=== PATIENT | male | born 1950 | race Caucasian/White ===

== ENCOUNTER 2022-01-15 16:23 | Inpatient (IN) | payer OTHER, BC ==
--- OUTSIDE RECORDS SUMMARY | 2022-01-15 16:29 | XMS REPORT | Continuity of Care Document ---
:1950 Author Organization [facility] t Address [address] [place] [address] Care Team Providers Name Role Phone Warren Luna Primary Care Physician Abelardo PIERSON, Elsa Attending Clinician Unavailable Marino Newman MD Attending Clinician Cristóbal Ochoa MD Attending Clinician CRISTÓBAL OCHOA Attending Clinician Unavailable NABEEL JOHNSON Attending Clinician Unavailable DWAIN VALDEZ Attending Clinician Unavailable TINA RAMIREZ Attending Clinician Unavailable Scar Fox Attending Clinician Sejal PATRICIA-Nabeel Middleton Attending Clinician LEONARDO CARLOS Attending Clinician Unavailable Cristóbal Ochoa MD Admitting Clinician CRISTÓBAL OCHOA Admitting Clinician Unavailable Payers Payer Name Policy Type Policy Number Effective Date Expiration Date S ource MEDICARE-PART B 5 [id number] 2020 00:00:00 BCBS 2 [id number] 2020 00:00:00 Problems Condition Condition Condition Status Onset Resolution Last Treating Co mments Source Name Details Category Date Date Treatment Clinician Date Acute Acute Disease Active 2021-02 Univers cough cough - ity of 00:00: [address] Flu Flu Disease Active 2021-02 Univers - ity of 00:00: [address] Dyslipidem Dyslipidem Disease Active 2021-02 U nivers ia ia 03-03 ity of 00:00: [place] 00 Medical Branch Uncontroll Uncontroll Disease Active 2021-02 U nivers ed ed 03-03 ity of hypertens[place] Type 2 Type 2 Disease Active 2021-02 Univers diabetes diabetes 03-03 ity of mellitus mellitus 00:00: [place] with other with other 00 Me dical specified specified Bran ch complicati complicati on on Elevated Elevated Disease Active 2021-02 Unive rs troponin I troponin I 03-03 it y of level level 00:00: [place] 00 Medical Branch Peripheral Periphera Problem Active 2021-01-05 Memoria nerve l nerve 23:07:23 l disease disease [place] (disorder) (disorder) Active Problem 01/05/2021 [facility] Syncope Syncope Problem Active 2021-01-05 Me moria (disorder) (disorder) 23:07:23 l Active Jacek Problem 01/05/2021 [facility] Hyperlipid Hyperlipi Problem Active 2021-01-05 Memoria emia demia 23:07:23 l (disorder) (disorder) He rmann Active Problem 01/05/2021 [facility] Backache Backache Problem Resolve 2021-01-05 Memoria (finding) (finding) d 23:07:23 l Resolved Jacek Problem 01/05/2021 [facility] Neck pain Neck pain Problem Resolve 2021-01-05 Memoria (finding) (finding) d 23:07:23 l Resolved Jacek Problem 01/05/2021 [facility] Shoulder Shoulder Problem Resolve 2021-01-05 Memoria pain pain d 23:07:23 l (finding) (finding) Herm dianne Resolved Problem 01/05/2021 [facility] Dizziness Dizziness Problem Active 2021-01-05 Memoria (finding) (finding) 23:07:23 l Active [place] Problem 01/05/2021 [facility] Insomnia Insomnia Disease Active Kelse y Seybold GERD GERD Disease Active April (gastroeso (gastroeso Se ybold phageal phageal reflux reflux disease) disease) 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 2 diabetes diabetes mellitus mellitus Allergies, Adverse Reactions, Alerts Allergy Allergy Status Severity Reaction(s) Onset Inactive Treating Comm ents Source Name Type Date Date Clinician Penicill Propensi Active April ins ty to 6-16 Seybold adverse 00:00: reaction 00 s NO KNOWN Drug Active Univers ALLERGIE Class ity of S [facility] penicill penicill Active Deepthi pérez in in heather Read Social History Social Habit Start Date Stop Date Quantity Comments Source History of Passive smoker [place] of tobacco use [facility] Tobacco use and 2022-01-01 2022-01-01 Smokeless tobacco Un iversity of exposure 00:00:00 00:00:00 non-user [facility] Alcohol intake 2022-01-01 2022-01-01 Ex-drinker [facility] 00:00:00 00:00:00 (finding) [facility] Exposure to 2021-12-21 2021-12-31 Not sure [facility] SARS-CoV-2 00:00:00 23:58:00 [facility] (event) [place] Social History 2020-10-13 2020-10-13 [facility] 20:43:37 20:43:37 Sex Ass[birth year] Universit y of 00:00:00 00:00:00 [facility] Smoking Status Start Date Stop Date Source Never smoked tobacco [facility] Medications Ordered Filled Start Stop Current Ordering Indication Dosage Frequency Signature Comments Components Source Medication Medication Date Date Medication? Clinician (SIG) Name Name NIFEdipine 2021-02- Yes [id number] 60mg Take 1 Univers ER 60 mg 1-24 12-25 tablet by ity o f tablet 00:00: 05:59 mouth in [place] 00 :00 the Medical [facility] for 30 days. pantoprazol 2021-02- Yes [id number] 40mg Take 1 Univers e 40 mg EC 1-24 12-25 tablet by ity of tablet 00:00: 05:59 mouth in [place] 00 :00 the [facility] for 30 days. NIFEdipine 2021-02- Yes [id number] 60mg Take 1 Univers ER 60 mg 1-24 12-25 tablet by ity o f tablet 00:00: 05:59 mouth in [place] 00 :00 the [facility] for 30 days. pantoprazol 2021-02- Yes [id number] 40mg Take 1 Univers e 40 mg EC 1-24 12-25 tablet by ity of tablet 00:00: 05:59 mouth in [place] 00 :00 the Medical morning Branch for 30 days. levalbutero 2021-02- No .31mg 0.31 mg, Univers l (XOPENEX) 03-05 Inhalation i ty of nebulizer 18:30: 17:24 , [place]CE, 1 [place] solution [place] :00 dose, On Medical 0.31 mg Sat Branch 01/03/22 at 1230, Routine KCL 2021-02 No 40meq 40 mEq, Univers (KLOR-CON 03-05 Oral, ity of M20) tablet 16:30: 17:49 ONCE, 1 [place] 40 mEq 00 :00 dose, On Medical Sat Branch 01/03/22 at 1030, Routine lisinopriL 2021-02 Yes 20mg Take 20 mg U nivers 20 mg -23 by mouth ity of tablet 13:44: in the [place] [address] morning. Medical Branch carvediloL 2021-02 Yes 25mg Take 25 mg U nivers 25 mg 23 by mouth ity of tablet 13:44: in the [place] [address] morning Medical and 25 mg Branch in the evening. Take with meals. rosuvastati 2021-02 Yes Take by Uni vers n 20 mg 23 mouth. ity of CpSP 13:44: [address] Branch tamsulosin 2021-02 Yes Take by Univ ers 0.4 mg 24 03-05 mouth ity of hr capsule 13:44: daily. [place] [address] Medical Branch insulin 2021-02 Yes 80U inject 80 Unive rs degludec - Units ity of (TRESIBA 13:44: under the [facility] s FLEXTOUCH 42 skin every Medi edwin U-100) 100 morning. Branc h unit/mL (3 mL) InPn pioglitazon 2021-02 Yes 15mg Take 15 mg Univers e (ACTOS) 23 by mouth ity of 15 mg 13:44: in the [facility] [place] [facility] 42 morning. Medical Branch lisinopriL 2021-02 Yes 20mg Take 20 mg U nivers 20 mg -23 by mouth ity of tablet 13:44: in the [place] [address] morning. Medical Branch carvediloL 2021-02 Yes 25mg Take 25 mg U nivers 25 mg -23 by mouth ity of tablet 13:44: in the [place] 42 morning Medical and 25 mg Branch in the evening. Take with meals. rosuvastati 2021-02 Yes Take by Uni vers n 20 mg 23 mouth. ity of CpSP 13:44: [address] Branch tamsulosin 2021-02 Yes Take by Univ ers 0.4 mg 24 -23 mouth ity of hr capsule 13:44: daily. [address] insulin 2021-02 Yes 80U inject 80 Unive rs degludec -23 Units ity of (TRESIBA 13:44: [place] FLEXTOUCH 42 skin every Medi edwin U-100) 100 morning. Branc h unit/mL (3 mL) InPn pioglitazon 2021-02 Yes 15mg Take 15 mg Univers e (ACTOS) 03-05 by mouth ity of 15 mg 13:44: in the [place] tablet 42 morning. Medical Branch benzonatate 2021-02- Yes [id number] 100mg Take 1 Univers 100 mg 03-05 capsule by ity of capsule 00:00: 05:59 mouth [place] 00 :00 every 8 Medical (eight) Branch hours for 7 days. benzonatate 2021-02- Yes [id number] 100mg Take 1 Univers 100 mg 03-05 capsule by ity of capsule 00:00: 05:59 mouth [place] 00 :00 every 8 Medical (eight) Branch hours for 7 days. oseltamivir 2021-02- Yes [id number] 75mg Take 1 Univers 75 mg 03-05 capsule by ity of capsule 00:00: 05:59 mouth in [place] 00 :00 the Medical morning Branch and 1 capsule in the evening. Do all this for 3 days. levalbutero 2021-02- No .31mg 0.31 mg, Univers l (XOPENEX) 03-04 Inhalation i ty of nebulizer 19:30: 20:02 , ONCE, 1 [place] solution 00 :00 dose, On Medical 0.31 mg Tue Branch 01/02/22 at 1330, Routine Sliding 2021-02 Yes Subcutaneo Univ ers Scale -22 us, TID ity of Insulin - 18:00: MEALS+HS, [place] as Lispro 00 First dose Medical (HumaLOG) + (after Branch Fsbg last Testing modificati on) on Sat01/02/22 at 1200, Until Discontinu ed, Routine NIFEdipine 2021-02 Yes 60mg 60 mg, Unive rs ER tablet 03-04 Oral, ity of 60 mg 15:00: DAILY, [place] 00 First dose Medical on Sat [place] 01/02/22 at 0900, Until Discontinu ed, Routine docusate 2021-02 Yes 100mg 100 mg, Unive rs (COLACE) 03-04 Oral, ity of capsule 100 15:00: DAILY, [place] mg 00 First dose Medical on Sat [place] 01/02/22 at 0900, Until Discontinu ed, Routine NaCl 0.9% 2021-02 Yes 1000mL at 150 Univ ers (NS) IV 1-22 mL/hr, IV ity of infusion 14:45: Infusion, [place] 1,000 mL 00 CONTINUOUS Medic al , Starting Branch on Sat01/02/22 at 0845, Until Discontinu ed, Routine melatonin 2021-02 Yes 6mg 6 mg, Univers (MELATIN) 03-04 Oral, ity of tablet 6 mg 05:30: QHSPRN, [place] 34 Starting Medical on Sat [place] 01/01/22 at 2330, Until Discontinu ed, Routine, Insomnia benzonatate 2021-02 Yes 100mg 100 mg, Un susie (TESSALON 03-04 Oral, Q8H, ity of PERLES) 04:00: First dose [place] capsule 100 00 on [facility] Medica l mg 01/01/22 Branch at 2200, Until Discontinu ed, Routine lisinopriL 2021-02 Yes 20mg 20 mg, Unive rs (PRINIVIL,Z 03-04 Oral, BID, it y of ESTRIL) 02:00: First [place] tablet 20 00 (after Medical mg last Branch modificati on) on Sat01/01/22 at 2000, Until Discontinu ed, Routine oseltamivir 2021-02 Yes 75mg 75 mg, Uni vers (TAMIFLU) 03-04 Oral, BID, ity of capsule 75 02:00: 01:59 10 doses, [place] mg 00 :00 First dose Medical (after Branch last reorder) on Sat01/01/22 at 2000, Last dose on Sat01/06/22 at 0800, JERROD enoxaparin 2021-02 Yes 40mg 40 mg, Unive rs (LOVENOX) 03-03 Subcutaneo ity of injection 23:00: [place], [place]ILY, [place] 40 mg 00 First dose Medical on Sat Branch 01/01/22 at 1700, Until Discontinu ed, Routine pantoprazol 2021-02 Yes 40mg 40 mg, Univ ers e 03-03 Oral, ity of (PROTONIX) 18:15: DAILY, [place] EC tablet 00 First dose Medi edwin 40 mg (after Branch last modificati on) on Sat01/01/22 at 1215, Until Discontinu ed, Routine sulfur 2021-02- No [id number] 5mL 5 mL, [facility] ers hexafluorid 03-03 Intravenou i ty of e microsphr 16:15: 16:15 s, ONCE, 1 [place] (LUMASON) 00 :00 dose, On Medica l injection 5 Sat [place] mL 01/01/22 at 1015, Routine
produce production team member approving Restricted medication : RAQUEL WAN tamsulosin 2021-02 Yes .4mg 0.4 mg, Univ ers (FLOMAX) 03-03 Oral, ity of capsule 0.4 15:00: DAILY, [place] mg 00 First dose Medical on Sat Branch 01/01/22 at 0900, Until Discontinu ed, Routine insulin 2021-02 Yes 40U 40 Units, Unive rs glargine 03-03 Subcutaneo ity o f (LANTUS 15:00: us, DAILY, [place] U-100) 00 First dose Medical injection on Sat Branch 40 Units 01/01/22 at 0900, Until Discontinu ed, Routine azithromyci 2021-02- No 500mg 500 mg, U nivers n 03-03 Oral, ity of (ZITHROMAX) 15:00: 14:00 DAILY, 3 [place] tablet 500 00 :00 doses, Medical mg First dose Branch on Sat01/01/22 at 0900, Last dose on Sat01/03/22 at 0900, JERROD
Re ason for Anti-Infec tive: Empiric Therapy for Suspected Infection< br>Empiric Therapy Site: Respirator y
Durat ion of therapy: 72 hours lisinopriL 2021-02 No 20mg 20 mg, Univ ers (PRINIVIL,Z 03-03 Oral, ity of ESTRIL) 15:00: 23:04 DAILY, [place] tablet 20 00 :59 First dose Medi edwin mg on Sat Branch 01/01/22 at 0900, Until Discontinu ed, Routine carvediloL 2021-02 Yes 25mg 25 mg, Unive rs (COREG) 03-03 Oral, BID ity of tablet 25 14:00: MEALS, [place] mg 00 First dose Medical on Sat Branch 01/01/22 at 0800, Until Discontinu ed, Routine Sliding 2021-02 No Subcutaneo Uni vers Scale 03-03 us, Q4H, ity of Insulin - 14:00: 14:37 First dose [place] Lispro 00 :08 (after Medical (HumaLOG) + last Branch Fsbg modificati Testing on) on Sat01/01/22 at 0800, Until Discontinu ed, Routine cloNIDine 2021-02 No .2mg 0.2 mg, [facility] ers (CATAPRES) 03-03 Oral, ity of tablet 0.2 12:30: 11:49 ONCE, 1 [place] mg 00 :00 dose, On Medical [facility] Branch 01/01/22 at 0630, Routine hydralAZINE 2021-02 Yes 10mg 10 mg, [facility] ers (APRESOLINE 03-03 Slow IV ity o f ) injection 11:53: Push, [place] 10 mg 44 Q4HPRN, Medical Starting Branch on Sat01/01/22 at 0553, Until Discontinu ed, STAT, DBP=>100; SBP=>180 NaCl 0.9% 2021-02 No 1000mL at 100 Uni vers (NS) IV 03-03 mL/hr, IV ity of infusion 09:00: 14:38 Infusion, [place] 1,000 mL 00 :18 CONTINUOUS Medic al , Starting Branch on Sat01/01/22 at 0300, Until Sat01/02/22 at 0838, Routine dextrose 2021-02 Yes 250mL 250 mL, IV Un susie 10% (D10W) 03-03 Infusion, ity of bolus 08:51: PRN - SEE [place] infusion 49 INSTRUCTIO Medic al 250 mL NS, Branch Administer over 60 Minutes, Other, If blood glucose is < or = 70 mg/dL and patient is unable to swallow or has mental status changes, Starting on Sat01/01/22 at 0251
If blood glucose is < or = 70 mg/dL and patient is unable to swallow or has mental status changes (Give glucagon order if patient needs fluid restrictio n): IF IV access available: Dextrose 10%. 1. 125 mL (? bag) of D10W IV infusion - equivalent to 12.5 g dextrose 2. Blood glucose - draw blood glucose 15 minutes after D10W Administra tion. 3. If blood glucose is < 80 mg/dL, repeat.
glucagon 2021-02 Yes 1mg 1 mg, Univers (GLUCAGEN 03-03 Intramuscu ity of DIAGNOSTIC 08:51: lar, PRN, [place] KIT) 46 Starting Medical injection 1 on Sat [place] mg 01/01/22 at 0251, Until Discontinu ed, JERROD, Blood Glucose < or = 70 mg/dL and patient is unable to swallow or has mental changes. traMADoL 2021-02- No 50mg 50 mg, Univer s (ULTRAM) 03-03 Oral, ity of tablet 50 08:50: 08:49 Q8HPRN, [place] mg 15 :15 Starting Medical on Sat Branch 01/01/22 at 0250, Until Sat01/03/22 at 0249, Routine, Pain (scale 4-6) acetaminoph 2021-02 Yes 650mg 650 mg, Un susie en 03-03 Oral, ity of (TYLENOL) 08:50: Q6HPRN, [place] tablet 650 14 Starting Medic al mg on Sat Branch 01/01/22 at 0250, Until Discontinu ed, Routine, Pain (scale 1-3) NaCl 0.9% 2021-02- No 1000mL at 999 Uni vers (NS) bolus 03-03 mL/hr, ity of infusion 08:30: 08:00 1,000 mL, [place] 1,000 mL 00 :00 IV Medical Piggyback, Branch ONCE, 1 dose, On Sat01/01/22 at 0230, STAT aspirin 2021-02 No 325mg 325 mg, Unive rs tablet 325 03-03 Oral, ONCE it y of mg 08:30: 07:37 NOW, 1 [place] 00 :00 dose, On [facility] 01/01/22 at 0230, JERROD NaCl 0.9% 2021-02 No 500mL at 999 Univ ers (NS) bolus 03-03 mL/hr, 500 it y of infusion 07:45: 07:43 mL, IV [place] [facility] Branch dose, On [facility] 01/01/22 at 0145, STAT oseltamivir 2021-02 No 75mg 75 mg, Uni vers (TAMIFLU) 03-03 Oral, ONCE ity of capsule 75 07:45: 06:58 NOW, 1 [place] mg 00 :00 dose, On [facility] 01/01/22 at 0145, JERROD ibuprofen 2021-02 No 600mg 600 mg, Uni vers (IBU) 03-03 Oral, ity of tablet 600 06:15: 06:12 ONCE, 1 [place] mg 00 :00 dose, On [facility] 01/01/22 at 0015, JERROD Pyridostigm 2020-02 Yes 60 mg = 1 M emoria ine [place] 0-14 tab, PO, l 60 MG Oral 20:19: BID, # 60 He rmann Tablet 00 tab, 3 [Mestinon] Refill(s), Pharmacy: [facility] [place], 175.26, cm, 11/24/20 15:02:00 CDT, Height, 127.727, kg, 11/24/20 15:02:00 CDT, Weight Pyridostigm 2020-02 Yes 60 mg = 1 M emoria ine [place] 0-14 tab, PO, l 60 MG Oral 20:19: BID, # 60 He rmann Tablet 00 tab, 3 [Mestinon] Refill(s), Pharmacy: [facility] [place], 175.26, cm, 11/24/20 15:02:00 CDT, Height, 127.727, kg, 11/24/20 15:02:00 CDT, Weight Aspirin 81 Yes 81mg Take 81 mg K elsey MG oral 9-20 by mouth Seybold Tablet 13:57: daily Delayed 01 Response Melatonin Yes 2{tbl} Take 2 Mer ey 10 MG oral 9-20 tablets by Sey bold Capsule 13:57: mouth 01 every night at bedtime Baclofen 10 Yes [id number] 10mg Take 1 April MG oral 9-20 tablet (10 Seybol d Tablet 00:00: mg total) 00 by mouth 3 times daily Meloxicam Yes [id number] 15mg Take 1 K elsey 15 MG oral 9-20 tablet (15 Sey bold Tablet 00:00: mg total) 00 by mouth daily Pantoprazol Yes [id number] 40mg Take 1 April e Sodium 40 9-20 tablet (40 Se ybold MG oral 00:00: mg total) Tablet 00 by mouth Delayed daily Response Insulin Pen Yes 1{box} 1 box by April Needle (Pen 08 does not Seyb old [place]) 00:00: apply 32G X 4 MM 00 route does not daily apply Misc Insulin Yes [id number] 48U Inject 48 K elsey Degludec -08 units into Seybo ld (Tresiba 00:00: the skin FlexTouch) 00 daily 100 UNIT/ML subcutaneou s Solution Pen-injecto r Adult Yes 81 mg, Memoria Aspirin 81 9-02 Daily, 0 l mg oral 21:24: Refill(s) Jayshree nn delayed 00 release tablet Adult Yes 81 mg, Memoria Aspirin 81 9-02 Daily, 0 l mg oral 21:24: Refill(s) Jayshree nn delayed 00 release tablet Adult Yes 81 mg, Memoria Aspirin 81 9-02 Daily, 0 l mg oral 21:24: Refill(s) Jayshree nn delayed 00 release tablet Melatonin Yes Bedtime, 0 Me moria 9-02 Refill(s) l 21:03: Jacek 00 Ibuprofen Yes 0 Memoria 9-02 Refill(s) l 21:03: [place] 00 Melatonin Yes Bedtime, 0 Me moria 9-02 Refill(s) l 21:03: [place] 00 Ibuprofen Yes 0 Memoria 9-02 Refill(s) l 21:03: [place] 00 Melatonin Yes Bedtime, 0 Me moria -02 Refill(s) l 21:03: Jacek Ibuprofen Yes 0 Memoria - Refill(s) l 21:03: Jacek 00 3 ML Yes 0 Memoria insulin - Refill(s) l degludec 20:55: Jacek 100 UNT/ML 00 Pen Injector [Tresiba] 3 ML Yes 0 Memoria insulin - Refill(s) l degludec 20:55: Jacek 100 UNT/ML 00 Pen Injector [Tresiba] 3 ML Yes 0 Memoria insulin - Refill(s) l degludec 20:55: [place] 100 UNT/ML 00 Pen Injector [Tresiba] tamsulosin Yes 0.4 mg = 1 M emoria 0.4 mg oral 10-13 cap, PO, l capsule 20:54: Daily, # Endy n 00 30 cap, 0 Refill(s) tamsulosin Yes 0.4 mg = 1 M emoria 0.4 mg oral 10-13 cap, PO, l capsule 20:54: Daily, # Endy n 00 30 cap, 0 Refill(s) gabapentin Yes 200 mg = 2 M emoria 100 MG Oral 10-13 cap, PO, l Capsule 20:54: Bedtime, # Herm dianne 00 240 cap, 0 Refill(s) carvedilol Yes 25 mg = 1 Me moria 25 mg oral 10-13 tab, PO, l tablet 20:54: Q12H, # 60 Jayshree nn 00 tab, 0 Refill(s) pantoprazol Yes 40 mg = 1 M emoria e 40 mg 10-13 tab, PO, l oral 20:54: Daily, # [place] enteric 00 30 tab, 0 coated Refill(s) tablet rosuvastati Yes 40 mg = 1 M emoria n 40 mg 10-13 tab, PO, l oral tablet 20:54: Bedtime, # Jacek 00 90 tab, 3 Refill(s) lisinopril Yes 40 mg = 1 Me moria 40 mg oral 10-13 tab, PO, l tablet 20:54: Daily, # [place] 00 30 tab, 0 Refill(s) venlafaxine Yes 75 mg = 1 M emoria 75 mg oral 10-13 cap, PO, l capsule, 20:54: Daily, # Jayshree nn extended 00 30 cap, 0 release Refill(s) 3 ML Yes 1.2 mg, Memoria liraglutide 10-13 SUB-Q, l 6 MG/ML 20:54: Daily, # 6 Herm dianne Prefilled 00 mL, 3 Syringe Refill(s) [Victoza] gabapentin Yes 200 mg = 2 M emoria 100 MG Oral 10-13 cap, PO, l Capsule 20:54: Bedtime, # Herm dianne 00 240 cap, 0 Refill(s) carvedilol Yes 25 mg = 1 Me moria 25 mg oral 10-13 tab, PO, l tablet 20:54: Q12H, # 60 Jayshree nn 00 tab, 0 Refill(s) pantoprazol Yes 40 mg = 1 M emoria e 40 mg 10-13 tab, PO, l oral 20:54: Daily, # [place] enteric 00 30 tab, 0 coated Refill(s) tablet rosuvastati Yes 40 mg = 1 M emoria n 40 mg 10-13 tab, PO, l oral tablet 20:54: Bedtime, # [place] 00 90 tab, 3 Refill(s) lisinopril Yes 40 mg = 1 Me moria 40 mg oral 10-13 tab, PO, l tablet 20:54: Daily, # [place] 00 30 tab, 0 Refill(s) venlafaxine Yes 75 mg = 1 M emoria 75 mg oral 10-13 cap, PO, l capsule, 20:54: Daily, # Jayshree nn extended 00 30 cap, 0 release Refill(s) 3 ML Yes 1.2 mg, Memoria liraglutide 10-13 SUB-Q, l 6 MG/ML 20:54: Daily, # 6 Herm dianne Prefilled 00 mL, 3 Syringe Refill(s) [Victoza] tamsulosin Yes 0.4 mg = 1 M emoria 0.4 mg oral 10-13 cap, PO, l capsule 20:54: Daily, # End[place] n 00 30 cap, 0 Refill(s) gabapentin Yes 200 mg = 2 M emoria 100 MG Oral 10-13 cap, PO, l Capsule 20:54: Bedtime, # Herm dianne 00 240 cap, 0 Refill(s) carvedilol Yes 25 mg = 1 Me moria 25 mg oral 10-13 tab, PO, l tablet 20:54: Q12H, # 60 Jayshree nn 00 tab, 0 Refill(s) pantoprazol Yes 40 mg = 1 M emoria e 40 mg 10-13 tab, PO, l oral 20:54: Daily, # [place] enteric 00 30 tab, 0 coated Refill(s) tablet rosuvastati Yes 40 mg = 1 M emoria n 40 mg 10-13 tab, PO, l oral tablet 20:54: Bedtime, # [place] 00 90 tab, 3 Refill(s) lisinopril Yes 40 mg = 1 Me moria 40 mg oral 10-13 tab, PO, l tablet 20:54: Daily, # Jacek 00 30 tab, 0 Refill(s) venlafaxine Yes 75 mg = 1 M emoria 75 mg oral 10-13 cap, PO, l capsule, 20:54: Daily, # Jayshree nn extended 00 30 cap, 0 release Refill(s) 3 ML Yes 1.2 mg, Memoria liraglutide 10-13 SUB-Q, l 6 MG/ML 20:54: Daily, # 6 Herm dianne Prefilled 00 mL, 3 Syringe Refill(s) [Victoza] Gabapentin Yes [id number] 100mg Take 1 April 100 MG oral 8-24 capsule Seybo ld Capsule 00:00: (100 mg 00 total) by mouth 2 times daily Tamsulosin Yes TAKE ONE Donny sey HCl 0.4 MG 7-26 (1) Seybold oral 00:00: CAPSULE BY Capsule 00 MOUTH ONCE DAILY. Venlafaxine Yes 75mg Take 1 Mer ey HCl 75 MG 7-19 capsule Seybold oral 00:00: (75 mg Capsule 24 00 total) by Hour mouth Sustained daily Release Liraglutide Yes [id number] 1.8mg Inject 1.8 April (Victoza) 6-17 mg into Seybold 18 MG/3ML 00:00: the skin subcutaneou 00 daily s Solution Pen-injecto r Pantoprazol 202- No 40mg Take 1 Donny sey e Sodium 40 5-28 09-20 tablet (40 S eybold MG oral 00:00: 00:00 mg total) Tablet 00 :00 by mouth Delayed daily Response Carvedilol Yes TAKE ONE Ke lsey 25 MG oral 5-17 (1) Seybold Tablet 00:00: TABLET(S) 00 BY MOUTH TWICE A DAY WITH MEALS. Lisinopril Yes 40mg Take 40 mg K elsey 40 MG oral 5-05 by mouth Seybo ld Tablet 00:00: daily 00 Rosuvastati Yes 10mg Take 1 Mer ey n Calcium 4-05 tablet (10 Seyb old 10 MG oral 00:00: mg total) Tablet 00 by mouth daily Immunizations Ordered Immunization Filled Immunization Date Status Commen ts Source Name Name Covid-19 Vaccine 2020-06-06 Completed April bailey (Moderna), Mrna-lnp, 00:00:00 Xander Protein, Pf, 100 Mcg/0.5ml,IM Covid-19 Vaccine 2020-05-09 Completed April bailey (Moderna), Mrna-lnp, 00:00:00 Xander Protein, Pf, 100 Mcg/0.5ml,IM Tdap- (Boostrix, 2015-12-09 Completed April bailey Adacel) 00:00:00 Vital Signs Vital Name Observation Time Observation Value Comments Source Respiratory rate 2022-01-03 17:25:00 16 /min [facility] Medical [place] Oxygen saturation in 2022-01-03 17:25:00 92 /min [facility] Arterial blood by [facility] Pulse oximetry Branch Systolic blood 2022-01-03 17:17:00 97 mm[Hg] Univer sity of pressure [facility] Diastolic blood 2022-01-03 17:17:00 55 mm[Hg] Unive rsity of pressure [facility] Heart rate 2022-01-03 17:17:00 88 /min [facility] Body temperature 2022-01-03 17:17:00 [facility]83 [facility] weight 2022-01-03 11:27:00 134.99 kg [facility] BMI 2022-01-03 11:27:00 41.51 kg/m2 [facility] Body height 2022-01-01 05:55:00 180.3 cm [facility] Systolic blood 2020-10-31 18:54:00 148 mm[Hg] April Seybold pressure Diastolic blood 2020-10-31 18:54:00 84 mm[Hg] Kelse y Seybold pressure Heart rate 2020-10-31 18:54:00 68 /min April S eybold Body temperature 2020-10-31 18:54:00 35.56 Filomena Mer ey Seybold Respiratory rate 2020-10-31 18:54:00 14 /min Mer ey Seybold Body height 2020-10-31 18:54:00 180.3 cm April S eybold Body weight 2020-10-31 18:54:00 124.739 kg April S eybold BMI 2020-10-31 18:54:00 38.35 kg/m2 April S eybold Systolic (mm Hg) 2020-11-24 20:02:00 Eliezer rial [place] Diastolic (mm Hg) 2020-11-24 20:02:00 Mem orial Jacek Heart Rate 2020-11-24 20:02:00 [facility] [place] Respitory Rate 2020-11-24 20:02:00 Memori al [place] Height 2020-11-24 20:02:00 175.26 cm [facility] Weight 2020-11-24 20:02:00 [facility] BMI Calculated 2020-11-24 20:02:00 Memori al Jacek Systolic (mm Hg) 2020-10-13 20:32:00 [facility] Diastolic (mm Hg) 2020-10-13 20:32:00 William Read Height 2020-10-13 20:32:00 180.34 cm Selena Read Weight 2020-10-13 20:32:00 Selena Read BMI Calculated 2020-10-13 20:32:00 Deepthi Mason Procedures Procedure Date / Time Performing Clinician Source Performed POCT GLUCOSE (AUTOMATED) 2022-01-03 13:18:00 Cristóbal Ochoa [facility] BASIC METABOLIC PANEL 2022-01-03 10:02:00 Cristin Cerda [facility] (NA, K, CL, CO2, GLUCOSE, Medica l Branch BUN, CREATININE, CA) POCT GLUCOSE (AUTOMATED) 2022-01-03 02:47:00 Cristóbal Ochoa [facility] POCT GLUCOSE (AUTOMATED) 2022-01-02 22:54:00 Cristóbal Ochoa [facility] POCT GLUCOSE (AUTOMATED) 2022-01-02 17:53:00 Cristóbal Ochoa [facility] POCT GLUCOSE (AUTOMATED) 2022-01-02 14:06:00 Cristóbal Ochoa [facility] CREATINE KINASE 2022-01-02 09:14:00 Nadine Che [facility] MAGNESIUM 2022-01-02 09:14:00 [facility] BASIC METABOLIC PANEL 2022-01-02 09:14:00 Behzad Seay [facility] (NA, K, CL, CO2, GLUCOSE, Medica l Branch BUN, CREATININE, CA) LIPID PANEL (96798)(TOTAL 2022-01-02 09:14:00 Cristóbal [facility]choa [facility]IG[facility], HDL) N-TERMINAL PRO-BNP 2022-01-02 09:14:00 Cristóbal Ochoa [facility] POCT GLUCOSE (AUTOMATED) 2022-01-02 09:12:00 Cristóbal Ochoa [facility] POCT GLUCOSE (AUTOMATED) 2022-01-02 05:24:00 Cristóbal Ochoa [facility] POCT GLUCOSE (AUTOMATED) 2022-01-02 01:54:00 Cristóbal Ochoa [facility] POCT GLUCOSE (AUTOMATED) 2022-01-01 22:48:00 Cristóbal Ochoa [facility] TROPONIN I 2022-01-01 18:04:00 [facility] 2022-01-01 17:58:00 Marino Newman [facility] TRANSTHORACIC ECHO (TTE) 2022-01-01 15:40:00 Behzad Seay [facility] COMPLETE W/ [facility] PO[facility] GLUCOSE (AUTOMATED) 2022-01-01 13:58:00 Marino Newman [facility] PHOSPHORUS 2022-01-01 09:01:00 Neil [facility] LACTIC ACID WHOLE BLOOD 2022-01-01 09:01:00 [facility] 2022-01-01 06:59:00 Marino Newman [facility] XR CHEST 1 VW 2022-01-01 06:19:00 Marino Newman [facility] LACTIC ACID WHOLE BLOOD 2022-01-01 06:12:00 Marino Newman [facility] BLOOD CULTURE SCREEN 2022-01-01 06:07:00 Marino Newman [facility] CK (CREATINE KINASE) + MB 2022-01-01 06:07:00 Marino Newman [facility] TROPONIN I 2022-01-01 06:07:00 Marino Newman [facility] COMP. METABOLIC PANEL 2022-01-01 06:07:00 Marino Newman [facility] ([id number]) [facility] CBC WITH DIFF 2022-01-01 06:07:00 Marino Newman [facility] GLYCOSYLATED HEMOGLOBIN 2022-01-01 06:07:00 Behzad Seay [facility] (A1C) [facility] RAPID INFLUENZA A/B 2022-01-01 06:07:00 Marino Newman [facility] COVID-19 (ID NOW RAPID 2022-01-01 06:07:[address] [facility] LAB ONLY COVID 2022-01-01 06:07:00 Marino Newman [place] [facility] HB ECG ROUTINE & RHYTHM 2022-01-01 05:56:35 Marino Newman [facility] [place] by [facility] Knee arthroplasty [facility] Jayshree nn Encounters Start End Encounter Admission Attending Care Care Encounter Source Date/Time Date/Time Type Type Clinicians Facility Department ID 2022-01-08 2022-01-08 Transition MIKE Zhou [id number] Univers 00:00:00 00:00:00 of Care Elsa SANCHEZ [id number] it y of [place] [id number] [facility] [id number] [facility] [address] 2021-12-31 2022-01-03 [facility] Marino Newman [facility] [id number] Univers 23:48:00 13:41:00 Encounter Cristóbal Ochoa [id number] ity [facility] [id number] [facility] [id number] [facility] [address] 2021-12-31 2022-01-[address] [facility] [id number] Univers 23:48:00 13:41:00 CRISTÓBAL reyes [facility] 2021-04-27 2021-04-27 Outpatient APRIL JOHNSON [id number] April 00:00:00 00:00:00 NABEEL france 2021-01-09 2021-01-09 Outpatient APRIL VALDEZ [id number] April 00:00:00 00:00:00 DWAIN france 2021-01-04 2021-01-04 Outpatient TINA RAMIREZ [id number] April 00:00:00 00:00:00 Laurenol román 2021-01-03 2021-01-03 Ambulatory nullFlavo MNA [id number] [facility] 20:15:00 20:15:00 Pre-Reg r Neurology 04 l Roger Read 2021-01-03 2021-01-03 Ambulatory nullFlavo MNA [id number] [facility] 20:15:00 20:15:00 Pre-Reg r Neurology 04 l Roger Read 2021-01-03 2021-01-03 Outpatient MHIE IE [id number] [facility] 14:15:00 14:15:00 04 heather Read 2021-01-03 2021-01-03 Outpatient Domin[facility] [id number] 14:15:00 14:15:00 Scar 04 Thomas 2020-11-24 2020-11-25 Outpatient nullFlavo MNA [id number] [facility] 19:00:00 04:59:59 r Neurology 03 l Roger Read 2020-11-24 2020-11-25 Outpatient nullFlavo MNA [id number] [facility] 19:00:00 04:59:59 r Neurology 03 l Roger Read 2020-11-24 2020-11-24 Outpatient Dominique [facility] [id number] 14:00:00 23:59:59 Scar 03 Thomas 2020-11-24 2020-11-24 Outpatient MHIE IE [id number] Memoria 14:00:00 14:00:00 03 heather Read 2020 2020-11-22 Outpatient nullFlavo MNA [id number] Memoria 20:00:00 04:59:59 r Neurology 02 l Roger Read 2020 2020-11-22 Outpatient nullFlavo MNA [id number] Mem[facility] 20:00:00 04:59:59 r Neurology 02 l Roger Read 2020 2020 Outpatient Dominique [facility] [id number] 15:00:00 23:59:59 Scar 02 Thomas 2020 2020 Outpatient MHIE MHIE [id number] Memoria 15:00:00 15:00:00 02 heather Read 2020-11-14 2020-11-14 Outpatient APRIL VALDEZ [id number] April 00:00:00 00:00:00 DWAIN Seybol d 2020-11-02 2020-11-02 Outpatient JOSÉ MIGUEL APRIL ROSADO [id number] April 00:00:00 00:00:00 DWAIN Seybol d 2020-10-31 2020-10-31 Office Feroz Johnson [id number] April 13:47:35 14:17:35 Visit Nabeel Lopez 350.1.13.13 dominique [id number] [id number] 2020-10-13 2020-10-14 Outpatient nullFlavo MNA [id number] Memoria 20:30:00 04:59:59 r Neurology 01 heather Read 2020-10-13 2020-10-14 Outpatient nullFlavo MNA [id number] [facility] 20:30:00 04:59:59 r Neurology 01 heather Read 2020-10-13 2020-10-13 Outpatient FILIBERTO Fox [facility] [id number] 15:30:00 23:59:59 Scar Zacarias Guzman 2020-10-13 2020-10-13 Outpatient HAY GUIDO [id number] [facility] 15:30:00 15:30:00 01 heather Read 2020-09-15 2020-09-15 Outpatient Ju [facility] [id number] Univers 15:40:00 15:40:00 LEONARDO reyes [facility] Results Test Description Test Time Test Comments Results Result Comments Source POCT GLUCOSE (AUTOMATED) 2022-01-03 13:42:56 Test Item Value Reference Range Interpretation Comme nts POCT GLU (test code = 0956877191) 114 mg/dL 70-110 H Lab Interpretation (test code = 43245-2) Abnormal [facility] GLUCOSE (AUTOMATED)2022-01-03 03:19:14 Test Item Value Reference Range Interpretation Comments POCT GLU (test code = 3293467258) 140 mg/dL 70-110 H Lab Interpretation (test code = Abnormal 61932-7) [facility] GLUCOSE (AUTOMATED)2022-01-02 23:59:28 Test Item Value Reference Range Interpretation Comments POCT GLU (test code = 5628927038) 155 mg/dL 70-110 H Lab Interpretation (test code = Abnormal 34781-0) [facility] GLUCOSE (AUTOMATED)2022-01-02 18:07:48 Test Item Value Reference Range Interpretation Comments POCT GLU (test code = 9197403091) 142 mg/dL 70-110 H Lab Interpretation (test code = Abnormal 92110-3) [facility] GLUCOSE (AUTOMATED)2022-01-02 14:18:05 Test Item Value Reference Range Interpretation Comments POCT GLU (test code = 3609294912) 104 mg/dL 70-110 Lab Interpretation (test code = Normal 08987-6) [facility] GLUCOSE (AUTOMATED)2022-01-02 14:00:11 Test Item Value Reference Range Interpretation Comments POCT GLU (test code = 5466112877) 96 mg/dL 70-110 Lab Interpretation (test code = Normal 84542-3) [facility] [id number] 13:50:45 Test Item Value Reference Range Interpretation Comments CK (test code = 9104418593) 7672 U/L 33-194 H Lab Interpretation (test code = Abnormal 79452-5) [facility] [id number] 11:20:18 Test Item Value Reference Range Interpretation Comments NT-proBNP (test code 482 pg/mL See_Comment H [Autom ated = 5051124705) message] The system which generated this result transmitted reference range : <=125. The reference range was not used to interpret this result as normal/abnormal . ALVARO (test code = ALVARO) Biotin has been reported to cause a negative bias, interpret results relative to patient's use of biotin. Lab Interpretation Abnormal (test code = 19969-5) [facility] (77542)(TOTAL CHOLESTEROL, TRIGLYCERIDES, HDL)2022-01-02 11:16:40 Test Item Value Reference Range Interpretation Comments CHOL (test code = 140 mg/dL 120-200 5514479523) HDL (test code = 39 mg/dL See_Comment L [Automated message] 9395655475) The system whic h generated this result transmit barbara reference range : >=40. The refer ence range was not u sed to interpret th is result as normal/abnormal . HDLC RATIO (test code = See_Comment [Au tomated message] 8311040286) The system [employer] generated this result transmit barbara reference range : <=5.0. The refe rence range was not u sed to interpret th is result as normal/abnormal . TRIG (test code = 195 mg/dL 30-170 H 4922022978) LDL CHOL (test code = 62 mg/dL See_Comment [Auto mated message] 91821-9) The system [employer] generated this result transmit barbara reference range : <=160. The refe rence range was not u sed to interpret th is result as normal/abnormal . VLDL (test code = 39 mg/dL 5-60 4092347832) Lab Interpretation (test Abnormal code = 35561-3) [facility] [id number] 11:16:20 Test Item Value Reference Range Interpretation Comments MAGNESIUM (test code = 6355316306) 1.7 mg/dL 1.7-2.4 Lab Interpretation (test code = Normal 82928-0) [facility] Metabolic Panel (NA, K, CL, CO2, GLUCOSE, BUN, CREATININE, CA)2022-01-02 11:16:19 Test Item Value Reference Range Interpretation Comments NA (test code = 137 mmol/L 135-145 4647853398) K (test code = 3.1 mmol/L 3.5-5.0 L 7816647059) CL (test code = 104 mmol/L 98-108 9760805953) CO2 TOTAL (test code = 25 mmol/L 23-31 2351569228) AGAP (test code = 2-16 4803278279) BUN (test code = 16 mg/dL 7-23 2926148176) GLUCOSE (test code = 92 mg/dL 70-110 7966434116) CREATININE (test code = 1.00 mg/dL 0.60-1.25 6533600893) CALCIUM (test code = 8.7 mg/dL 8.6-10.6 2094920724) eGFR (test code = mL/min/1.73m2 5048615869) ALVARO (test code = ALVARO) Association of Glomerular Filtration Rate (GFR) and Staging of Kidney Disease* + --+ --+ ------+| GFR (mL/min/1.73 m2) ?| With Kidney Damage ?| ?Without Kidney Damage+ --------+ --------+ +| ?>90 ?| ?Stage one ?| ? Normal ?+ ---+ ---+ -------+| ?60-89 ?| ?Stage two ?| ? Decreased GFR ? + --+ --+ ------+| ?30-59 ?| ?Stage three ?| ? Stage three ? + --+ --+ ------+| ?15-29 ?| ?Stage four ? | ? Stage four ?+ ---+ ---+ -------+| ?<15 (or dialysis) ? ?| ?Stage five ? | ? Stage five ?+ ---+ ---+ -------+ *Each stage assumes the associated GFR level has been in effect for at least three months. ?Stages 1 to 5, with or without kidney disease, indicate chronic kidney disease. Notes: Determination of stages one and two (with eGFR >59mL/min/1.73 m2) requires estimation of kidney damage for at least three months as defined by structural or functional abnormalities of the kidney, manifested by either:Pathological abnormalities or Markers of kidney damage (including abnormalities in the composition of the blood or urine or abnormalities in imaging tests). Lab Interpretation Abnormal (test code = 32157-5) [facility] GLUCOSE (AUTOMATED)2022-01-02 05:29:09 Test Item Value Reference Range Interpretation Comments POCT GLU (test code = 5864654075) 103 mg/dL 70-110 Lab Interpretation (test code = Normal 28262-2) [facility] GLUCOSE (AUTOMATED)2022-01-02 02:17:17 Test Item Value Reference Range Interpretation Comments POCT GLU (test code = 9586776927) 177 mg/dL 70-110 H Lab Interpretation (test code = Abnormal 22066-3) [facility] GLUCOSE (AUTOMATED)2022-01-01 22:55:39 Test Item Value Reference Range Interpretation Comments POCT GLU (test code = 4110497755) 134 mg/dL 70-110 H Lab Interpretation (test code = Abnormal 79952-0) [facility]2022-01-01 22:52:33 Test Item Value Reference Range Interpretation Comments Height (test code = in 3453416635) Weight (test code = lbs 3825773304) Systolic BP (test code = mmHg 1607747422) Diastolic BP (test code mmHg = 9639737490) Heart Rate (test code = bpm 7017989811) BSA (test code = 2.46 m2 5795559044) Ao root diam (test code 3.50 cm = 5086729722) Aortic root (test code = 3.5 cm 8331729174) Ao root annulus (test 3.5 cm code = 8244506085) LVOT diameter (test code 1.85 cm = 4562843965) LVOT area (test code = 2.70 cm2 6632294405) LAV(MOD-sp4) (test code 49.30 mL = 4624663567) E wave decelartion time 0.25 s (test code = 8963397788) MV Peak E Thanh (test code 71.0 cm/s = 2309821387) MV stenosis pressure 1/2 76.1 ms time (test code = 5585807244) MV Peak A Thanh (test code 74.4 cm/s = 5502591761) E/A ratio (test code = ratio 1600157213) MV Prop V (test code = 54.30 cm/s 3711969237) MV E/e' septal (test 8.7 cm/s code = 4749658900) Tapse (test code = 2.5 cm 4563160830) LVOT stroke volume (test 74.10 cm3 code = 4784759902) LVOT peak thanh (test code 125.7 cm/s = 2069802497) LVOT mn grad (test code mmHg = 6974531532) AV LVOT peak gradient mmHg (test code = 5792698164) LVOT peak VTI (test code 27.4 cm = 3196149624) LV V1 mean (test code = 101.30 cm/s 5859039430) Aortic valve mean 100.3 cm/s velocity (test code = 5855597241) Ao peak thanh (test code = 132.3 cm/s 6443010919) Ao VTI (test code = 24.7 cm 2302434131) AV area by cont VTI 3.0 cm2 (test code = 2133183242) AV area peak thanh (test 2.6 cm2 code = 0295950777) Ao max PG (test code = 7.00 mm[Hg] 7128500394) AV peak gradient (test mmHg code = 3426024253) AV valve area (test code 3.00 cm2 = 1792349067) AV mean gradient (test mmHg code = 4110455306) LVIDD (test code = 3.80 cm 8591094986) Left Ventricular End 63.0 mL Diastolic Volume by Teichholz Method (test code = 1364586) IVS (test code = 1.56 cm 5696191666) Interventricular Septum 1.56 cm Diastolic Thickness by 2D (test code = 9838878) LVPWD (test code = 1.56 cm 7027146782) PW (test code = 1.56 cm 0.6-1.2 2294798225) EF(Teich) (test code = 55.20 % 8910654058) LVIDS (test code = 2.70 cm 6782537058) Left Ventricular End 28.2 mL Systolic Volume by Teichholz Method (test code = 4467946) FS (test code = 28 % 1048783693) EF - 2D (test code = 55.20 % 53545097) Radiology Study observation (narrative) (test code = 00097-0) ALVARO (test code = ALVARO) ?Left?Ventricle: Left ventricle size is normal. Normal wall thickness. Normal wall motion. Normal systolic function with a visually estimated EF of 60 - 65%. There is impaired relaxation. ?Right?Ventricle: Right ventricle size is normal. Normal systolic function. ?Tricuspid?Valve: Insufficient regurgant jet to estimate RVSP. ?IVC/SVC: IVC was not well visualized. Left VentricleLeft ventricle size is normal. Normal wall thickness. Normal wall motion. Normal systolic function with a visually estimated EF of 60 - 65%. There is impaired relaxation.Right VentricleRight ventricle size is normal. Normal systolic function.Left AtriumLeft atrium size is normal.Right AtriumRight atrium size is normal. There is a prominent Eustachian valve.IVC/SVCIVC was not well visualized.Mitral ValveMitral valve structure is normal. Trace transvalvular regurgitation.Tricusp id ValveTricuspid valve structure is normal. Trace transvalvular regurgitation. Insufficient regurgant jet to estimate RVSP.Aortic ValveTricuspid. Mildly thickened cusps. Mildly calcified cusps.Pulmonic ValveNot well visualized.Ascending AortaNormal sized aorta.PericardiumThe pericardium is normal.Study DetailsStudy quality was adequate. A complete echocardiogram was performed using 2D, color flow Doppler and spectral Doppler. 5 mL of Lumason ultrasound enhancing agent used. [facility] GLUCOSE (AUTOMATED)2022-01-01 18:09:07 Test Item Value Reference Range Interpretation Comments POCT GLU (test code = 4418181538) 153 mg/dL 70-110 H Lab Interpretation (test code = Abnormal 51836-7) [facility] GLUCOSE (AUTOMATED)2022-01-01 14:18:07 Test Item Value Reference Range Interpretation Comments POCT GLU (test code = 6071799703) 199 mg/dL 70-110 H Lab Interpretation (test code = Abnormal 07517-7) [facility] [id number] 10:37:16 Test Item Value Reference Range Interpretation Comments PHOSPHORUS (test code = 6507561419) 2.6 mg/dL 2.5-5.0 Lab Interpretation (test code = Normal 69573-3) [facility]"
--- NOTE | 2022-01-15 17:25 | RAD REPORT ---
EXAM DESCRIPTION: Hoang Single View01/15/2022 5:19 pm CLINICAL HISTORY: Hypertension/weakness COMPARISON: 2020 FINDINGS: The lungs appear clear of acute infiltrate. The heart is normal size IMPRESSION: No acute abnormalities displayed
[2022-01-15 17:46] LABS: Absolute Lymphocytes (CBC) 2.8 K/uL (0.7-4.9); Hematocrit 38.5 % (39.6-49.0); Lymphocytes % 28.1 % (15.3-44.8); MCV 89.7 fL (80-100); MPV 7.7 fL (7.6-11.3); Protime INR 1.12
[2022-01-15 17:56] LABS: Albumin 3.6 g/dL (3.4-5.0); Bilirubin Direct 0.2 mg/dL (0-0.2); Bilirubin Total 0.5 mg/dL (0.2-1.0); Magnesium 1.9 mg/dL (1.8-2.4); Potassium 3.7 mmol/L (3.5-5.1); Troponin High Sensitivity 8.1 pg/mL (<58.9)
[2022-01-15] MEDS ORDERED: NA CHLORIDE 0.9% 1,000 ML ONE (18:19)
[2022-01-15 19:49] LABS: Urine Blood Negative (Negative); Urine Glucose Negative (Negative); Urine Protein Negative (Negative); Urine Specific Gravity 1.015 (1.005-1.030); Urine pH 5.5 (5.0-7.0)
[2022-01-15 20:27] LABS: Urine Mucus Slight /HPF (None Seen); Urine RBC <5 /HPF (None Seen); Urine WBC Clump Rare /HPF (None Seen)
--- NOTE | 2022-01-15 20:46 | ER ---
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 Luna called and said to [facility] come to ED for dehydration. Recent admit to [facility] for Flu and dehydration, still feel weak and rundown. Coronavirus screen: Vaccine status: Patient reports receiving the 2nd dose of the covid vaccine. At this time, the client does not indicate any symptoms associated with coronavirus-19. Ebola Screen: No symptoms or risks identified at this time. Initial Sepsis Screen: Does the patient meet any 2 criteria? No. Patient's initial sepsis screen is negative. Does the patient have a suspected source of infection? No. Patient's initial sepsis screen is negative. Risk Assessment: Do you want to hurt yourself or someone else? Patient reports no desire to harm self or others. Onset of symptoms is unknown. 16:50 Method Of Arrival: Wheelchair [facility] 16:50 Acuity: JOSELINE 3 jl7 Triage Assessment: 16:52 General: Appears in no apparent distress. uncomfortable, Behavior is calm, cooperative, jl7 appropriate for age. Pain: Denies pain. Neuro: Level of Consciousness is awake, alert, obeys commands, Oriented to person, place, time, situation. Cardiovascular: Patient's skin is warm and dry. Respiratory: Airway is patent Respiratory effort is even, unlabored, Respiratory pattern is regular, symmetrical. Derm: Skin is pink, warm \T\ dry. Historical: - Allergies: 16:52 No Known Allergies; jl7 - PMHx: 16:52 Diabetes mellitus; Hypertensive disorder; Atrial fibrillation; GERD; jl7 - Immunization history:: Client reports receiving the 2nd dose of the Covid vaccine. - Social history:: Smoking status: Patient denies any tobacco usage or history of. Screenin:00 Abuse screen: Denies threats or abuse. Denies injuries from another. Nutritional bp screening: No deficits noted. Tuberculosis screening: No symptoms or risk factors identified. Fall Risk Fall in past 12 months (25 points). No secondary diagnosis (0 pts). IV access (20 points). Ambulatory Aid- Crutches/Cane/Walker (15 pts). Gait- Normal/Bed Rest/Wheelchair (0 pts) Mental Status- Oriented to own ability (0 pts). Total Kim Fall Scale indicates High Risk Score (45 or more points). Fall prevention measures have been instituted. Side Rails Up X 2 Placed Close to Nursing Station Frequent Obs/Assessments Occuring Family Present and informed to notify staff if the need to leave the bedside As available patient and family educated on Fall Prevention Program and Strategies. Assessment: 17:00 General: SEE TRIAGE NOTE. bp 17:59 Reassessment: No changes from previously documented assessment. Patient and/or family bp updated on plan of care and expected duration. Pain level reassessed. 18:48 Reassessment: PT IN [place] FOR HYPOTENSION. FAILED ORTHOSTATICS. bp 20:14 Reassessment: No changes from previously documented assessment. Patient and/or family as6 updated on plan of care and expected duration. Pain level reassessed. Patient states feeling better. Vital Signs: 16:50 BP 116 / 67; Pulse 74; Resp 17; Temp 97; Pulse Ox 98% ; Weight 126.55 kg; Height 5 ft. jl7 10 in. (177.80 cm); Pain 0/10; 17:59 BP 107 / 48; Pulse 62; Resp 17; Pulse Ox 95% ; bp 18:15 BP 90 / 32; Pulse 64; Resp 18; Pulse Ox 95% ; bp 18:30 BP 92 / 34; Pulse 64; Resp 18; Pulse Ox 98% ; bp 18:45 BP 117 / 60; Pulse 63; Resp 14; Pulse Ox 96% ; bp 20:13 BP 99 / 47; Pulse 68; Resp 17 S; Pulse Ox 95% on R/A; as6 22:12 BP 115 / 63; Pulse 64; Resp 16 S; Pulse Ox 98% on R/A; as6 23:11 BP 134 / 68; Pulse 69; Resp 13 S; Pulse Ox 96% on R/A; as6 16:50 Body Mass Index 40.03 (126.55 kg, 177.80 cm) jl7 ED Course: 16:26 Patient arrived in ED. am2 16:26 Warren Luna MD is Private Physician. am2 16:40 Jamison Osuna PA is PHCP. cp 16:40 Dano Jay MD is Attending Physician. cp 16:52 Triage completed. jl7 16:52 Arm band placed on right wrist. jl7 17:00 Patient has correct armband on for positive identification. Bed in low position. Call bp light in reach. Side rails up X2. Adult w/ patient. 17:05 Gisele Henriquez, RN is Primary Nurse. mb9 17:15 Inserted saline lock: 20 gauge in right forearm, using aseptic technique. Blood bp collected. 17:21 XRAY Chest (1 view) In Process Unspecified. EDMS 17:44 Wilbert Lepe, RN is Primary Nurse. bp 20:45 Warren Luna MD is Hospitalizing Provider. cp 23:13 No provider procedures requiring assistance completed. Patient admitted, IV remains in as6 place. Administered Medications: 18:00 Drug: NS 0.9% 1000 ml Route: IV; Rate: 1 bolus; Site: right forearm; bp 23:14 Follow up: Response: No adverse reaction; IV Status: Completed infusion; IV Intake: as6 1000ml 18:17 Not Given (Physician Discretion): NS 0.9% 500 ml IV at bolus once cp 18:17 Not Given (Physician Discretion): NS 0.9% 500 ml IV at 125 ml/hr continuous cp Medication: 23:13 VIS not applicable for this client. as6 Intake: 23:14 IV: 1000ml; Total: 1000ml. as6 Outcome: 20:46 Decision to Hospitalize by Provider. cp 23:20 Patient left the ED. mw2 Signatures: Dispatcher [employer] EDAZ Jamison Osuna PA PA cp Lora Smalls, RN RN jl7 Chapis Perkins am2 Wilbert Lepe, RN RN bp Jose Espinosa mw2 Bernardo Guaman RN RN as6 Gisele Henriquez, RN RN mb9 Corrections: (The following items were deleted from the chart) 16:53 16:52 Home Meds: None; 7 jl
--- NOTE | 2022-01-15 20:46 | EDPHYS ---
Physician Documentation [facility] Name: César Vargas Age: 71 yrs Sex: Male : 1950 Arrival Date: 01/15/2022 Time: 16:26 Bed 4 Private MD: Warren Luna ED Physician Dano Jay HPI: 01/15 17:00 This 71 yrs old Male presents to ER via Wheelchair with complaints of dehydration, cp General Weakness, Dizziness, Abnormal Lab Results. 17:00 The patient's problem is reported as weakness, that is generalized, dizziness. cp 17:00 Onset: The symptoms/episode began/occurred gradually. Duration: The episode is cp continuous. Associated signs and symptoms: Pertinent positives: lightheadedness, Pertinent negatives: abdominal pain, chest pain, confusion, numbness, palpitations, vomiting. Severity of symptoms: in the emergency department the symptoms are unchanged despite home interventions. Patient's baseline: Neuro: alert and fully oriented, Motor: no deficits, Ambulation: walks without assistance, Speech: normal. 17:00 Patient reports since discharge from [facility] for influenza illness last week, has had cp continued weakness, decreased appetite. Reports new blood pressure medication started while in hospital. Historical: - Allergies: 16:52 No Known Allergies; jl7 - PMHx: 16:52 Diabetes mellitus; Hypertensive disorder; Atrial fibrillation; GERD; jl7 - Immunization history:: Client reports receiving the 2nd dose of the Covid vaccine. - Social history:: Smoking status: Patient denies any tobacco usage or history of. ROS: 17:05 Constitutional: Positive for poor PO intake, Negative for body aches, chills, fever. cp 17:05 Eyes: Negative for injury, pain, redness, and discharge. cp 17:05 ENT: Negative for drainage from ear(s), ear pain, sore throat, difficulty swallowing, difficulty handling secretions. 17:05 Cardiovascular: Negative for chest pain, edema, palpitations. 17:05 Respiratory: Negative for cough, shortness of breath, wheezing. 17:05 Abdomen/GI: Negative for abdominal pain, nausea, vomiting, and diarrhea. 17:05 Neuro: Positive for dizziness, weakness, Negative for altered mental status, syncope. cp 17:05 : Negative for urinary symptoms. cp 17:05 All other systems are negative. Exam: 17:10 CT study not indicated or reported. Reason for not performing CT: no focal deficits cp 17:10 Head/Face: Normocephalic, atraumatic. cp 17:10 Constitutional: The patient appears in no acute distress, alert, awake, non-diaphoretic, non-toxic, well developed, well nourished, obese. 17:10 Eyes: Periorbital structures: appear normal, Pupils: equal, round, and reactive to light and accomodation, Extraocular movements: intact throughout, Conjunctiva: normal, no exudate, no injection, Sclera: no appreciated abnormality, Lids and lashes: appear normal, bilaterally. 17:10 ENT: External ear(s): are unremarkable, Nose: is normal, Mouth: Lips: moist, Oral mucosa: pink and intact, moist, Posterior pharynx: Airway: no evidence of obstruction, patent, erythema, is not appreciated, exudate, is not appreciated. 17:10 Neck: ROM/movement: is normal, is supple, without pain, no range of motions limitations. 17:10 Chest/axilla: Inspection: normal. 17:10 Cardiovascular: Rate: normal, Rhythm: regular, Edema: is not appreciated, JVD: is not appreciated. 17:10 Respiratory: the patient does not display signs of respiratory distress, Respirations: normal, no use of accessory muscles, no retractions, labored breathing, is not present, Breath sounds: are clear throughout, no decreased breath sounds, no stridor, no wheezing. 17:10 Abdomen/GI: Inspection: obese Palpation: abdomen is soft and non-tender, in all quadrants. 17:10 Back: pain, is absent, ROM is normal. 17:10 Neuro: Orientation: to person, place \T\ time. Mentation: is normal, Cerebellar function: is grossly normal, Motor: moves all fours, general weakness with no focal deficits, Sensation: is normal. 17:13 ECG was reviewed by the Attending Physician. cp Vital Signs: 16:50 BP 116 / 67; Pulse 74; Resp 17; Temp 97; Pulse Ox 98% ; Weight 126.55 kg; Height 5 ft. jl7 10 in. (177.80 cm); Pain 0/10; 17:59 BP 107 / 48; Pulse 62; Resp 17; Pulse Ox 95% ; bp 18:15 BP 90 / 32; Pulse 64; Resp 18; Pulse Ox 95% ; bp 18:30 BP 92 / 34; Pulse 64; Resp 18; Pulse Ox 98% ; bp 18:45 BP 117 / 60; Pulse 63; Resp 14; Pulse Ox 96% ; bp 20:13 BP 99 / 47; Pulse 68; Resp 17 S; Pulse Ox 95% on R/A; as6 22:12 BP 115 / 63; Pulse 64; Resp 16 S; Pulse Ox 98% on R/A; as6 23:11 BP 134 / 68; Pulse 69; Resp 13 S; Pulse Ox 96% on R/A; as6 16:50 Body Mass Index 40.03 (126.55 kg, 177.80 cm) jl7 MDM: 17:00 Patient medically screened. cp 17:00 Differential diagnosis: metabolic disorder, dehydration, sepsis, volume depletion. cp 20:45 Data reviewed: vital signs, nurses notes, lab test result(s), EKG, radiologic studies, cp plain films. 20:45 Test interpretation: by ED physician or midlevel provider: ECG, plain radiologic cp studies. Counseling: I had a detailed discussion with the patient and/or guardian regarding: the historical points, exam findings, and any diagnostic results supporting the discharge/admit diagnosis, lab results, radiology results, the need for further work-up and treatment in the hospital. Response to treatment: the patient's symptoms have mildly improved after treatment. Physician consultation: Warren Luna MD was called at 20:40, was contacted at 20:40, regarding admission, to the telemetry unit. patient's condition. 01/15 16:56 Order name: Basic Metabolic Panel; Complete Time: 18:03 cp 01/15 18:03 Interpretation: Normal except: GLUC 158; BUN 30; CRE 1.55; GFR 48. cp 01/15 16:56 Order name: CBC with Diff; Complete Time: 17:52 cp 01/15 17:52 Interpretation: Normal except: RBC 4.30; HGB 12.8; HCT 38.5; PLT 479; BASO% 1.7. cp 01/15 16:56 Order name: LFT's; Complete Time: 18:03 cp 01/15 18:04 Interpretation: Normal except: GLOB 4.4; A/G 0.8. cp 01/15 16:56 Order name: Magnesium; Complete Time: 18:03 cp / 16:56 Order name: NT PRO-BNP; Complete Time: 18:03 cp 01/15 16:56 Order name: PT-INR; Complete Time: 17:52 cp 01/15 16:56 Order name: Troponin HS; Complete Time: 18:03 cp 01/15 18:04 Interpretation: Reviewed. cp / 18:18 Order name: Blood Culture Adult (2) cp 01/15 18:18 Order name: Lactate w/ 2H reflex if indic.; Complete Time: 19:48 cp / 19:48 Interpretation: Reviewed. cp / 18:18 Order name: Procalcitonin; Complete Time: 19:48 cp 01/15 19:48 Interpretation: Reviewed. cp 01/15 18:18 Order name: Urine Microscopic Only; Complete Time: 20:38 cp / 19:49 Order name: Urine Dipstick-Ancillary; Complete Time: 20:38 EDRI 01/15 20:47 Order name: SARS RAPID as6 01/15 20:51 Order name: Flu mw2 01/15 16:55 Order name: Orthostatics; Complete Time: 18:48 cp 01/15 16:56 Order name: XRAY Chest (1 view); Complete Time: 17:52 cp 01/15 16:56 Order name: EKG; Complete Time: 16:57 01/15 16:56 Order name: Cardiac monitoring; Complete Time: 17:44 01/15 16:56 Order name: EKG - Nurse/Tech; Complete Time: 17:44 01/15 16:56 Order name: IV Saline Lock; Complete Time: 17:44 01/15 21:24 Order name: COVID-19/FLU A+B as6 01/15 21:41 Order name: COVID-19/FLU A+B EDMS 01/15 22:04 Order name: Heart Healthy EDMS 01/15 22:04 Order name: Basic Metabolic Panel EDMS 01/15 22:04 Order name: Basic Metabolic Panel EDMS 01/15 22:04 Order name: CBC with Automated Diff EDMS 01/15 22:04 Order name: CBC with Automated Diff EDMS 01/15 16:56 Order name: Labs collected and sent; Complete Time: 17:44 01/15 16:56 Order name: O2 Per Protocol; Complete Time: 17:44 cp 12 16:56 Order name: O2 Sat Monitoring; Complete Time: 17:44 cp 01/15 18:18 Order name: Urine Dipstick-Ancillary (obtain specimen); Complete Time: 20:13 cp EC:13 Rate is 66 beats/min. Rhythm is regular. WV interval is normal. QRS interval is normal. cp QT interval is normal. Interpreted by me. Reviewed by me. Administered Medications: 18:00 Drug: NS 0.9% 1000 ml Route: IV; Rate: 1 bolus; Site: right forearm; bp 23:14 Follow up: Response: No adverse reaction; IV Status: Completed infusion; IV Intake: as6 1000ml 18:17 Not Given (Physician Discretion): NS 0.9% 500 ml IV at bolus once cp 18:17 Not Given (Physician Discretion): NS 0.9% 500 ml IV at 125 ml/hr continuous cp Disposition: 01/16 10:54 Co-signature as Attending Physician, Dano Jay MD I agree with the assessment and kdr plan of care. Disposition Summary: 01/15/22 20:46 Hospitalization Ordered Hospitalization Status: Observation cp Provider: Warren Luna cp Location: Telemetry/MedSurg (observation) cp Condition: Stable cp Problem: new cp Symptoms: are unchanged cp Bed/Room Type: Standard cp Room Assignment: 403(01/15/22 22:44) Diagnosis - Weakness cp - Hypotension, unspecified cp Forms: - Medication Reconciliation Form cp - SBAR form cp Signatures: Dispatcher [employer] Raven Ha RN RN mw Rittger, Kevin, MD MD kdr Page, Corey, PA PA cp Lora Smalls RN RN [email or web address] Wilbert Lepe RN RN Bernardo Livingston RN as6 Corrections: (The following items were deleted from the chart) 01/15 16:53 16:52 Home Meds: None; sophie jlKandice 22:44 20:46 cp mw
[2022-01-15] MEDS ORDERED: ONDANSETRON 4 MG/2 ML VIAL IV PRN (22:01)
[2022-01-15 22:37] LABS: SARS-COV-2 RT PCR NEGATIVE (NEGATIVE)
[2022-01-15] MEDS: NA CHLORIDE 0.9% 1,000 ML IV SCH (23:00)
[2022-01-16 00:01] VITALS: BMI 39.5
[2022-01-16] MEDS: MELATONIN 5 MG TABLET PO PRN ×2 (00:59→21:02)
[2022-01-16 04:32] LABS: Absolute Lymphocytes (CBC) 3.2 K/uL (0.7-4.9); Hematocrit 33.3 % (39.6-49.0); Lymphocytes % 34.6 % (15.3-44.8); MCV 89.2 fL (80-100); MPV 7.8 fL (7.6-11.3); RBC Red Blood Cell Count 3.74 M/uL (4.33-5.43)
[2022-01-16 04:53] LABS: Potassium 3.5 mmol/L (3.5-5.1)
[2022-01-16] MEDS ORDERED: GLUCAGON 1 MG/VIAL IM PRN (07:55)
[2022-01-16] MEDS ORDERED: D50W 25 GM/50 ML SYRINGE IV PRN (07:55)
[2022-01-16] MEDS ORDERED: PNEUMOCOCCAL VACCINE 0.5 ML IMVAC ONE (08:00)
[2022-01-16] MEDS ORDERED: INFLUENZA VACCINE (for 6+ mo) 0.5 ML DOSE IMVAC ONE (08:00)
[2022-01-16] MEDS ORDERED: D10W 125 ML IV PRN (08:02)
--- NOTE | 2022-01-16 08:37 | EKG ---
Test Date: 2022-01-15 Test Time: 17:06:35 Code Machine Operator: BP MEASUREMENT RESULTS: Intervals: Rate: 66 KS: 174 QRSD: 92 QT: 396 QTc: 415 [place]: P: 32 KS: 174 QRS: -19 T: 75 INTERPRETIVE STATEMENTS: Normal sinus rhythm Moderate voltage criteria for LVH, may be normal variant Cannot rule out Septal infarct, age undetermined Abnormal ECG Compared to ECG 09/23/2017 10:22:12 Left ventricular hypertrophy now present Myocardial infarct finding still present Electronically Signed On 01-16-22 08:34:41 [employer]PERVISOR [employer] by Gibran Reed
[2022-01-16] MEDS: INSULIN -REGULAR HUMAN 50 UNIT/0.5 ML ML SQ SCH ×3 (12:14→21:02)
[2022-01-16] MEDS: NA CHLORIDE 0.9% 1,000 ML IV SCH ×2 (12:15→22:47)
--- NOTE | 2022-01-16 19:04 | PN ---
Date of Progress Note: 01/16/2022 The patient states he feels much better today. He has been walking and no significant drops in blood pressure. However, his EKG does show subsequent changes from the one that was done in the office and he is scheduled to see Cardiology on Saturday. We will consult him now. His blood sugars were elevated, but not significantly. At present, he is eating and he is much more oriented and aler t. He has dehydration problem, which caused his admission in [place] last week and has now improved considerably. We will continue with IV fluids. Repeat blood work in the morning. Try to get an ec ho and then make a disposition. HR/MODL Voice ID: [id number] Report ID: [id number]
[2022-01-17] MEDS: NA CHLORIDE 0.9% 1,000 ML IV SCH ×3 (05:00→20:00)
[2022-01-17 06:14] LABS: Absolute Lymphocytes (CBC) 2.3 K/uL (0.7-4.9); Lymphocytes % 35.1 % (15.3-44.8); MPV 7.5 fL (7.6-11.3); RBC Red Blood Cell Count 3.67 M/uL (4.33-5.43)
[2022-01-17 06:32] LABS: Potassium 3.8 mmol/L (3.5-5.1)
[2022-01-17] MEDS ORDERED: POTASSIUM CL SA 10 MEQ TAB PO ONE (07:00)
[2022-01-17] MEDS: INSULIN -REGULAR HUMAN 50 UNIT/0.5 ML ML SQ SCH ×4 (07:30→20:30)
--- NOTE | 2022-01-17 19:07 | PN ---
Date of Progress Note: 01/17/2022 The patient continues to improve both clinically and symptomatically. His intake has improved. His dehydration is almost back to baseline. His creatinine has also improved. Awaiting results of the arpita martins, seen by Cardiology and has scheduled a stress test for Saturday as an outpatient. The patient's i nsulin requirements have dramatically changed since he has been admitted. We will instruct him on a sliding scale moderate in preparation for going home in the a.m. He has had not had any GI symptoms; however, the Protonix has been held as well and he should be ready to be discharged in the a.m. with changes in his above-outlined medication. We will add lisinopril if his blood pressure warrants it followed by the Coreg and holding nifedipine at the present as the third dose. HR/MODL Voice ID: [id number] Report ID: [id number]
[2022-01-17] MEDS: MELATONIN 5 MG TABLET PO PRN (20:28)
[2022-01-18] MEDS: NA CHLORIDE 0.9% 1,000 ML IV SCH (05:36)
[2022-01-18 06:28] LABS: Potassium 4.1 mmol/L (3.5-5.1)
--- NOTE | 2022-01-18 07:08 | ECHO ---
HEIGHT: 5 ft 10 in WEIGHT: 275 lb 9.6 oz DATE OF STUDY: 01/17/[address]: Warren Luna MD 2-DIMENSIONAL: YES M.MODE: YES DOPPLER: YES COLOR FLOW: YES TDS: PORTABLE: YES DEFINITY: BUBBLE STUDY: DIAGNOSIS: ABNORMAL ELECTROCARDIOGRAM CARDIAC HISTORY: CATHERIZATION: NO SURGERY: NO PROSTHETIC VALVE: NO PACEMAKER: NO MEASUREMENTS (cm) DIASTOLIC (NORMALS) SYSTOLIC (NORMALS) IVSd 1.1 (0.6-1.2) LA Diam 3.0 (1.9-4.0) LVEF 51% LVIDd 4.3 (3.5-5.7) LVIDs 3.2 (2.0-3.5) %FS 26% LVPWd 1.2 (0.6-1.2) Ao Diam 3.1 (2.0-3.7) 2 DIMENSIONAL ASSESSMENT: RIGHT ATRIUM: NORMAL LEFT ATRIUM: NORMAL RIGHT VENTRICLE: NORMAL LEFT VENTRICLE: NORMAL TRICUSPID VALVE: NORMAL MITRAL VALVE: NORMAL PULMONIC VALVE: NORMAL AORTIC VALVE: NORMAL PERICARDIAL EFFUSION: NONE AORTIC ROOT: NORMAL LEFT VENTRICULAR WALL MOTION: NORMAL DOPPLER/COLOR FLOW: NORMAL COMMENTS: 1. NORMAL 2-DIMENSIONAL ECHOCARDIOGRAM WITH DOPPLER. 2. NORMAL WALL MOTION 3. NO EFFUSION TECHNOLOGIST: YAZ SCHMIDT
[2022-01-18] MEDS: INSULIN -REGULAR HUMAN 50 UNIT/0.5 ML ML SQ SCH ×2 (07:30→12:18)
[2022-01-18 10:26] VITALS: O2SAT 95
[2022-01-18] MEDS ORDERED: cloNIDine HCL 0.1 MG TAB PO ONE (12:00)
[2022-01-18 12:07] VITALS: TEMP 97.2
[2022-01-18 13:53] VITALS: BP 166/82
--- NOTE | 2022-01-20 23:35 | CON ---
Date of Consultation: 01/17/2022 Reason For Consultation: Hypotension. History Of Present Illness: Mr. Vargas is 71. He has a history of diabetes, hypertension, atrial fib rillation, and gastroesophageal reflux disease. His atrial fibrillation is stable and he is in gibran l rhythm now. He takes Coreg, nifedipine, hydrochlorothiazide, Flomax, lisinopril, and Crestor. He came in with orthostatic hypotension. He is being hydrated and is feeling better. He denied chest p ain, nausea, vomiting, diaphoresis, PND, orthopnea, pedal edema, or palpitations. He complained of p resyncope. WV has been ruled out. Echocardiogram is normal. Past Medical History: As stated above. Allergies: NONE. Review of Systems: Negative. Social History: Negative. Family History: Negative. Medications: Listed earlier. Physical Examination: Vital Signs: Stable, afebrile. HEENT: Negative. Neck: Supple without any bruit, lymphadenopathy, JVD, or thyromegaly. Chest: Clear to auscultation and percussion. Cardiac: Regular rhythm and rate. No murmurs, gallops, or rubs. Abdomen: Benign. Extremities: No clubbing, cyanosis, or edema. Diagnostic Data: All within normal limits. Echocardiogram is normal. Impression And Plan: Hypotension secondary to orthostatic hypotension, polypharmacy, diabetes, atria l fibrillation, and gastroesophageal reflux disease; all those problems are stable. His echo was nor mal. His troponin is negative. BNP is negative. I think he should go home on Coreg, Crestor, and n ifedipine and I think he should hold his hydrochlorothiazide and Flomax. Continue lisinopril. I ruma l see him in the office in the next 2 weeks. MERLENE/KYAW Voice ID: [id number] Report ID: [id number]
== END 2022-01-18 14:52 | disposition home or self-care (01) | DRG 312 ==
LOC: ER 16:23 → ERHOLD 22:00 → 4TH 23:07 → OBSVTOIN 01-16 21:46
PROVIDERS: ADMIT Family Medicine; ATTEND Family Medicine
PROC: 5A09457 Assistance with Respiratory Ventilation, 24-96 Consecutive Hours, Continuous Positive Airway Pressure (ICD-10-PCS; principal; 2022-01-15)
DX: I95.1 Orthostatic hypotension (principal); E86.0 Dehydration; E11.9 Type 2 diabetes mellitus without complications; K21.9 Gastro-esophageal reflux disease without esophagitis; I10 Essential (primary) hypertension; I48.91 Unspecified atrial fibrillation; Z20.822 Contact with and (suspected) exposure to COVID-19
CPT/HCPCS: 0240U; 36415; 71045; 80048; 80076; 81003; 81015; 82947; 83605; 83735; 83880; 84145; 84484; 85025; 85610; 87040; 90732; 93005; 93306; 94660; 94760; 96360; 96361; 97116; 97161; 97530; 99284; G0378; J1815; J7030; Q2035

== ENCOUNTER 2022-02-21 09:48 | Inpatient (IN) | payer OTHER, BC ==
--- OUTSIDE RECORDS SUMMARY | 2022-02-21 09:52 | XMS REPORT | Continuity of Care Document ---
:1950 Author Organization [facility] t Address [address] [place] [address] Care Team Providers Name Role Phone Warren Luna Primary Care Physician JESSICA WILSON Attending Clinician Unavailable Elsa Zhou RN Attending Clinician Unavailable Marino Newman MD Attending Clinician Cristóbal Ochoa MD Attending Clinician CRISTÓBAL OCHOA Attending Clinician Unavailable NABEEL JOHNSON Attending Clinician Unavailable DWAIN VALDEZ Attending Clinician Unavailable TINA RAMIREZ Attending Clinician Unavailable Scar Fox Attending Clinician Sejal REFRIGERATING MACHINE OPERATOR-CNabeel Attending Clinician LEONARDO CARLOS Attending Clinician Unavailable Cristóbal Ochoa MD Admitting Clinician CRISTÓBAL OCHOA Admitting Clinician Unavailable Payers Payer Name Policy Type Policy Number Effective Date Expiration Date S ource MEDICARE-PART B 5 [id number] 2020 00:00:00 BCBS 2 [id number] 2020 00:00:00 Problems Condition Condition Condition Status Onset Resolution Last Treating Co mments Source Name Details Category Date Date Treatment Clinician Date Acute Acute Disease Active 2021-02 Univers cough cough - ity of 00:00: [address] Flu Flu Disease Active 2021-02 Univers 03-03 ity of 00:00: [address] Dyslipidem Dyslipidem Disease Active 2021-02 U preet ia ia 03-03 ity of 00:00: [place] 00 Medical Branch Uncontroll Uncontroll Disease Active 2021-02 U preet ed ed 03-03 ity of hypertensi hypertensi [...] level level 00:00: [place] 00 Medical Branch GERD GERD Disease Active April (gastroeso (gastroeso Se ybold phageal phageal reflux reflux disease) disease) Backache Backache Problem Resolve 2021-01-05 Memoria (finding) [...] 2021-01-05 Memoria (finding) (finding) 23:07:23 l Active [place] Problem 01/05/2021 [facility] 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 2 diabetes diabetes mellitus mellitus Hyperlipid Problem Active 2021-01-05 M emoria emia Hyperlipid 23:07:23 l (disorder) emia Endy n (disorder) Active Problem 01/05/2021 [facility] Peripheral Periphera Problem Active 2021-01-05 Memoria nerve l nerve 23:07:23 l disease disease Jacek (disorder) (disorder) Active Problem 01/05/2021 [facility] Syncope Syncope Problem Active 2021-01-05 Me moria (disorder) (disorder) 23:07:23 l Active Jacek Problem 01/05/2021 [facility] Insomnia Insomnia Disease Active Kelse y [place]bold Allergies, Adverse Reactions, Alerts Allergy Allergy Status Severity Reaction(s) Onset Inactive Treating Comm ents Source Name Type Date Date Clinician Penicill Propensi Active April ins ty to 6-16 Seybold adverse 00:00: reaction 00 s penicill penicill Active Memori a in in l [place] NO KNOWN Drug Active Univers ALLERGIE Class ity of S [facility] Social History Social Habit Start Date Stop Date Quantity Comments Source History of Passive smoker University of tobacco use [facility] Tobacco use and 2022-01-01 2022-01-01 Smokeless tobacco Un iversity of exposure 00:00:00 00:00:00 non-user [facility] Alcohol intake 2022-01-01 2022-01-01 Ex-drinker [facility] 00:00:00 00:00:00 (finding) [facility] Exposure to 2021-12-21 2021-12-31 Not sure [facility] SARS-CoV-2 00:00:00 23:58:00 [facility] (event) [place] Social History 2020-10-13 2020-10-13 [facility] 20:43:37 20:43:37 Sex Ass[birth year] At [birth year] Universit y of 00:00:00 00:00:00 [facility] Smoking Status Start Date Stop Date Source Never smoked tobacco [facility] Medications Ordered Filled Start Stop Current Ordering Indication Dosage Frequency Signature Comments Components Source Medication Medication Date Date Medication? Clinician (SIG) Name Name NIFEdipine 2021-02- Yes [id number] 60mg Take 1 Univers ER 60 mg 1-24 12-25 tablet by ity o f tablet 00:00: 05:59 mouth in [place] 00 :00 [facility] for 30 days. pantoprazol 2021-02- Yes [id number] 40mg Take 1 Univers e 40 mg EC 1-24 12-25 tablet by ity of tablet 00:00: 05:59 mouth in [place] 00 :00 the [facility] for 30 days. NIFEdipine 2021-02- Yes [id number] 60mg Take 1 Univers ER 60 mg 1-24 12-25 tablet by ity o f tablet 00:00: 05:59 mouth in [place] 00 :00 the [facility] for 30 days. pantoprazol 2021-02- Yes [id number] 40mg Take 1 Univers e 40 mg EC 1-24 12-25 tablet by ity of tablet 00:00: 05:59 mouth in [place] 00 :00 the Medical morning Branch for 30 days. levalbutero 2021-02- No .31mg 0.31 mg, Univers l (XOPENEX) 03-05 Inhalation i ty of nebulizer 18:30: 17:24 , [place]CE, 1 [place] solution [place] :00 dose, On Medical 0.31 mg Wed Branch 01/03/22 at 1230, Routine KCL 2021-02- No 40meq 40 mEq, Univers (KLOR-CON 03-05 Oral, ity of M20) tablet 16:30: 17:49 [place]CE, 1 [place] 40 mEq 00 :00 dose, On Medical Sat Branch 01/03/22 at 1030, Routine lisinopriL 2021-02 Yes 20mg Take 20 mg U nivers 20 mg 23 by mouth ity of tablet 13:44: in the [place] [address] morning. Medical Branch carvediloL 2021-02 Yes 25mg Take 25 mg U nivers 25 mg 23 by mouth ity of tablet 13:44: in the [place] [address] morning Medical and 25 mg Branch in the evening. Take with meals. rosuvastati 2021-02 Yes Take by Uni vers n 20 mg 23 mouth. ity of CpSP 13:44: [address] tamsulosin 2021-02 Yes Take by Univ ers 0.4 mg 24 23 mouth ity of hr capsule 13:44: daily. [place] [address] Medical F[place] insulin 2021-02 Yes 80U inject 80 Unive rs degludec - Units ity of (TRESIBA 13:44: [place] the [place] FLEXTOUCH 42 skin every Medi edwin U-100) 100 morning. Branc h unit/mL (3 mL) InPn pioglitazon 2021-02 Yes 15mg Take 15 mg Univers e (ACTOS) 23 by mouth ity of 15 mg 13:44: in the [facility] 42 morning. Medical Branch lisinopriL 2021-02 Yes 20mg Take 20 mg U nivers 20 mg -23 by mouth ity of tablet 13:44: in the [place] [address] morning. Medical Branch carvediloL 2021-02 Yes 25mg Take 25 mg U nivers 25 mg 1-23 by mouth ity of tablet 13:44: in the [place] 42 morning Medical and 25 mg Branch in the evening. Take with meals. rosuvastati 2021-02 Yes Take by Un susie n 20 mg 1-23 mouth. ity of CpSP 13:44: [address] Branch tamsulosin 2021-02 Yes Take by Univ ers 0.4 mg 24 1-23 mouth ity of hr capsule 13:44: daily. [address] Branch insulin 2021-02 Yes 80U inject 80 Unive rs degludec 1-23 Units ity of (TRESIBA 13:44: [place] FLEXTOUCH 42 skin every Medi edwin U-100) 100 morning. Branc h unit/mL (3 mL) InPn pioglitazon 2021-02 Yes 15mg Take 15 mg Univers e (ACTOS) 03-05 by mouth ity of 15 mg 13:44: in the [facility] 42 morning. Medical Branch benzonatate 2021-02- Yes [id number] 100mg Take 1 Univers 100 mg 03-05 capsule by ity of capsule 00:00: 05:59 mouth [place] 00 :00 every 8 Medical (eight) Branch hours for 7 days. benzonatate 2021-02- Yes [id number] 100mg Take 1 Univers 100 mg 03-05 capsule by ity of capsule 00:00: 05:59 mouth [place] 00 :00 every 8 Medical (eight) Branch hours for 7 days. oseltamivir 2021-02- Yes [id number] 75mg Take 1 Univers 75 mg 03-05 capsule by ity of capsule 00:00: 05:59 mouth in [place] 00 :00 the Medical morning Branch and 1 capsule in the evening. Do all this for 3 days. levalbutero 2021-02- No .31mg 0.31 mg, Univers l (XOPENEX) 03-04 Inhalation i ty of nebulizer 19:30: 20:02 , [place]CE, 1 [place] solution [place] :[place] dose, On Medical 0.31 mg Tue Branch 01/02/22 at 1330, Routine Sliding 2021-02 Yes Subcutaneo Univ ers Scale 1-22 us, TID ity of Insulin - 18:00: MEALS+HS, [place] Lispro 00 First dose Medical (HumaLOG) + (after Branch Fsbg last Testing modificati on) on Sat01/02/22 at 1200, Until Discontinu ed, Routine NIFEdipine 2021-02 Yes 60mg 60 mg, Unive rs ER tablet 03-04 Oral, ity of 60 mg 15:00: DAILY, [place] 00 First dose Medical on Sat01/02/22 at 0900, Until Discontinu ed, Routine docusate 2021-02 Yes 100mg 100 mg, Unive rs (COLACE) 03-04 Oral, ity of capsule 100 15:00: DAILY, [place] mg 00 First dose Medical on Sat01/02/22 at 0900, Until Discontinu ed, Routine NaCl [...] QHSPRN, [place] 34 Starting Medical on Sat01/01/22 at 2330, Until Discontinu ed, Routine, Insomnia benzonatate 2021-02 Yes 100mg 100 mg, Un susie (TESSALON 03-04 Oral, Q8H, ity of PERLES) 04:00: [place] capsule 100 00 on Sat Medica l mg 01/01/22 Branch at 2200, Until Discontinu ed, Routine lisinopriL 2021-02 Yes 20mg 20 mg, Unive rs (PRINIVIL,Z 03-04 Oral, BID, it y of ESTRIL) 02:00: First [place] tablet 20 00 (after Medical mg last Branch modificati on) on Sat01/01/22 at 2000, Until Discontinu ed, Routine oseltamivir 2021-02- Yes 75mg 75 mg, Uni vers (TAMIFLU) [...] 40 mg 00 First dose Medical on Mon Branch 01/01/22 at 1700, Until Discontinu ed, Routine pantoprazol 2021-02 Yes 40mg 40 mg, Univ ers e 03-03 Oral, ity of (PROTONIX) 18:15: DAILY, [place] EC tablet 00 First dose Medi edwin 40 mg (after Branch last modificati on) on Sat01/01/22 at 1215, Until Discontinu ed, Routine sulfur 2021-02 No [id number] 5mL 5 mL, [facility] ers hexafluorid 03-03 Intravenou i ty of e microsphr 16:15: 16:15 s, ONCE, 1 [place] (LUMASON) 00 :00 dose, On Medica l injection 5 Sat Branch mL 01/01/22 at 1015, Routine
swat team member approving Restricted medication : RAQUEL WAN tamsulosin 2021-02 Yes .4mg 0.4 mg, Univ ers (FLOMAX) 03-03 Oral, ity of capsule 0.4 15:00: DAILY, [place] mg 00 First dose Medical on Mon Branch 01/01/22 at 0900, Until Discontinu ed, Routine insulin 2021-02 Yes 40U 40 Units, Unive rs glargine 03-03 Subcutaneo ity o f (LANTUS 15:00: us, DAILY, [place] U-100) 00 First dose Medical injection on [facility] Branch 40 Units 01/01/22 at 0900, Until Discontinu ed, Routine azithromyci 2021-02 No 500mg 500 mg, U nivers n [...] hours lisinopriL 2021-02 No 20mg 20 mg, [facility] ers (PRINIVIL,Z 03-03 Oral, ity of ESTRIL) [...] at 0800, Until Discontinu ed, Routine cloNIDine 2021-02- No .2mg 0.2 mg, [facility] ers (CATAPRES) 03-03 Oral, ity of tablet 0.2 12:30: 11:49 ONCE, 1 [place] mg 00 :00 dose, On Medical Mon Branch 01/01/22 at 0630, Routine hydralAZINE 2021-02 Yes 10mg 10 mg, [facility] ers (APRESOLINE 03-03 Slow IV ity o [...] 250 mL, IV Un susie 10% (D10W) 1-21 Infusion, ity of bolus 08:51: PRN - [...] 46 Starting Medical injection 1 on Sat Branch mg 01/01/22 at 0251, Until Discontinu ed, [...] 03-03 Oral, ity of (TYLENOL) 08:50: Q6HPRN, [place] tablet 650 14 Starting Medic al mg [...] NOW, 1 [place] 00 :00 dose, On [facility] 01/01/22 at 0230, JERROD NaCl 0.9% 2021-02 No 500mL at 999 Univ ers (NS) bolus 03-03 mL/hr, 500 it y of infusion 07:45: 07:43 mL, IV [place] [facility] Branch dose, On Sat01/01/22 at 0145, STAT oseltamivir 2021-02 No 75mg 75 mg, Uni vers (TAMIFLU) 03-03 Oral, ONCE ity of capsule 75 07:45: 06:58 NOW, 1 [place] mg 00 :00 dose, On [facility] 01/01/22 at 0145, JERROD ibuprofen 2021-02 No 600mg 600 mg, Uni vers (IBU) 03-03 Oral, ity of tablet 600 06:15: 06:12 ONCE, 1 [place] mg 00 :00 dose, On [facility] 01/01/22 at 0015, JERROD Pyridostigm 2020-02 Yes 60 mg = 1 M emoria ine Johnson 0-14 tab, PO, l 60 MG Oral 20:19: BID, # 60 [place] Tablet 00 tab, 3 [Mestinon] Refill(s), Pharmacy: [facility] [place], 175.26, cm, 11/24/20 15:02:00 CDT, Height, 127.727, kg, 11/24/20 15:02:00 CDT, Weight Pyridostigm 2020-02 Yes 60 mg = 1 M emoria ine Johnson 0-14 tab, PO, l 60 MG Oral 20:19: BID, # 60 He r[place] Tablet 00 tab, 3 [Mestinon] Refill(s), Pharmacy: [facility] [place], 175.26, cm, 11/24/20 15:02:00 CDT, Height, 127.727, kg, 11/24/20 15:02:00 CDT, Weight Pyridostigm 2020-02 Yes 60 mg = 1 M emoria ine Johnson 0-14 tab, PO, l 60 MG Oral 20:19: BID, # 60 He rmann Tablet 00 tab, 3 [Mestinon] Refill(s), Pharmacy: [facility] [place], 175.26, cm, 11/24/20 15:02:00 CDT, Height, 127.727, kg, 11/24/20 15:02:00 CDT, Weight Aspirin 81 Yes 81mg Take 81 mg K elsey MG oral 9-20 by mouth Seybold Tablet 13:57: daily Delayed 01 Response Melatonin Yes 2{tbl} Take 2 Mer ey 10 MG oral 9-20 tablets by Sey bold Capsule 13:57: mouth 01 every night at bedtime Baclofen 10 Yes [id number] 10mg Take 1 April MG oral 9-20 tablet (10 Seybol d Tablet 00:00: mg total) 00 by mouth 3 times daily Meloxicam Yes [id number] 15mg Take 1 K elsey 15 MG oral 9-20 tablet (15 Sey bold Tablet 00:00: mg total) 00 by mouth daily Pantoprazol Yes [id number] 40mg Take 1 April e Sodium 40 9-20 tablet (40 Se ybold MG oral 00:00: mg total) Tablet 00 by mouth Delayed daily Response Insulin Pen Yes 1{box} 1 box by April Needle (Pen 10-19 does not Seyb old [place]) 00:00: apply 32G X 4 MM 00 route does not daily apply Misc Insulin Yes [id number] 48U Inject 48 K elsey Degludec 08 units into Seybo ld (Tresiba 00:00: the skin FlexTouch) 00 daily 100 UNIT/ML subcutaneou s Solution Pen-injecto r Adult Yes 81 mg, Memoria Aspirin 81 9-02 Daily, 0 l mg oral 21:24: Refill(s) Jayshree nn delayed 00 release tablet Adult Yes 81 mg, Memoria Aspirin 81 9-02 Daily, 0 l mg oral 21:24: Refill(s) Jayshree nn delayed 00 release tablet Adult 0 Yes 81 mg, Memoria Aspirin 81 9-02 Daily, 0 l mg oral 21:24: Refill(s) Jayshree nn delayed 00 release tablet Adult 0 Yes 81 mg, Memoria Aspirin 81 9-02 Daily, 0 l mg oral 21:24: Refill(s) Jayshree nn delayed 00 release tablet Melatonin 0 Yes Bedtime, 0 Me moria 9-02 Refill(s) l 21:03: Jacek Ibuprofen 0 Yes 0 Memoria 9-02 Refill(s) l 21:03: [place] Melatonin 0 Yes Bedtime, 0 Me moria 9-02 Refill(s) l 21:03: Jacek Ibuprofen 0 Yes 0 Memoria 9-02 Refill(s) l 21:03: Jacek 00 Melatonin 0 Yes Bedtime, 0 Me moria 9-02 Refill(s) l 21:03: [place] 00 Ibuprofen 0 Yes 0 Memoria 9-02 Refill(s) l 21:03: [place] 00 Melatonin 0 Yes Bedtime, 0 Me moria 9-02 Refill(s) l 21:03: Jacek Ibuprofen 0 Yes 0 Memoria 9-02 Refill(s) l 21:03: Jacek 00 3 ML Yes 0 Memoria insulin 9-02 Refill(s) l degludec 20:55: Jacek 100 UNT/ML 00 Pen Injector [Tresiba] 3 ML Yes 0 Memoria insulin 9-02 Refill(s) l degludec 20:55: Jacek 100 UNT/ML 00 Pen Injector [Tresiba] 3 ML Yes 0 Memoria insulin 9-02 Refill(s) l degludec 20:55: [place] 100 UNT/ML 00 Pen Injector [Tresiba] 3 ML Yes 0 Memoria insulin 9-02 Refill(s) l degludec 20:55: [place] 100 UNT/ML 00 Pen Injector [Tresiba] tamsulosin Yes 0.4 mg = 1 M emoria 0.4 mg oral 9-02 cap, PO, l capsule 20:54: Daily, # [...] tab, PO, l oral 20:54: Daily, # Jacek enteric 00 30 tab, 0 coated Refill(s) tablet rosuvastati Yes 40 mg = 1 M emoria n 40 mg 10-13 tab, PO, l oral tablet 20:54: Bedtime, # [place] 00 90 tab, 3 Refill(s) lisinopril Yes 40 mg = 1 Me moria 40 mg oral 10-13 tab, PO, l tablet 20:54: Daily, # [place] 00 30 tab, 0 Refill(s) venlafaxine Yes [...] tab, PO, l oral 20:54: Daily, # [place] enteric 00 30 tab, 0 coated Refill(s) [...] tab, PO, l oral 20:54: Daily, # Jacek enteric 00 30 tab, 0 coated Refill(s) tablet rosuvastati Yes 40 mg = 1 M emoria n 40 mg 10-13 tab, PO, l oral tablet 20:54: Bedtime, # [place] 00 90 tab, 3 Refill(s) lisinopril Yes [...] tab, PO, l oral 20:54: Daily, # [place] enteric 00 30 tab, 0 coated Refill(s) tablet rosuvastati Yes 40 mg = 1 M emoria n 40 mg 10-13 tab, PO, l oral tablet 20:54: Bedtime, # [place] 00 90 tab, 3 Refill(s) lisinopril Yes [...] mL, 3 Syringe Refill(s) [Victoza] Gabapentin Yes [id number] 100mg Take 1 April 100 MG oral [...] Hour mouth Sustained daily Release Liraglutide Yes [id number] 1.8mg Inject 1.8 April (Victoza) 6-17 mg into Seybold 18 MG/3ML 00:00: the skin subcutaneou 00 daily s Solution Pen-injecto r Pantoprazol 2020- No 40mg Take 1 Donny sey e Sodium 40 5-28 09-20 tablet (40 S eybold MG oral 00:00: 00:00 mg total) Tablet 00 :00 by mouth Delayed daily Response Carvedilol Yes TAKE ONE Cory lsey 25 MG oral 5-17 (1) Seybold [...] Name Name Covid-19 Vaccine 2020-06-06 Completed April zamorabomaciel (Moderna), Mrna-lnp, 00:00:00 Xander Protein, Pf, 100 Mcg/0.5ml,IM Covid-19 Vaccine 2020-05-09 Completed April bailey (Moderna), Mrna-lnp, 00:00:00 Xander Protein, Pf, 100 Mcg/0.5ml,IM Tdap- (Boostrix, 2015-12-09 Completed April bailey Adacel) 00:00:00 Vital Signs Vital Name Observation Time Observation Value Comments Source Respiratory rate 2022-01-03 17:25:00 16 /min [facility] saturation in 2022-01-03 17:25:00 92 /min [facility] Arterial blood by [facility] Pulse oximetry Branch Systolic blood 2022-01-03 17:17:00 97 mm[Hg] [facility] Diastolic blood 2022-01-03 17:17:00 55 mm[Hg] [facility] 2022-01-03 17:17:00 88 /min [facility] Body temperature 2022-01-03 17:17:00 36.83 Filomena [facility] Body weight 2022-01-03 11:27:00 134.99 kg [facility] BMI 2022-01-03 11:27:00 41.51 kg/m2 [facility] Body height 2022-01-01 05:55:00 180.3 cm [facility] Systolic blood 2020-10-31 18:54:00 148 mm[Hg] April Carpenter pressure Diastolic blood 2020-10-31 18:54:00 84 mm[Hg] Nathanael byrd [place]bold pressure Heart rate 2020-10-31 18:54:00 68 /min April Nicole noahbomaciel Body temperature 2020-10-31 18:54:00 35.56 Filomena Mer zamora ybold Respiratory rate 2020-10-31 18:54:00 14 /min Mer ey ybold Body height 2020-10-31 18:54:00 180.3 cm April Nicole lynn Body weight 2020-10-31 18:54:00 124.739 kg April Nicole noahbomaciel BMI 2020-10-31 18:54:00 38.35 kg/m2 April bailey Weight 2020-11-24 20:02:00 [facility] [place] BMI Calculated 2020-11-24 20:02:00 Deepthi han Jacek Systolic (mm Hg) 2020-11-24 20:02:00 Eliezer napoles Jacek Diastolic (mm Hg) 2020-11-24 20:02:00 Mem orial [place] Heart Rate 2020-11-24 20:02:00 Memorial Jacek Respitory Rate 2020-11-24 20:02:00 Deepthi han Jacek Height 2020-11-24 20:02:00 175.26 cm [facility] [place] Systolic (mm Hg) 2020-10-13 20:32:00 Eliezer patricial [place] Diastolic (mm Hg) 2020-10-13 20:32:00 William orial Jacek Height 2020-10-13 20:32:00 180.34 cm [facility] Jacek Weight 2020-10-13 20:32:00 [facility] Jacek BMI Calculated 2020-10-13 20:32:00 Deepthi Singletonann Procedures Procedure Date / Time Performing Clinician Source Performed POCT GLUCOSE (AUTOMATED) 2022-01-03 13:18:00 Cristóbal Ochoa [facility] BASIC METABOLIC PANEL 2022-01-03 10:02:00 Cristin Cerda [facility] (NA, K, CL, CO2, GLUCOSE, Medica l Branch BUN, CREATININE, CA) POCT GLUCOSE (AUTOMATED) 2022-01-03 02:47:00 Cristóbal Ochoa [facility] [place] [facility] POCT GLUCOSE (AUTOMATED) 2022-01-02 22:54:00 Cristóbal Ochoa [facility] [place] [facility] POCT GLUCOSE (AUTOMATED) 2022-01-02 17:53:00 Cristóbal Ochoa Uni [facility] [place] [facility] POCT GLUCOSE (AUTOMATED) 2022-01-02 14:06:00 Cristóbal Ochoa [facility] [place] [facility] CREATINE KINASE 2022-01-02 09:14:00 Nadine Che [facility] MAGNESIUM 2022-01-02 09:14:00 Behzad Seay [facility] BASIC METABOLIC PANEL 2022-01-02 09:14:00 Behzad Seay [facility] (NA, K, CL, CO2, GLUCOSE, Medica l Branch BUN, CREATININE, CA) LIPID PANEL ([id number])(TOTAL 2022-01-02 09:14:00 Cristóbal Ochoa [facility], HDL) N-TERMINAL PRO-BNP 2022-01-02 09:14[facility] ([facility]ATED) 2022-01-02 09:12:00 Cristóbal Ochoa [facility] POCT GLUCOSE (AUTOMATED) 2022-01-02 05:24:00 Don [facility] POCT GLUCOSE (AUTOMATED) 2022-01-02 01:54:00 [facility] 2022-01-01 22:48:00 Cristóbal Ochoa [facility] TROPONIN I 2022-01-01 18:04:00 [facility] ([facility]OMATED) 2022-01-01 17:58:00 Marino Newman [facility] TRANSTHORACIC ECHO (TTE) 2022-01-01 15:40:00 Behzad Seay [facility] COMPLETE W/ CONTRAST Medical [facility] POCT GLUCOSE (AUTOMATED) 2022-01-01 13:58:00 Marino Newman [facility] PHOSPHORUS 2022-01-01 09:01:00 Behzad Seay [facility] LACTIC ACID WHOLE BLOOD 2022-01-01 09:01:00 Behzad Seay [facility] URINALYSIS 2022-01-01 06:59:00 Marino Newman [facility] XR CHEST 1 VW 2022-01-01 06:19:00 Marino Newman [facility] LACTIC ACID WHOLE BLOOD 2022-01-01 06:12:00 Marino Newman [facility] BLOOD CULTURE SCREEN 2022-01-01 06:07:00 Marino Newman [facility] CK (CREATINE KINASE) + MB 2022-01-01 06:07:00 Marino Newman [facility] TROPONIN I 2022-01-01 06:07:00 Marino Newman [facility] COMP. METABOLIC PANEL 2022-01-01 06:07:00 Marino Newman [facility] ([id number]) [facility] CBC WITH DIFF 2022-01-01 06:07:00 Marino Newman [facility] GLYCOSYLATED HEMOGLOBIN 2022-01-01 06:07:00 Behzad Seay [facility] (A1C) [facility] RAPID INFLUENZA A/B 2022-01-01 06:07:00 Marino Newman [facility] COVID-19 (ID NOW RAPID 2022-01-01 06:07:00 Marino Newman [facility] TESTING) [facility] LAB ONLY COVID 2022-01-01 06:07:00 Marino Newman [facility] INTERPRETATION [facility] HB ECG ROUTINE & RHYTHM 2022-01-01 05:56:35 Marino Newman [facility] Knee arthroplasty [facility] Encounters Start End Encounter Admission Attending Care Care Encounter Source Date/Time Date/Time Type Type Clinicians Facility Department ID 2022-01-25 2022-01-[address] [facility] [id number] [place] 09:15:00 09:15:00 [id number] [facility] 2022-01-08 2022-01-08 Transition MIKE Zhou [id number] Univers 00:00:00 00:00:00 of Care Elsa SANCHEZ [id number] it y of KALEN [id number] Lizette leung [id number] [place] [address] Branch 2021-12-31 2022-01-03 Hospital Marino Newman [facility] [id number] [facility] 23:48:00 13:41:00 Encounter Cristóbal Ochoa [id number] [facility] [id number] [facility] [id number] [address] 2021-12-31 2022-01-03 Inpatient Ginette OCHOA [facility] JUAN ANTONIO [id number] Univers 23:48:00 13:41:00 CRISTÓBAL reyes [facility] 2021-04-27 2021-04-27 Outpatient APRIL JOHSNON [id number] April 00:00:00 00:00:00 NABEEL Seybol d 2021-01-09 2021-01-09 Outpatient APRIL VALDEZ [id number] April 00:00:00 00:00:00 DWAIN Seybol d 2021-01-04 2021-01-04 Outpatient TINA RAMIREZ [id number] April 00:00:00 00:00:00 Seybol d 2021-01-03 2021-01-03 Ambulatory nullFlavo MNA [id number] Memoria 20:15:00 20:15:00 Pre-Reg r Neurology 04 l Reeves Jacek 2021-01-03 2021-01-03 Ambulatory nullFlavo MNA [id number] Memoria 20:15:00 20:15:00 Pre-Reg r Neurology 04 l Roger Read 2021-01-03 2021-01-03 Outpatient MHIE MHIE [id number] Memoria 14:15:00 14:15:00 04 heather Read 2021-01-03 2021-01-03 Outpatient FILIBERTO Fox MHMISCHER [id number] 14:15:00 14:15:00 Scar 04 Thomas 2020-11-24 2020-11-25 Outpatient nullFlavo MNA [id number] Memoria 19:00:00 04:59:59 r Neurology 03 l Roger Read 2020-11-24 2020-11-25 Outpatient nullFlavo MNA [id number] Memoria 19:00:00 04:59:59 r Neurology 03 l Reeves Jacek 2020-11-24 2020-11-24 Outpatient UMA FoxSCHCHAPO MHMISCHER [id number] 14:00:00 23:59:59 Scar Renae Guzman 2020-11-24 2020-11-24 Outpatient MHIE MHIE [id number] Memoria 14:00:00 14:00:00 03 l Jacek 2020 2020-11-22 Outpatient nullFlavo MNA [id number] Memoria 20:00:00 04:59:59 r Neurology 02 l Roegr Diezann 2020 2020-11-22 Outpatient nullFlavo MNA [id number] Memoria 20:00:00 04:59:59 r Neurology 02 l Roger Diezann [address] [facility] [id number] 15:00:00 23:59:59 Scar Vale Guzman 2020 2020 Outpatient IE IE [id number] Memoria 15:00:00 15:00:00 02 l Jacek 2020-11-14 2020-11-14 Outpatient APRIL VALDEZ [id number] April 00:00:00 00:00:00 DWAIN france 2020-11-02 2020-11-02 Outpatient APRIL VALDEZ [id number] April 00:00:00 00:00:00 DWAIN france 2020-10-31 2020-10-31 Office Feroz Johnson [id number] April 13:47:35 14:17:35 Visit Nabeel Lopez [id number] [facility] [id number] 2020-10-13 2020-10-14 Outpatient nullFlavo MNA [id number] Memoria 20:30:00 04:59:59 r Neurology 01 l Reevesnany Diezann 2020-10-13 2020-10-14 Outpatient nullFlavo MNA [id number] Memoria 20:30:00 04:59:59 r Neurology 01 l Reevesnany Diezann 2020-10-13 2020-10-13 [facility] [id number] 15:30:00 23:59:59 Scar Zacarias Thomas 2020-10-13 2020-10-13 Outpatient IE IE [id number] Memoria 15:30:00 15:30:00 01 heather Read 2020-09-15 2020-09-15 Outpatient R TERRANCE, [facility] [id number] Univers 15:40:00 15:40:00 LEONARDO reyes [facility] Results Test Description Test Time Test Comments Results Result Comments Source POCT GLUCOSE (AUTOMATED) 2022-01-03 13:42:56 Test Item Value Reference Range Interpretation Comme nts POCT GLU (test code = 8394629335) 114 mg/dL 70-110 H Lab Interpretation (test code = 51889-6) [facility] 03:19:14 Test Item Value Reference Range Interpretation Comments POCT GLU (test code = 8737521151) 140 mg/dL 70-110 H Lab Interpretation (test code = Abnormal 84663-3) [facility]2022-01-02 23:59:28 Test Item Value Reference Range Interpretation Comments POCT GLU (test code = 5821177419) 155 mg/dL 70-110 H Lab Interpretation (test code = Abnormal 97306-1) [facility]2022-01-02 18:07:48 Test Item Value Reference Range Interpretation Comments POCT GLU (test code = 3461608870) 142 mg/dL 70-110 H Lab Interpretation (test code = Abnormal 47483-0) [facility]2022-01-02 14:18:05 Test Item Value Reference Range Interpretation Comments POCT GLU (test code = 4623567927) 104 mg/dL 70-110 Lab Interpretation (test code = Normal 39232-5) [facility] 14:00:11 Test Item Value Reference Range Interpretation Comments POCT GLU (test code = 0098988317) 96 mg/dL 70-110 Lab Interpretation (test code = Normal 62281-2) [facility]CREAT[facility] [id number] 13:50:45 Test Item Value Reference Range Interpretation Comments CK (test code = 8392467277) 7672 U/L 33-194 H Lab Interpretation (test code = Abnormal 19558-6) [facility]AL [id number] 11:20:18 Test Item Value Reference Range Interpretation Comments NT-proBNP (test code 482 pg/mL See_Comment H [Autom ated = 7935240796) message] The system which generated this result transmitted reference range : <=125. The reference range was not used to interpret this result as normal/abnormal . ALVARO (test code = ALVARO) Biotin has been reported to cause a negative bias, interpret results relative to patient's use of biotin. Lab Interpretation Abnormal (test code = 47233-7) [facility] HospitalLIP[facility] PANEL (52950)(TOTAL CHOLESTEROL, TRIGLYCERIDES, HDL)2022-01-02 11:16:40 Test Item Value Reference Range Interpretation Comments CHOL (test code = 140 mg/dL 120-200 7489382687) HDL (test code = 39 mg/dL See_Comment L [Automated message] 3498535207) The system [employer] generated this result transmit barbara reference range : >=40. The refer ence range was not u sed to interpret th is result as normal/abnormal . HDLC RATIO (test code = See_Comment [Au tomated message] 2022941063) The system [employer] generated this result transmit barbara reference range : <=5.0. The refe rence range was not u sed to interpret th is result as normal/abnormal . TRIG (test code = 195 mg/dL 30-170 H 0304425483) LDL CHOL (test code = 62 mg/dL See_Comment [Auto mated message] 87113-5) The system [employer] generated this result transmit barbara reference range : <=160. The refe rence range was not u sed to interpret th is result as normal/abnormal . VLDL (test code = 39 mg/dL 5-60 3965637438) Lab Interpretation (test Abnormal code = 79028-1) [facility] HospitalMagnesium [id number] 11:16:20 Test Item Value Reference Range Interpretation Comments MAGNESIUM (test code = 9933065971) 1.7 mg/dL 1.7-2.4 Lab Interpretation (test code = Normal 39283-7) [facility] Metabolic Panel (NA, K, CL, CO2, GLUCOSE, BUN, CREATININE, CA)2022-01-02 11:16:19 Test Item Value Reference Range Interpretation Comments NA (test code = 137 mmol/L 135-145 7525176471) K (test code = 3.1 mmol/L 3.5-5.0 L 7396711397) CL (test code = 104 mmol/L 98-108 3517867793) CO2 TOTAL (test code = 25 mmol/L 23-31 3095512319) AGAP (test code = 2-16 0625652178) BUN (test code = 16 mg/dL 7-23 4050005789) GLUCOSE (test code = 92 mg/dL 70-110 9247507606) CREATININE (test code = 1.00 mg/dL 0.60-1.25 8487356565) CALCIUM (test code = 8.7 mg/dL 8.6-10.6 4072500058) eGFR (test code = mL/min/1.73m2 1313692621) ALVARO (test code = ALVARO) Association of [...] tests). Lab Interpretation Abnormal (test code = 61583-2) [facility] GLUCOSE (AUTOMATED)2022-01-02 05:29:09 Test Item Value Reference Range Interpretation Comments POCT GLU (test code = 2756133853) 103 mg/dL 70-110 Lab Interpretation (test code = Normal 18956-6) [facility] GLUCOSE (AUTOMATED)2022-01-02 02:17:17 Test Item Value Reference Range Interpretation Comments POCT GLU (test code = 7825919372) 177 mg/dL 70-110 H Lab Interpretation (test code = Abnormal 81052-4) [facility] GLUCOSE (AUTOMATED)2022-01-01 22:55:39 Test Item Value Reference Range Interpretation Comments POCT GLU (test code = 7625506036) 134 mg/dL 70-110 H Lab Interpretation (test code = Abnormal 42077-8) [facility] (TTE)2022-01-01 22:52:33 Test Item Value Reference Range Interpretation Comments Height (test code = in 7434280975) Weight (test code = lbs 0219949362) Systolic BP (test code = mmHg 9314200468) Diastolic BP (test code mmHg = 7265100808) Heart Rate (test code = bpm 0424996073) BSA (test code = 2.46 m2 2567559343) Ao root diam (test code 3.50 cm = 7696715926) Aortic root (test code = 3.5 cm 4518301715) Ao root annulus (test 3.5 cm code = 9011106155) LVOT diameter (test code 1.85 cm = 1393543062) LVOT area (test code = 2.70 cm2 4612501840) LAV(MOD-sp4) (test code 49.30 mL = 9720234900) E wave decelartion time 0.25 s (test code = 3034518154) MV Peak E Thanh (test code 71.0 cm/s = 2764263877) MV stenosis pressure 1/2 76.1 ms time (test code = 0652987628) MV Peak A Thanh (test code 74.4 cm/s = 7031819934) E/A ratio (test code = ratio 8733886640) MV Prop V (test code = 54.30 cm/s 7417981931) MV E/e' septal (test 8.7 cm/s code = 0849124229) Tapse (test code = 2.5 cm 1085239624) LVOT stroke volume (test 74.10 cm3 code = 5497034353) LVOT peak thanh (test code 125.7 cm/s = 3681031211) LVOT mn grad (test code mmHg = 5965646104) AV LVOT peak gradient mmHg (test code = 0452135457) LVOT peak VTI (test code 27.4 cm = 9450858370) LV V1 mean (test code = 101.30 cm/s 7527248736) Aortic valve mean 100.3 cm/s velocity (test code = 7505868327) Ao peak thanh (test code = 132.3 cm/s 7614972599) Ao VTI (test code = 24.7 cm 5346810497) AV area by cont VTI 3.0 cm2 (test code = 4223614403) AV area peak thanh (test 2.6 cm2 code = 2152652435) Ao max PG (test code = 7.00 mm[Hg] 8153496808) AV peak gradient (test mmHg code = 6254836454) AV valve area (test code 3.00 cm2 = 1467269118) AV mean gradient (test mmHg code = 3649623169) LVIDD (test code = 3.80 cm 1669408517) Left Ventricular End 63.0 mL Diastolic Volume by Teichholz Method (test code = 0903795) IVS (test code = 1.56 cm 7328477057) Interventricular Septum 1.56 cm Diastolic Thickness by 2D (test code = 1687351) LVPWD (test code = 1.56 cm 2066699820) PW (test code = 1.56 cm 0.6-1.7 1206491817) EF(Teich) (test code = 55.20 % 1584690227) LVIDS (test code = 2.70 cm 2143656858) Left Ventricular End 28.2 mL Systolic Volume by Teichholz Method (test code = 4308510) FS (test code = 28 % 0073135381) EF - 2D (test code = 55.20 % 81019879) Radiology Study observation (narrative) (test code = 92364-0) ALVARO (test code = ALVARO) ?Left?Ventricle: Left [...] mL of Lumason ultrasound enhancing agent used. [facility] GLUCOSE (AUTOMATED)2022-01-01 18:09:07 Test Item Value Reference Range Interpretation Comments POCT GLU (test code = 0910551500) 153 mg/dL 70-110 H Lab Interpretation (test code = Abnormal 88350-0) [facility] GLUCOSE (AUTOMATED)2022-01-01 14:18:07 Test Item Value Reference Range Interpretation Comments POCT GLU (test code = 2960469109) 199 mg/dL 70-110 H Lab Interpretation (test code = Abnormal 15844-7) [facility] Hospital[facility]osph[facility] [id number] 10:37:16 Test Item Value Reference Range Interpretation Comments PHOSPHORUS (test code = 6064373916) 2.6 mg/dL 2.5-5.0 Lab Interpretation (test code = Normal 50018-0) [facility]"
[2022-02-21 10:42] LABS: Absolute Lymphocytes (CBC) 1.8 K/uL (0.7-4.9); Hematocrit 38.6 % (39.6-49.0); Lymphocytes % 30.7 % (15.3-44.8); MCV 89.2 fL (80-100); MPV 7.6 fL (7.6-11.3); RBC Red Blood Cell Count 4.32 M/uL (4.33-5.43)
[2022-02-21] MEDS ORDERED: NA CHLORIDE 0.9% 1,000 ML ONE ×2 (10:47→14:25)
[2022-02-21 10:50] LABS: Urine Blood Negative (Negative); Urine Glucose Negative (Negative); Urine Protein Trace (Negative); Urine Specific Gravity 1.025 (1.005-1.030); Urine pH 5.5 (5.0-7.0)
[2022-02-21 10:59] LABS: Urine Bacteria None Seen /HPF (<20); Urine RBC <5 /HPF (None Seen)
[2022-02-21 11:00] LABS: Albumin 3.7 g/dL (3.4-5.0); Bilirubin Total 0.3 mg/dL (0.2-1.0); Potassium 4.1 mmol/L (3.5-5.1); Protein, Total 7.7 g/dL (6.4-8.2)
--- NOTE | 2022-02-21 11:32 | ER ---
Nurse's Notes [facility] Name: César Vargas Age: 71 yrs Sex: Male : 1950 Arrival Date: 02/21/2022 Time: 09:58 Bed 27 Private MD: Warren Luna Diagnosis: Acute kidney failure, unspecified Presentation: 02/21 10:00 Chief complaint: Patient states: "I saw Dr. Luna yesterday and today I got a call aa5 saying that I needed to come to the ER because my kidney function is not normal". Pt reports was recently admitted for dehydration. 10:00 Coronavirus screen: At this time, the client does not indicate any symptoms associated aa5 with coronavirus-19. Ebola Screen: Patient denies travel to an Ebola-affected area in the 21 days before illness onset. Initial Sepsis Screen: Does the patient meet any 2 criteria? HR > 90 bpm. Does the patient have a suspected source of infection? No. Patient's initial sepsis screen is negative. Risk Assessment: Do you want to hurt yourself or someone else? Patient reports no desire to harm self or others. Onset of symptoms was February 2022. 10:00 Acuity: JOSELINE 3 aa5 10:00 Method Of Arrival: Ambulatory aa5 Historical: - Allergies: 10:05 escitalopram; aa5 10:05 PENICILLINS; aa5 - PMHx: 10:05 Atrial fibrillation; diabetes mellitus; GERD; Hypertensive disorder; Sleep apnea; aa5 - PSHx: 10:05 None; aa5 - Immunization history:: Adult Immunizations unknown. - Social history:: Smoking status: Patient denies any tobacco usage or history of. Screenin:29 [facility] ED Fall Risk Assessment (Adult) History of falling in the last 3 months, ph including since admission Yes- single mechanical fall (1 pt) Confusion or Disorientation No (0 pts) Intoxicated or Sedated No (0 pts) Impaired Gait Yes (1 pt) Mobility Assist Device Used Yes (1 pt) Altered Elimination No (0 pt) Score/Fall Risk Level 3 or more points = High Risk Oriented to surroundings, Maintained a safe environment, Hourly rounding (assess needs \\T\\ fall precautionary measures) done, Used ambulatory aids as needed (educated on \\T\\ assisted with), Remained w/in arm's length of patient and in sight while toileting, Remained with patient while ambulating. Abuse screen: Denies threats or abuse. Denies injuries from another. Nutritional screening: No deficits noted. Tuberculosis screening: No symptoms or risk factors identified. Assessment: 15:30 General: Appears in no apparent distress. comfortable, Behavior is calm, cooperative, ph appropriate for age, Denies fever, feeling ill. Pain: Complains of pain in anterior aspect of left shoulder. Neuro: Level of Consciousness is awake, alert, obeys commands, Oriented to person, place, time, situation. Cardiovascular: Capillary refill < 3 seconds in bilateral fingers Patient's skin is warm and dry. Rhythm is sinus rhythm. Respiratory: Airway is patent Respiratory effort is even, unlabored. : Reports burning with urination. Derm: Skin is healthy with good turgor, Skin is. Musculoskeletal: Circulation, motion, and sensation intact. Range of motion: intact in all extremities. 19:35 Reassessment: Patient is alert, oriented x 3, equal unlabored respirations, skin jj7 warm/dry/pink. ASSUMED CARE OF PT. PT SITTING IN BED. NO DISTRESS. AT BEDSIDE. NO NEEDS AT THIS TIME. CALL BALLESTEROS IN REACH. 21:06 Reassessment: report called to Nava PIERSON for room 205. bb 21:19 Reassessment: PT LEAVING ER. jj7 Vital Signs: 10:00 BP 147 / 83; Pulse 104; Resp 20 S; Temp 98.4(O); Pulse Ox 97% on R/A; Weight 121.56 kg aa5 (R); Height 5 ft. 10 in. (177.80 cm) (R); 16:30 BP 152 / 87; Pulse 98; Resp 18; Pulse Ox 98% on R/A; ph 17:30 BP 139 / 79; Pulse 102; Resp 20; Pulse Ox 97% on R/A; ph 18:30 BP 147 / 89; Pulse 91; Resp 18; Pulse Ox 98% on R/A; ph 19:30 BP 141 / 75; Pulse 88; Resp 17; Pulse Ox 97% ; jj7 20:30 BP 158 / 98; Pulse 82; Resp 20; Pulse Ox 99% ; jj7 10:00 Body Mass Index 38.45 (121.56 kg, 177.80 cm) aa5 ED Course: 09:58 Patient arrived in ED. am2 09:59 Warren Luna MD is Private Physician. am2 10:03 Arm band placed on. aa5 10:05 Triage completed. aa5 10:09 Zoey Lopez F[facility]-C [facility]. kb 10:09 Cydney Castle MD is Attending Physician. kb 10:38 CBC with Diff Sent. bc6 10:39 CMP Sent. bc6 10:39 Lipase Sent. bc6 10:39 Initial lab(s) drawn, by me, sent to lab. Inserted saline lock: 20 gauge in left bc6 antecubital area, using aseptic technique. 11:31 Gab Ureña is Hospitalizing Provider. kb 11:42 Troponin High Sensitivity Sent. jh5 11:44 EKG done, by ED staff, reviewed by Zoey WINTERS. em1 11:56 CT Head Brain wo Cont In Process Unspecified. EDMS 12:25 Chest Single View XRAY In Process Unspecified. EDMS 14:50 Jyothi Desouza RN is Primary Nurse. ph 19:30 Patient has correct armband on for positive identification. Placed in gown. Bed in low ph position. Call light in reach. Side rails up X2. Client placed on continuous cardiac and pulse oximetry monitoring. NIBP monitoring applied. 19:33 No provider procedures requiring assistance completed. Patient admitted, IV remains in ph place. 19:46 Primary Nurse role handed off by Jyothi Desouza RN Administered Medications: 10:51 Drug: NS 0.9% 1000 ml Route: IV; Rate: 1 bolus; Site: left antecubital; [facility] Medication: 19:30 VIS not applicable for this client. ph Outcome: 11:31 Decision to Hospitalize by Provider. kb 19:33 Admitted to ER Hold. [facility]. ph 19:33 Condition: stable 19:33 Instructed on the need for admit. 21:24 Patient left the ED. jj7 Signatures: Dispatcher [employer] EDMS Zoey Lopez FNP-C FNP-Ckb Ballard, Brenda RN Cal Hart em1 Ramila Velasquez RN DANGELO 5 Jyothi Desouza RN RN ph Moreno, Amanda am2 Suma Nguyen Jessica, RN RN 5 Alan Mason RN RN jj7 Paige Guthrie 6 Corrections: (The following items were deleted from the chart) 10:06 10:05 Allergies: No Known Allergies; aa5 aa5
--- NOTE | 2022-02-21 11:32 | EDPHYS ---
Physician Documentation [facility] Name: César Vargas Age: 71 yrs Sex: Male : 1950 Arrival Date: 02/21/2022 Time: 09:58 Bed 27 Private MD: Warren Luna ED Physician Cydney Castle HPI: 02/21 11:50 This 71 yrs old Male presents to ER via Ambulatory with complaints of Abnormal Lab kb Results, Urinary Problem. 11:50 The patient presents with dizziness, feeling off balance. Onset: The symptoms/episode kb began/occurred 3 month(s) ago. Context: occurred at home. Modifying factors: The symptoms are alleviated by nothing, the symptoms are aggravated by nothing. Associated signs and symptoms: The patient has no apparent associated signs or symptoms. Severity of symptoms: At their worst the symptoms were moderate in the emergency department the symptoms have resolved. The patient has not experienced similar symptoms in the past. The patient has been recently seen by a physician: the patient's primary care provider, yesterday. Patient reports intermittent dizziness since just before . Fell when dizziness started and hit head, was unable to get off the floor and called EMS. EMS took him to [facility] at that time, patient was admitted for dehydration. Had another episode in January, EMS brought him to this facility and he was admitted for another 5 days for dehydration. States he has been going to Dr. Luna trying to figure out what is causing the dizziness, had labs done yesterday and Dr. Luna called him this morning told him to come to the ER for elevated creatinine.. Historical: - Allergies: 10:05 escitalopram; aa5 10:05 PENICILLINS; aa5 - PMHx: 10:05 Atrial fibrillation; diabetes mellitus; GERD; Hypertensive disorder; Sleep apnea; aa5 - PSHx: 10:05 None; aa5 - Immunization history:: Adult Immunizations unknown. - Social history:: Smoking status: Patient denies any tobacco usage or history of. ROS: 11:50 Constitutional: Negative for fever, chills, and weight loss. kb 11:50 Neuro: Positive for dizziness. 11:50 All other systems are negative. Exam: 11:50 Constitutional: This is a well developed, well nourished patient who is awake, alert, kb and in no acute distress. Head/Face: Normocephalic, atraumatic. Eyes: Pupils equal round and reactive to light, extra-ocular motions intact. Lids and lashes normal. Conjunctiva and sclera are non-icteric and not injected. Cornea within normal limits. Periorbital areas with no swelling, redness, or edema. ENT: Moist Mucous membranes Cardiovascular: Regular rate and rhythm with a normal S1 and S2. No gallops, murmurs, or rubs. No pulse deficits. Respiratory: Respirations even and unlabored. No increased work of breathing. Talking in full sentences Abdomen/GI: Soft, non-tender. No distention Skin: Warm, dry with normal turgor. Normal color. MS/ Extremity: Pulses equal, no cyanosis. Neurovascular intact. Full, normal range of motion. Neuro: Awake and alert, GCS 15, oriented to person, place, time, and situation. Moves all extremities. Normal gait. 13:56 ECG was reviewed by the Attending Physician. Vital Signs: 10:00 BP 147 / 83; Pulse 104; Resp 20 S; Temp 98.4(O); Pulse Ox 97% on R/A; Weight 121.56 kg aa5 (R); Height 5 ft. 10 in. (177.80 cm) (R); 16:30 BP 152 / 87; Pulse 98; Resp 18; Pulse Ox 98% on R/A; ph 17:30 BP 139 / 79; Pulse 102; Resp 20; Pulse Ox 97% on R/A; ph 18:30 BP 147 / 89; Pulse 91; Resp 18; Pulse Ox 98% on R/A; ph 19:30 BP 141 / 75; Pulse 88; Resp 17; Pulse Ox 97% ; jj7 20:30 BP 158 / 98; Pulse 82; Resp 20; Pulse Ox 99% ; jj7 10:00 Body Mass Index 38.45 (121.56 kg, 177.80 cm) aa5 MDM: 10:33 Patient medically screened. kb 11:47 Data reviewed: vital signs, nurses notes. kb 11:47 Differential diagnosis: cardiac arrhythmia, generalized weakness, hypovolemia, kb idiopathic dizziness, near-syncope, vertigo. Consideration of Admission/Observation Patient was admitted/placed on observation. Management of patient was discussed with the following: Hospitalist: Diaz accepts admission under Dr Ureña. Primary Care Provider: Discussed case with Dr Luna who wants pt admitted under hospitalist. Historians other than the Patient: Spouse/Significant Other: . External Records Reviewed: Inpatient record: Previous labs reviewed. Outpatient labs: outpatient creatinine yesterday 2.14. Counseling: I had a detailed discussion with the patient and/or guardian regarding: the historical points, exam findings, and any diagnostic results supporting the discharge/admit diagnosis, lab results, the need for further work-up and treatment in the hospital. 11:49 ED course: Pt now reports slight pain under left breast. EKG, chest x-ray ordered. kb 11:49 ED course: Pt has not had CT head since fall and dizziness began in December. . kb 02/21 10:14 Order name: CBC with Diff; Complete Time: 10:44 kb 02/21 10:14 Order name: CMP; Complete Time: 11:01 kb 02/21 10:14 Order name: Lipase; Complete Time: 11:01 kb 02/21 10:14 Order name: Urine Microscopic Only; Complete Time: 11:00 kb 02/21 10:51 Order name: Urine Dipstick-Ancillary; Complete Time: 10:52 EDMS 02/21 11:12 Order name: SARS RAPID; Complete Time: 11:43 kb 02/21 11:30 Order name: CT Head Brain wo Cont; Complete Time: 12:03 kb 02/21 11:30 Order name: Chest Single View XRAY; Complete Time: 12:36 kb 02/21 11:30 Order name: Troponin High Sensitivity; Complete Time: 12:15 kb 02/21 12:32 Order name: Carotid Artery Bilateral; Complete Time: 13:50 EDMS 02/21 13:56 Order name: Glucose, Ancillary Testing; Complete Time: 13:57 EDMS 02/21 15:23 Order name: NT PRO-BNP; Complete Time: 15:30 EDMS 02/21 16:14 Order name: Glucose, Ancillary Testing; Complete Time: 16:15 EDMS 02/21 17:42 Order name: US; Complete Time: 17:49 EDMS 02/21 10:14 Order name: IV Saline Lock; Complete Time: 10:38 kb 02/21 10:14 Order name: Labs collected and sent; Complete Time: 10:38 kb 02/21 10:14 Order name: Urine Dipstick-Ancillary (obtain specimen); Complete Time: 10:51 kb 02/21 10:44 Order name: Bladder Scanner: PVR; Complete Time: 11:23 kb 02/21 11:30 Order name: EKG; Complete Time: 11:31 kb 02/21 11:30 Order name: EKG - Nurse/Tech; Complete Time: 11:42 kb 02/21 13:23 Order name: EKG; Complete Time: 13:24 kb 02/21 13:23 Order name: EKG - Nurse/Tech; Complete Time: 14:03 kb 02/21 17:44 Order name: US; Complete Time: 17:49 EDMS EC:56 Rate is 84 beats/min. Rhythm is regular. QRS Crowder is Normal. MA interval is normal at kb 180 msec. QRS interval is normal at 96 msec. QT interval is normal at 449 msec. Administered Medications: 10:51 Drug: NS 0.9% 1000 ml Route: IV; Rate: 1 bolus; Site: left antecubital; 5 Disposition Summary: 02/21/22 11:31 Hospitalization Ordered Hospitalization Status: Inpatient Admission kb Provider: Gab Ureña Condition: Stable kb Problem: new kb Symptoms: are unchanged kb Bed/Room Type: Standard kb Location: Telemetry/MedSurg (Inpatient)(02/21/22 20:05) Room Assignment: [facility](02/21/22 20:05) Diagnosis - Acute kidney failure, unspecified kb Forms: - Medication Reconciliation Form kb - SBAR form kb Signatures: Dispatcher [employer] EDNH Zoey Lopez FNP-C FNP-Ckb Calderon, Audri RN RN aa5 Martha Rabago RN RN ss Garcia, Cindy, RN RN Jen Greer RN RN 5 Corrections: (The following items were deleted from the chart) 10:06 10:05 Allergies: No Known Allergies; aa5 aa5 18:42 11:31 Telemetry/MedSurg (Inpatient) kb ss 18:42 11:31 kb ss 20:05 18:42 [facility] ER HOLD ss cg 20:05 18:42 ERHOLD- ss cg
[2022-02-21 11:40] LABS: SARS-CoV-2 Antigen Rapid Res Negative (Negative)
--- NOTE | 2022-02-21 12:02 | RAD REPORT ---
EXAM DESCRIPTION: CT - Head Brain Wo Cont - 02/21/2022 11:54 am CLINICAL HISTORY: dizziness Headache, drowsiness COMPARISON: No comparisons TECHNIQUE: All CT scans are performed using dose optimization technique as appropriate and may inclu de automated exposure control or mA/KV adjustment according to patient size. FINDINGS: No intracranial hemorrhage, hydrocephalus or extra-axial fluid collection.Mild generalized brain atrophy.No areas of brain edema or evidence of midline shift. The paranasal sinuses and mastoids are clear. The calvarium is intact. IMPRESSION: No acute intracranial abnormality.
[2022-02-21] MEDS ORDERED: ACETAMINOPHEN 325 MG TABLET PO PRN (12:20)
[2022-02-21] MEDS ORDERED: LORAZEPAM 1 MG TABLET PO PRN (12:20)
[2022-02-21] MEDS ORDERED: HYDROCODONE/APAP 5/325 MG TAB PO PRN (12:20)
--- NOTE | 2022-02-21 12:32 | RAD REPORT ---
EXAM DESCRIPTION: RAD - Chest Single View - 02/21/2022 12:23 pm CLINICAL HISTORY: PAIN Chest pain. COMPARISON: Chest Single View dated 01/15/2022; Chest Pa And Lat (2 Views) dated 11/01/2020; CHEST PA AND LAT 2 VIEW dated 12/20/2011; CHEST PA AND LAT 2 VIEW dated 10/20/2007 FINDINGS: Portable technique limits examination quality. The lungs are grossly clear. The heart is upper limit of normal in size. No displaced fractures. IMPRESSION: No acute intrathoracic process suspected.
[2022-02-21] MEDS ORDERED: ONDANSETRON 4 MG/2 ML VIAL IV PRN (12:36)
[2022-02-21] MEDS ORDERED: LABETALOL 20 MG/4ML SYRINGE IV PRN (12:53)
[2022-02-21] MEDS ORDERED: TAMSULOSIN 0.4 MG SR CAP PO SCH (13:00)
--- NOTE | 2022-02-21 13:42 | RAD REPORT ---
EXAM DESCRIPTION: - CP - 02/21/2022 1:17 pm CLINICAL HISTORY: Afib, syncope COMPARISON: No comparisons TECHNIQUE: Real-time sonographic evaluation of both carotid systems was performed. Doppler interroga tion was performed with waveform tracing bilaterally. FINDINGS: Normal high resistance waveforms are noted in both external carotid arteries. The common c arotid arteries and internal carotid arteries show normal low resistance waveforms. Hard plaque is present at both carotid bulbs. Peak systolic and end diastolic velocity values and the ICA/CCA ratios are in the non-hemodynamically significant range. Antegrade flow seen in both vertebral arteries. IMPRESSION: Mild hard plaque at the bilateral carotid bulbs. No evidence of a hemodynamically significant stenosis.
[2022-02-21] MEDS: BENZONATATE 100 MG CAP PO SCH ×2 (14:00→21:00)
[2022-02-21] MEDS ORDERED: LABETALOL 20 MG/4ML SYRINGE IV ONE (14:11)
[2022-02-21] MEDS ORDERED: KETOROLAC 30 MG/ML INJ ONE (14:25)
[2022-02-21] MEDS ORDERED: MORPHINE 4 MG/ML SYR ONE (14:25)
--- NOTE | 2022-02-21 14:46 | P.HP ---
Certification for Inpatient Patient admitted to: Inpatient With expected LOS: >2 Midnights Patient will require the following post-hospital care: None Practitioner: I am a practitioner with admitting privileges, knowledge of patient current condition, hospital course, and medical plan of care. Services: Services provided to patient in accordance with Admission requirements found in Title 42 Section 412.3 of the Code of Federal Regulations Patient History Date of Service: 02/21/22 Reason for admission: Abnormal labs. History of Present Illness: Patient is a 71-year-old male with a past medical history significant for A. fib, DM 2, GERD, hyperlipidemia, sleep apnea who presents with complaint of abnormal labs and dizziness. Patient reported that he has been suffering episodes of dizziness for the past couple of months and around , Patient experienced a syncopal episode. Patient reported persistent episode of dizziness whenever he changes position. Patient reported that he followed up with his PCP and had lab work done yesterday. Patient was called by his PCP for abnormal labs--poor kidney functions. Patient reported associated signs and symptoms of shortness of breath with exertion, diaphoresis and nausea. Patient reported that he has also had episodes of hypotension and difficulty urinating. Patient denies any other signs or symptoms. Symptoms are aggravated or relieved by nothing. Patient decided to present to the hospital as directed by his PCP. Allergies Penicillins Allergy (Verified 06/30/14 11:26) Rash Home Medications: Benzonatate [Tessalon Perle] 100 mg PO TID 01/16/22 Carvedilol [Coreg] 25 mg PO DAILY 01/16/22 LORazepam [Lorazepam] 1 mg PO Q6H PRN 01/16/22 Nifedipine [Nifedipine ER] 60 mg PO DAILY 01/16/22 Pantoprazole [Protonix Tab*] 40 mg PO DAILY 01/16/22 Pioglitazone HCl 45 mg PO DAILY 01/16/22 Rosuvastatin Calcium 40 mg PO DAILY 01/16/22 Tamsulosin HCl [Flomax] 0.4 mg PO Q48H 01/16/22 Venlafaxine HCl [Venlafaxine HCl ER] 75 mg PO DAILY 01/16/22 hydroCHLOROthiazide [Hydrochlorothiazide] 25 mg PO DAILY 01/16/22 lisinopriL [Lisinopril] 40 mg PO DAILY 01/16/22 - Past Medical/Surgical History Diabetic: Yes -: DM -: HTN -: atrial fibrilation -: GERD -: enlarged prostate -: wisdom teeth removal -: colonoscopy/endoscopy - Family History Mother -: Heart disease Notes: pt states mother had heart failure Father -: Lung disease, Cancer Notes: pt states father had lung cancer - Social History Smoking Status: Never smoker Alcohol use: No CD- Drugs: No Caffeine use: No Place of Residence: Home Review of Systems General: Sweats Eyes: Unremarkable ENT: Unremarkable Respiratory: SOB with Excertion Cardiovascular: Unremarkable Gastrointestinal: Nausea Genitourinary: Unremarkable Musculoskeletal: Unremarkable Integumentary: Unremarkable Neurological: Other (Dizziness) Lymphatics: Unremarkable Physical Examination - Vital Signs Blood Pressure: 154/96 Pulse: 89 - Physical Exam General: Alert, Oriented x3, Cooperative HEENT: Atraumatic, PERRLA, Mucous membr. moist/pink, EOMI, Sclerae nonicteric Neck: Supple, 2+ carotid pulse no bruit, No LAD, Without JVD or thyroid abnormality Respiratory: Clear to auscultation bilaterally, Normal air movement Cardiovascular: No edema, No murmurs Capillary refill: <2 Seconds Gastrointestinal: Normal bowel sounds, Soft and benign, No tenderness Musculoskeletal: No clubbing, No swelling, No contractures, No tenderness Integumentary: No rashes Neurological: Normal speech, Normal strength at 5/5 x4 extr, Normal tone, Normal affect Lymphatics: No axilla or inguinal lymphadenopathy - Studies Laboratory Data (last 24 hrs) 02/21/22 10:30: Sodium 138, Potassium 4.1, BUN 33 H, Creatinine 2.46 H, Glucose 277 H, Total Bilirubin 0.3, AST 16, ALT 27, Alkaline Phosphatase 67, Lipase 202 02/21/22 10:30: WBC 6.00, Hgb 13.0 L, Hct 38.6 L, Plt Count 295 Assessment and Plan - Plan --KURT. Nephrology consulted. Continue IV hydration. We will hold off on DMITRI inhibitors. Avoid NSAIDs and nephrotoxins. Further management per hydraulics teacher. --DM2. BS monitoring with sliding scale insulin. --Dizziness. Patient reports episodes of syncope in the last couple of weeks. Carotid Doppler pending to rule out any carotid artery stenosis. We will get some orthostatic vital signs. Echocardiogram done last month indicates normal findings. Patient follows up with outpatient color maker dyer. Fall precautions. --Paroxysmal atrial fibrillation. Patient not on anticoagulant. Continue beta- kings. Telemetry to monitor for any malignant arrhythmia. Continue supportive care. --HLD. Continue statin. --GERD. Continue Protonix. --Hypertension. Poorly controlled. Continue home medications and labetalol as needed. --Anxiety disorder. Continue home medications. --Sleep apnea. Continue supportive care. --Class II obesity. Likely secondary to excess calories intake. Patient counseled on weight reduction, diet and exercise therapy. -- DVT prophylaxis with heparin subQ. Discharge Plan: Home Plan to discharge in: Greater than 2 days - Advance Directives Does patient have a Living Will: No Does patient have a Durable POA for Healthcare: No - Code Status/Comfort Care Code Status Assessed: Yes Physician Review: Patient Assessed, Agree with Above Assessment and Plan Critical Care: No
--- NOTE | 2022-02-21 14:50 | EKG ---
Test Date: 2022-02-21 Test Time: 11:41:11 Retail Cashier: YAEL MEASUREMENT RESULTS: Intervals: Rate: 84 VT: 180 QRSD: 96 QT: 380 QTc: 449 Kelford: P: 52 VT: 180 QRS: -18 T: 59 INTERPRETIVE STATEMENTS: Normal sinus rhythm Moderate voltage criteria for LVH, may be normal variant Borderline ECG Compared to ECG 01/15/2022 17:06:35 Myocardial infarct finding no longer present Electronically Signed On 02-21-22 14:50:15 ORTHOPAEDIC NURSE by Addy Walls
[2022-02-21] MEDS ORDERED: NA CHLORIDE 0.9% 1,000 ML IV SCH (15:00)
[2022-02-21] MEDS: NA CHLORIDE 0.9% 1,000 ML IV SCH ×2 (15:00→22:14)
[2022-02-21] MEDS: INSULIN -REGULAR HUMAN 50 UNIT/0.5 ML ML SQ SCH ×2 (16:30→22:15)
--- NOTE | 2022-02-21 16:38 | P.PN ---
Brief Renal note (chart review only, full consult to follow by [facility] team) -Stage II KURT with Cr level higher than recent or baseline levels reviewed in the EMR, pt has otherwise had some mild fluctuation in levels over the past year. Presumed functional KURT in the setting of combined ACEi and thiazide diuretic use. UA on admission not too impressive other than elevated urine SG. Will obtain renal u/s to rule out any obstructive uropathy as he is on alpha kings for presumed BPH. Pt with complaints of dizziness and related and is on a number of BP lowering agents including Coreg, Nifedipine, HCTZ, Lisinopril and Tamsulosin. While recorded BP in ER are not low, would check orthostatic vitals. Will hydrate with isotonic NS IVF. Thank you for this referral, Bert Perez MD, RENE
[2022-02-21] MEDS ORDERED: INSULIN -REGULAR HUMAN 50 UNIT/0.5 ML ML ONE (16:46)
--- NOTE | 2022-02-21 17:41 | RAD REPORT ---
EXAM DESCRIPTION: US - Renal Ultrasound-Complete - 02/21/2022 5:18 pm CLINICAL HISTORY: KURT, eval renal parenchyma, eval PVR COMPARISON: Abdomen Pelvis W Contrast dated 01/17/2021; Abdomen Pelvis W Contrast dated 9; Abdomen Pelvis W Contrast dated 06/09/2018; Abdomen Pelvis W Contrast dated 11/25/2016Small [place] el Series dated 03/16/2016 FINDINGS: Both kidneys are normal in size, shape and echotexture. The right kidney measures 11.2 cm. No hydronephrosis, focal mass or perinephric fluid. The left kidney measures 10.3 cm. No hydronephrosis, focal mass or perinephric fluid. IMPRESSION: Unremarkable renal sonogram. No evidence of hydronephrosis
--- NOTE | 2022-02-21 17:43 | RAD REPORT ---
EXAM DESCRIPTION: US - Urinary Bladder - 02/21/2022 5:18 pm CLINICAL HISTORY: PVR COMPARISON: URINARY BLADDER dated 05/31/2014 FINDINGS: No gross abnormalities of the bladder identified. Pre-void bladder volume: 162 mL Post-void resdiual volume: 68 mL IMPRESSION: Postvoid residual of 68 mL. This is borderline elevated.
[2022-02-21 19:43] VITALS: BMI 38.4
[2022-02-21] MEDS ORDERED: DIPHENHYDRAMINE 25 MG TAB/CAP PO PRN (22:03)
[2022-02-21] MEDS: HEPARIN 5000 UNIT/ML 1 ML VIAL SQ SCH (22:14)
[2022-02-21 23:41] VITALS: O2SAT 96
[2022-02-22] MEDS: NA CHLORIDE 0.9% 1,000 ML IV SCH ×2 (01:00→11:00)
[2022-02-22 05:55] LABS: Hematocrit 33.3 % (39.6-49.0); Lymphocytes % 46.6 % (15.3-44.8); MCV 87.9 fL (80-100); RBC Red Blood Cell Count 3.79 M/uL (4.33-5.43)
[2022-02-22 05:56] LABS: Absolute Lymphocytes (CBC) 2.9 K/uL (0.7-4.9)
[2022-02-22 06:10] LABS: Potassium 3.5 mmol/L (3.5-5.1)
[2022-02-22 08:02] LABS: Blood Morphology Comment NOT SEEN (NOT SEEN); Platelet Estimate ADEQ; White Blood Cell Scan OK (OK)
[2022-02-22] MEDS ORDERED: ASPIRIN 81 MG CHEWABLE TABLET PO SCH (09:00)
[2022-02-22] MEDS ORDERED: VENLAFAXINE HCL XR 75 MG CAP PO SCH (09:00)
[2022-02-22] MEDS ORDERED: carvediloL 25 MG TAB PO SCH (09:00)
[2022-02-22] MEDS ORDERED: PANTOPRAZOLE 40MG TABLET PO SCH (09:00)
[2022-02-22] MEDS ORDERED: ROSUVASTATIN 10 MG TAB PO SCH (09:00)
[2022-02-22] MEDS ORDERED: NIFEDIPINE XL 60 MG TABLET PO SCH (09:00)
[2022-02-22] MEDS ORDERED: POTASSIUM CL SA 10 MEQ TAB PO SCH (09:00)
[2022-02-22] MEDS: BENZONATATE 100 MG CAP PO SCH (09:00)
[2022-02-22] MEDS ORDERED: HOME MED 1 EA UNK (Nifedipine [Nifedipine Er] 60 MG Tablet.Er) PO SCH (09:00)
--- NOTE | 2022-02-22 09:10 | P.CNS ---
Date of Consult: 02/22/22 Reason for Consult: KURT, orthostatic hypotension Requesting Physician: cathie zuniga Chief Complaint: Abnormal labs. History of Present Illness: Patient is a 71-year-old male with a past medical history significant for unspecified A. 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 He was found to be orthostatic in the ER, he was initiated on IVF for KURT. He has been on several anti hypertensives added over the years. He does hydrate well. He has reportedly had a prior pre-syncopal or syncopal episodes. Allergies escitalopram Allergy (Verified 02/21/22 21:34) Itching/Hives/Rash Penicillins Allergy (Verified 02/21/22 21:34) Rash Home Medications: LORazepam [Lorazepam] 1 mg PO Q6H PRN 01/16/22 Nifedipine [Nifedipine ER] 60 mg PO DAILY 01/16/22 Pantoprazole [Protonix Tab*] 40 mg PO DAILY 01/16/22 Venlafaxine HCl [Venlafaxine HCl ER] 75 mg PO DAILY 01/16/22 Aspirin [Adult Aspirin Regimen] 81 mg PO DAILY 02/21/22 carvediloL [Coreg*] 25 mg PO DAILY #30 tab 02/22/22 - Past Medical/Surgical History Diabetic: Yes -: DM -: HTN -: atrial fibrilation -: GERD -: enlarged prostate -: wisdom teeth removal -: colonoscopy/endoscopy - Family History Mother Medical History: Heart disease Notes: pt states mother had heart failure Father Medical History: Lung disease, Cancer Notes: pt states father had lung cancer - Social History Alcohol use: No CD- Drugs: No Caffeine use: No Place of Residence: Home Review of Systems General: Unremarkable Eyes: Unremarkable ENT: Unremarkable Respiratory: Unremarkable Cardiovascular: Light Headedness, As per HPI Gastrointestinal: Unremarkable Genitourinary: Unremarkable Musculoskeletal: Unremarkable Integumentary: Unremarkable Neurological: Other (Tremors) Lymphatics: Unremarkable Physical Examination Temp Pulse Resp BP Pulse Ox 97.6 F 86 18 114/46 L 97 02/22/22 08:00 02/22/22 08:00 02/22/22 08:00 02/22/22 08:00 02/22/22 08:00 General: Alert, In no apparent distress, Oriented x3 HEENT: Atraumatic, Normocephalic, PERRLA Neck: Supple Respiratory: Clear to auscultation bilaterally, Normal air movement Cardiovascular: No edema, Normal S1 S2 Gastrointestinal: Soft and benign, Non-distended, No tenderness Musculoskeletal: No clubbing, No swelling, No contractures Integumentary: No rashes, No breakdown Neurological: Normal speech, Normal tone, Normal affect Laboratory Data (last 24 hrs) 02/21/22 10:30: Sodium 138, Potassium 4.1, BUN 33 H, Creatinine 2.46 H, Glucose 277 H, Total Bilirubin 0.3, AST 16, ALT 27, Alkaline Phosphatase 67, Lipase 202 02/21/22 10:30: WBC 6.00, Hgb 13.0 L, Hct 38.6 L, Plt Count 295 Conclusions/Impression: A/P) -Stage II KURT with Cr level higher than recent or baseline levels reviewed in the EMR, pt has otherwise had some mild fluctuation in levels over the past year. Functional KURT in the setting of intra vascular volume depletion, combined ACEi and thiazide diuretic use. UA on admission not too impressive other than elevated urine SG. Cr level lower post hydration. -Unremarkable renal u/s -Dizziness due to orthostatic hypotension and effects of medications including non selective beta kings, alpha ikngs, CCB and other. -Discussed meds with Dr. Zuniga will hold ACEi and thiazide diuretic currently, will adjust Coreg to 12.5 mg BID, will lower CCB to Nifedipine 30 mg qHS with holding parameter. -Pt to maintain BP log and will f/u with me in clinic Bert Perez MD, RENE
--- NOTE | 2022-02-22 09:16 | P.DS ---
Admission Date: 02/21/22 Discharge Date: 02/22/22 Disposition: ROUTINE DISCHARGE Discharge Condition: FAIR Reason for Admission: Abnormal labs. - Problems (1) Acute renal failure Status: Acute (2) Orthostatic hypotension Status: Acute (3) BPH (benign prostatic hyperplasia) Status: Acute (4) Essential hypertension Status: Acute (5) Diabetes mellitus type 2 in obese Status: Acute (6) Obstructive sleep apnea Status: Acute Brief History of Present Illness: Patient is a 71-year-old male with a past medical history significant for A. fib, DM 2, GERD, hyperlipidemia, sleep apnea who presented with complaint of abnormal labs and dizziness. Patient reported that he has been suffering episodes of dizziness for the past couple of months and around , Patient experienced a syncopal episode. Patient reported persistent episode of dizziness whenever he changes position. Patient reported that he followed up with his PCP and had lab work done which showed abnormal kidney function. He was referred to the emergency department by his PCP. Blood work in the ED showed KURT with serum creatinine up to 2.46. Patient reported associated signs and symptoms of shortness of breath with exertion. Patient reported that he has also had episodes of hypotension and difficulty urinating. Patient denies any other signs or symptoms. He was hospitalized for further management. Hospital Course: Patient admitted to the medical floor and aggressively hydrated with IV fluid. Patient's renal function made a rapid recovery more than expected. He was orthostatic. Patient's chronic dizziness is secondary to orthostatic hypotension. He was seen in consultation by nephrology who recommended to discontinue patient on lisinopril and hydrochlorothiazide and reduce his blood pressure medications. Nifedipine dose was halved from 60 mg daily to 30 mg daily, Coreg 25 mg was splitting to 12.5 mg twice daily for A. fib rate control. Patient seem to relates his symptoms to tamsulosin and he takes a dose every other day. Patient advised to wear compression stockings and orthostatic precautions advised. He is informed to sit down for 2 to 4 minutes before getting up to walk. He will follow with urology Dr. Haley regarding his BPH. Patient deemed stable for discharge Vital Signs/Physical Exam: Temp Pulse Resp BP Pulse Ox 97.6 F 86 18 114/46 L 97 02/22/22 08:00 02/22/22 08:00 02/22/22 08:00 02/22/22 08:00 02/22/22 08:00 General: Alert, In no apparent distress, Oriented x3 HEENT: Mucous membr. moist/pink Neck: Supple, JVD not distended Respiratory: Clear to auscultation bilaterally, Normal air movement Cardiovascular: No edema, Normal S1 S2, Irregular heart rate/rhythm Gastrointestinal: Normal bowel sounds, Soft and benign, Non-distended, No tenderness Musculoskeletal: No swelling Integumentary: No rashes Neurological: Normal strength at 5/5 x4 extr Laboratory Data at Discharge: WBC 6.30 K/uL (4.3-10.9) 02/22/22 05:02 Hgb 11.5 g/dL (13.6-17.9) L D 02/22/22 05:02 Hct 33.3 % (39.6-49.0) L 02/22/22 05:02 Plt Count 264 K/uL (152-406) 02/22/22 05:02 Sodium 138 mmol/L (136-145) 02/22/22 05:02 Potassium 3.5 mmol/L (3.5-5.1) D 02/22/22 05:02 BUN 28 mg/dL (7-18) H 02/22/22 05:02 Creatinine 1.58 mg/dL (0.70-1.30) H 02/22/22 05:02 Glucose 149 mg/dL (74-106) H 02/22/22 05:02 Total Bilirubin 0.3 mg/dL (0.2-1.0) 02/21/22 10:30 AST 16 U/L (15-37) 02/21/22 10:30 ALT 27 U/L (16-61) 02/21/22 10:30 Alkaline Phosphatase 67 U/L (45-117) 02/21/22 10:30 Lipase 202 U/L (73-393) 02/21/22 10:30 Home Medications: LORazepam [Lorazepam] 1 mg PO Q6H PRN 01/16/22 Pantoprazole [Protonix Tab*] 40 mg PO DAILY 01/16/22 Venlafaxine HCl [Venlafaxine HCl ER] 75 mg PO DAILY 01/16/22 Aspirin [Adult Aspirin Regimen] 81 mg PO DAILY 02/21/22 Nifedipine Xl [Procardia Xl*] 30 mg PO DAILY #30 tab 02/22/22 Tamsulosin HCl 0.4 mg PO EVERY 3RD DAY #30 tab 02/22/22 carvediloL [Coreg] 12.5 mg PO BID #60 tab 02/22/22 New Medications: carvediloL [Coreg] 12.5 mg PO BID #60 tab Nifedipine Xl [Procardia Xl*] 30 mg PO DAILY #30 tab Tamsulosin HCl 0.4 mg PO EVERY 3RD DAY #30 tab Physician Discharge Instructions: PROBLEM:Acute Kidney Injury GOAL: Clear understanding of disease process INSTRUCTIONS: Diet: AHA Activity: Fall precautions Orthostatic precautions [employer] Services Needed: [place] [employer]: Date or Referral: IMMUNIZATION Influenza Vaccine Indicated: No Influenza Vaccine Given: Date Given: Pneumonia Vaccine Indicated: No Pneumonia Vaccine Given: Date Given: Diet: AHA Activity: Fall precautions Followup: Aly Oscar DO [ACTIVE - CAN ADMIT] - 1 Week Warren Luna MD [Primary Care Provider] - 1-2 Weeks Alessio Haley [ACTIVE - CAN ADMIT] - (Please call for appointment) Time spent managing pt's care (in minutes): 33
[2022-02-22] MEDS: INSULIN -REGULAR HUMAN 50 UNIT/0.5 ML ML SQ SCH ×2 (10:05→12:08)
[2022-02-22] MEDS: HEPARIN 5000 UNIT/ML 1 ML VIAL SQ SCH (10:07)
[2022-02-22 12:12] VITALS: BP 168/82; TEMP 96.9
== END 2022-02-22 13:01 | disposition home or self-care (01) | DRG 684 ==
LOC: ER 09:48 → ERHOLD 12:17 → 2ND 21:13
PROVIDERS: ADMIT Internal Medicine; ATTEND Internal Medicine
DX: N17.9 Acute kidney failure, unspecified (principal); K21.9 Gastro-esophageal reflux disease without esophagitis; E78.5 Hyperlipidemia, unspecified; I95.1 Orthostatic hypotension; N40.0 Benign prostatic hyperplasia without lower urinary tract symptoms; I48.0 Paroxysmal atrial fibrillation; E11.40 Type 2 diabetes mellitus with diabetic neuropathy, unspecified; F41.9 Anxiety disorder, unspecified; E66.09 Other obesity due to excess calories; G47.33 Obstructive sleep apnea (adult) (pediatric); Z88.8 Allergy status to other drugs, medicaments and biological substances; Z88.0 Allergy status to penicillin; Z68.38 Body mass index [BMI] 38.0-38.9, adult; Z79.82 Long term (current) use of aspirin; Z79.899 Other long term (current) drug therapy; Z20.822 Contact with and (suspected) exposure to COVID-19
CPT/HCPCS: 36415; 70450; 71045; 76770; 76857; 80048; 80053; 81003; 81015; 82947; 83036; 83690; 83880; 84484; 85025; 87811; 93005; 93880; 99285; J1644; J1815; J7030

== ENCOUNTER 2022-09-19 14:21 | Inpatient (IN) | payer OTHER, BC ==
--- OUTSIDE RECORDS SUMMARY | 2022-09-19 14:27 | XMS REPORT | Continuity of Care Document ---
:1950 Author Organization [facility] t Address [address] [place] [address] [address] [place] [address] Care Team Providers Name Role Phone Cheryl Warren Primary Care Physician Levar Arora Attending Clinician DWAIN VALDEZ Attending Clinician Unavailable LEVAR ARORA Attending Clinician Unavailable JESSICA WILSON Attending Clinician Unavailable Elsa Zhou RN Attending Clinician Unavailable Marino Newman MD Attending Clinician Cristóbal Ochoa MD Attending Clinician CRISTÓBAL OCHOA Attending Clinician Unavailable NABEEL JOHNSON Attending Clinician Unavailable TINA RAMIREZ Attending Clinician Unavailable Nabeel Zhao Attending Clinician LEONARDO CARLOS Attending Clinician Unavailable Cristóbal Ochoa MD Admitting Clinician CRISTÓBAL OCHOA Admitting Clinician Unavailable Payers Payer Name Policy Type Policy Number Effective Date Expiration Date S andriy [place] PAR - [id number] 2018 INDEMNITY 00:00:00 MEDICARE-PART B 5 [id number] 2020 00:00:00 BCBS 2 [id number] 2020 00:00:00 Problems Condition Condition Condition Status Onset Resolution Last Treating Co mments Source Name Details Category Date Date Treatment Clinician Date TREMOR, TREMOR, Diagnosis Active 2022-03-29 Memoria UNSPECIFIE UNSPECIFIE 03-20 10:10:00 l D D Active 00:00: Jacek [address] Acute Acute Disease Active 2021-02 Univers cough cough 03-03 ity of 00:00: [place] [id number] Medical Branch Flu Flu Disease Active 2021-02 Univers 03-03 ity of 00:00: [place] [address] Medical Branch Dyslipidem Dyslipidem Disease Active 2021-02 U nivers ia ia 03-03 ity of 00:00: [address] Elevated Elevated Disease Active 2021-02 Unive rs troponin I troponin I 03-03 it y of level level 00:00: [address] Hypertensi Hypertens Problem Active 2022-06-08 Memoria ve sai 01:43:01 l disorder, disorder, Herm dianne systemic systemic arterial arterial (disorder) (disorder) Active Problem 06/08/2022 [facility] Peripheral Periphera Problem Active 2022-06-08 Memoria nerve l nerve 01:43:01 l disease disease Jacek (disorder) (disorder) Active Problem 06/08/2022 [facility] Syncope Syncope Problem Active 2022-06-08 Me moria (disorder) (disorder) 01:43:01 l Active Jacek Problem 06/08/2022 [facility] Diabetes Diabetes Problem Active 2022-06-08 Memoria mellitus mellitus 01:43:01 l type 2 type 2 [place] (disorder) (disorder) Active Problem 06/08/2022 [facility] Hyperlipid Hyperlipi Problem Active 2022-06-08 Memoria emia demia 01:43:01 l (disorder) (disorder) He rmann Active Problem 06/08/2022 [facility] Backache Backache Problem Resolve 2021-01-05 Memoria (finding) (finding) d 23:07:23 l Resolved [place] Problem 01/05/2021 [facility] Neck pain Neck Problem Resolve 2021-01-05 M emoria (finding) pain d 23:07:23 l (finding) [place] Resolved Problem 01/05/2021 [facility] Shoulder Shoulder Problem Resolve 2021-01-05 Memoria pain pain d 23:07:23 l (finding) (finding) Herm dianne Resolved Problem 01/05/2021 [facility] Parkinson' Parkinson Problem Active 2022-06-08 Memoria s disease 's disease 01:43:01 l (disorder) (disorder) He rmann Active Problem 06/08/2022 [facility] Yell Tremor Tremor Problem Active 2022-06-08 Eliezer patricia (finding) (finding) 01:43:01 l Active [place] Problem 06/08/2022 [facility] [place] Dizziness Dizziness Problem Active 2022-06-08 Memoria (finding) (finding) 01:43:01 l Active Jacek Problem 06/08/2022 [facility] Insomnia Insomnia Disease Active Kelse y Seybold [...] Active Univers ALLERGIE Class ity of S [facility] penicill penicill Active Memori a in in l Jacek escitalo escitalo Active Memori a rodney Read Social History Social Habit Start Date Stop Date Quantity Comments Source History of Passive smoker University of tobacco use [facility] Tobacco use and 2022-01-01 2022-01-01 Smokeless tobacco Un iversity of exposure 00:00:00 00:00:00 non-user [facility] Alcohol intake 2022-01-01 2022-01-01 Ex-drinker [facility] 00:00:00 00:00:00 (finding) [facility] Exposure to 2021-12-21 2021-12-31 Not sure [facility] SARS-CoV-2 00:00:00 23:58:00 [facility] (event) Branch Sex Ass[birth year] At [birth year] Universit y of 00:00:00 00:00:00 [facility] Smoking Status Start Date Stop Date Source Tobacco smoking status [facility] Medications Ordered Filled Start Stop Current Ordering Indication Dosage Frequency Signature Comments Components Source Medication Medication Date Date Medication? 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 NovoLOG Yes INJECT Memor ia FlexPen 100 1-25 DIRECTED l units/mL 22:02: PER Jacek injectable 00 MODERATE solution SLIDING SCALE MAX OF 3 TIMES DAILY WITH MAXIMUM OF 33 UNITS PER DAY. NIFEdipine Yes TAKE ONE Mem oria (Eqv-Procar 1-25 (1) l amari XL) 30 22:02: TABLET(S) He rmann mg oral 00 BY MOUTH tablet, ONCE A extended DAY. release labetalol Yes TAKE ONE Eliezer patricia 100 mg oral 1-25 (1) l tablet 22:02: TABLET(S) Endy n 00 BY MOUTH TWICE A DAY. LORazepam 1 Yes TAKE ONE Me moria mg oral 1-25 TABLET BY l tablet 22:02: MOUTH [place] 00 EVERY SIX HOURS NEEDED. Benadryl Yes 0 Memoria 1-25 Refill(s) l 22:02: [place] 00 cephalexin Yes TAKE ONE Mem oria 500 mg oral 1-25 (1) l capsule 22:02: CAPSULE(S) Herm dianne 00 BY MOUTH FOUR TIMES A DAY. NovoLOG Yes INJECT Memor ia FlexPen 100 1-25 DIRECTED l units/mL 22:02: PER Jacek injectable 00 MODERATE solution SLIDING SCALE MAX OF 3 TIMES DAILY WITH MAXIMUM OF 33 UNITS PER DAY. NIFEdipine Yes TAKE ONE Mem oria (Eqv-Procar 1-25 (1) l amari XL) 30 22:02: TABLET(S) He rmann mg oral 00 BY MOUTH tablet, ONCE A extended DAY. release labetalol Yes TAKE ONE Eliezer patricia 100 mg oral 1-25 (1) l tablet 22:02: TABLET(S) Endy n 00 BY MOUTH TWICE A DAY. LORazepam 1 Yes TAKE ONE Me moria mg oral 1-25 TABLET BY l tablet 22:02: MOUTH Jacek 00 EVERY SIX HOURS NEEDED. Benadryl Yes 0 Memoria 1-25 Refill(s) l 22:02: [place] 00 Edarbyclor Yes 1 tab, PO, M emoria 40 mg-12.5 1-25 Daily, # l mg oral 22:01: 30 tab, 3 Jayshree nn tablet 00 Refill(s) pantoprazol Yes 40 mg = 1 M emoria e 40 mg 1-25 tab, PO, l oral 22:01: Daily, # [place] enteric 00 30 tab, 1 coated Refill(s) tablet Edarbyclor Yes 1 tab, PO, M emoria 40 mg-12.5 1-25 Daily, # l mg oral 22:01: 30 tab, 3 Jayshree nn tablet 00 Refill(s) pantoprazol Yes 40 mg = 1 M emoria e 40 mg 1-25 tab, PO, l oral 22:01: Daily, # [place] enteric 00 30 tab, 1 coated Refill(s) tablet NIFEdipine 2021-02- No [id number] 60mg Take 1 Univers ER 60 mg 1-24 12-25 tablet by ity o f tablet 00:00: 05:59 mouth in [place] 00 :00 the [facility] for 30 days. pantoprazol 2021-02- No [id number] 40mg Take 1 Univers e 40 mg EC 1-24 12-25 tablet by ity of tablet 00:00: 05:59 mouth in [place] 00 :00 the Medical [facility] Branch for 30 days. NIFEdipine 2021-02- No [id number] 60mg Take 1 Univers ER 60 mg 03-0625 tablet by ity o f tablet 00:00: 05:59 mouth in [place] 00 :00 the [facility] Branch for 30 days. pantoprazol 2021-02- No [id number] 40mg Take 1 Univers e 40 mg EC 03-0625 tablet by ity of tablet 00:00: 05:59 mouth in [place] 00 :00 the [facility] Branch for 30 days. levalbutero 2021-02- No .31mg 0.31 mg, Univers l (XOPENEX) 03-05 Inhalation i ty of nebulizer 18:30: 17:24 , [place]CE, 1 [place] solution 00 :00 dose, On Medical 0.31 mg [facility] Branch 01/03/22 at 1230, Routine KCL 2021-02- No 40meq 40 mEq, Univers (KLOR-CON 03-05 Oral, ity of M20) tablet 16:30: 17:49 ONCE, 1 [place] 40 mEq 00 :00 dose, On Medical [facility] Branch 01/03/22 at 1030, Routine lisinopriL 2021-02 Yes 20mg Take 20 mg U nivers 20 mg 03-05 by mouth ity of tablet 13:44: in the [place] [address] morning. Medical Branch carvediloL 2021-02 Yes 25mg Take 25 mg U nivers 25 mg 03-05 by mouth ity of tablet 13:44: in the [place] [address] morning Medical and 25 mg Branch in the evening. Take with meals. rosuvastati 2021-02 Yes Take by Uni vers n 20 mg 03-05 mouth. ity of CpSP 13:44: [address] tamsulosin 2021-02 Yes Take by Univ ers 0.4 mg 24 03-05 mouth ity of hr capsule 13:44: daily. [address] insulin 2021-02 Yes 80U inject 80 Unive rs degludec -23 Units ity of (TRESIBA 13:44: [place] FLEXTOUCH 42 skin every Medi edwin U-100) 100 morning. Branc h unit/mL (3 mL) InPn pioglitazon 2021-02 Yes 15mg Take 15 mg Univers e (ACTOS) 1-23 by mouth ity of 15 mg 13:44: in the [place] tablet 42 morning. Medical Branch lisinopriL 2021-02 Yes 20mg Take 20 mg U nivers 20 mg 1-23 by mouth ity of tablet 13:44: in the [place] 42 morning. Medical Branch carvediloL 2021-02 Yes 25mg Take 25 mg U nivers 25 mg 1-23 by mouth ity of tablet 13:44: in the [place] 42 morning Medical and 25 mg Branch in the evening. Take with meals. rosuvastati 2021-02 Yes Take by Uni vers n 20 mg 1-23 mouth. ity of CpSP 13:44: [address] Branch tamsulosin 2021-02 Yes Take by Univ ers 0.4 mg 24 1-23 mouth ity of hr capsule 13:44: daily. [address] Branch insulin 2021-02 Yes 80U inject 80 Unive rs degludec 1-23 Units ity of (TRESIBA 13:44: [place] FLEXTOUCH 42 skin every Medi edwin U-100) 100 morning. Branc h unit/mL (3 mL) In pioglitazon 2021-02 Yes 15mg Take 15 mg Univers e (ACTOS) 1-23 by mouth ity of 15 mg 13:44: in the [place] tablet 42 morning. Medical Branch benzonatate 2021-02- No [id number] 100mg Take 1 Univers 100 mg - 12- capsule by ity of capsule 00:00: 05:59 mouth [place] 00 :00 every 8 Medical (eight) Branch hours for 7 days. benzonatate 2021-02- No [id number] 100mg Take 1 Univers 100 mg -23 12- capsule by ity of capsule 00:00: 05:59 mouth [place] 00 :00 every 8 Medical (eight) Branch hours for 7 days. oseltamivir 2021-02- No [id number] 75mg Take 1 Univers 75 mg - 11-27 capsule by ity of capsule 00:00: 05:59 mouth in [place] 00 :00 the Medical morning Branch and 1 capsule in the evening. Do all this for 3 days. levalbutero 2021-02- No .31mg 0.31 mg, Univers l (XOPENEX) 03-04 Inhalation i ty of nebulizer 19:30: 20:02 , ONCE, 1 [place] solution 00 :00 dose, On Medical 0.31 mg Sat [place] 01/02/22 at 1330, Routine Sliding 2021-02 Yes Subcutaneo Univ ers Scale - us, TID ity of Insulin - 18:00: MEALS+HS, [place] Lispro 00 First dose Medical (HumaLOG) + (after Branch Fsbg last Testing modificati on) on Sat01/02/22 at 1200, Until Discontinu ed, Routine NIFEdipine 2021-02 Yes 60mg 60 mg, Unive rs ER tablet 03-04 Oral, ity of 60 mg 15:00: DAILY, [place] 00 First dose Medical on [facility] 01/02/22 at 0900, Until Discontinu ed, Routine docusate 2021-02 Yes 100mg 100 mg, Unive rs (COLACE) 03-04 Oral, ity of capsule 100 15:00: DAILY, [place] mg 00 First dose Medical on [facility]3] 01/02/22 at 0900, Until Discontinu ed, Routine [...] QHSPRN, [place] 34 Starting Medical on [facility] 01/01/22 at 2330, Until Discontinu ed, Routine, Insomnia benzonatate 2021-02 Yes 100mg 100 mg, Un susie (TESSALON 03-04 Oral, Q8H, ity of PERLES) 04:00: [place] capsule 100 00 on [facility] Medica l mg 01/01/22 Branch at 2200, Until Discontinu ed, Routine lisinopriL 2021-02 Yes 20mg 20 mg, Unive rs (PRINIVIL,Z 03-04 Oral, BID, it y of ESTRIL) 02:00: [place] tablet 20 00 (after Medical mg last Branch modificati on) on Sat01/01/22 at 2000, Until Discontinu ed, Routine oseltamivir 2021-02 No 75mg 75 mg, Uni vers (TAMIFLU) 03-04 Oral, BID, ity of capsule 75 02:00: 01:59 10 doses, [place] mg 00 :00 First dose Medical (after Branch last reorder) on Sat01/01/22 at 2000, Last dose on [facility] 01/06/22 at 0800, JERROD enoxaparin 2021-02 Yes 40mg 40 mg, Unive rs (LOVENOX) 03-03 Subcutaneo ity of injection 23:00: [place], DAILY, [place] 40 mg 00 First dose Medical on [facility] 01/01/22 at 1700, Until Discontinu ed, Routine pantoprazol 2021-02 Yes 40mg 40 mg, Univ ers e 03-03 Oral, ity of (PROTONIX) 18:15: DAILY, [place] EC tablet 00 First dose Medi edwin 40 mg (after Branch last modificati on) on Sat01/01/22 at 1215, Until Discontinu ed, Routine sulfur 2021-02 No [id number] 5mL 5 mL, Univ ers hexafluorid 03-03 Intravenou i ty of e microsphr 16:15: 16:15 s, ONCE, 1 [place] (LUMASON) 00 :00 dose, On Medica l injection 5 Sat [place] mL 01/01/22 at 1015, Routine
meat service team member approving Restricted medication : RAQUEL [...] U-100) 00 First dose Medical injection on [facility] Branch 40 Units 01/01/22 at 0900, Until [...] Routine cloNIDine 2021-02- No .2mg 0.2 mg, Univ ers (CATAPRES) 03-03 Oral, ity of tablet 0.2 12:30: 11:49 ONCE, 1 [place] mg 00 :00 dose, On Medical Mon Branch 01/01/22 at 0630, Routine hydralAZINE 2021-02 Yes 10mg 10 mg, Univ ers (APRESOLINE 03-03 Slow IV ity o f ) injection 11:53: Push, [place] 10 mg 44 Q4HPRN, Medical Starting Branch on Sat01/01/22 at 0553, Until Discontinu ed, STAT, DBP=>100; SBP=>180 NaCl 0.9% 2021-02- No 1000mL at 100 Uni vers (NS) IV 03-03 1122 mL/hr, IV ity of infusion 09:00: 14:38 Infusion, [place] 1,000 mL 00 :18 CONTINUOUS Medic al , Starting Branch on Sat01/01/22 at 0300, Until Tu01/02/22 at 0838, Routine dextrose 2021-02 Yes 250mL [...] at 0249, Routine, Pain (scale 4-6) acetaminoph 2022-1 Yes 650mg 650 mg, Un susie en 03-03 Oral, ity of (TYLENOL) 08:50: Q6HPRN, [place] tablet 650 14 Starting Medic al mg on [facility] 01/01/22 at 0250, Until Discontinu ed, Routine, Pain (scale 1-3) NaCl 0.9% 2021-02 No 1000mL at 999 Uni vers (NS) bolus 03-03 mL/hr, ity of infusion 08:30: 08:00 1,000 mL, [place] 1,000 mL 00 :00 IV Medical [facility], Branch ONCE, 1 dose, On [facility] 01/01/22 at 0230, STAT aspirin 2021-02 No 325mg 325 mg, Unive rs tablet 325 03-03 Oral, ONCE it y of mg 08:30: 07:37 NOW, 1 [place] 00 :00 dose, On [facility] 01/01/22 at 0230, JERROD NaCl 0.9% 2021-02 No 500mL at 999 Univ ers (NS) bolus 03-03 mL/hr, 500 it y of infusion 07:45: 07:43 mL, IV [place] 500 mL 00 :[address] [facility] ONCE, 1 Branch dose, On [facility] 01/01/22 at 0145, STAT oseltamivir 2021-02 No 75mg 75 mg, Uni vers (TAMIFLU) 03-03 Oral, ONCE ity of capsule 75 07:45: 06:58 NOW, 1 [place] mg 00 :00 dose, On [facility] 01/01/22 at 0145, JERROD ibuprofen 2021-02- No 600mg 600 mg, Uni vers (IBU) 03-03 Oral, ity of tablet 600 06:15: 06:12 ONCE, 1 [place] mg 00 :00 dose, On [facility] 01/01/22 at 0015, JERROD Pyridostigm 2020-02 Yes 60 mg = 1 M emoria ine [place] 0-14 tab, PO, l 60 MG Oral 20:19: BID, # 60 He rmann Tablet 00 tab, 3 [Mestinon] Refill(s), Pharmacy: [facility] [place], 175.26, cm, 11/24/20 15:02:00 CDT, Height, 127.727, kg, 11/24/20 15:02:00 CDT, Weight Pyridostigm 2020-02 Yes 60 mg = 1 M emoria ine [place] 0-14 tab, PO, l 60 MG Oral 20:19: BID, # 60 He rmann Tablet 00 tab, 3 [Mestinon] Refill(s), Pharmacy: [facility], 175.26, cm, 11/24/20 15:02:00 CDT, Height, 127.727, kg, 11/24/20 15:02:00 CDT, Weight Pyridostigm 2020-02 Yes 60 mg = 1 M emoria ine [place] 0-14 tab, PO, l 60 MG Oral 20:19: BID, # 60 He rmann Tablet 00 tab, 3 [Mestinon] Refill(s), Pharmacy: [facility], 175.26, cm, 11/24/20 15:02:00 CDT, Height, 127.727, kg, 11/24/20 15:02:00 CDT, Weight Pyridostigm 2020-02 Yes 60 mg = 1 M emoria ine [place] 0-14 tab, PO, l 60 MG Oral 20:19: BID, # 60 He rmann Tablet 00 tab, 3 [Mestinon] Refill(s), Pharmacy: [facility], 175.26, cm, 11/24/20 15:02:00 CDT, Height, 127.727, kg, 11/24/20 15:02:00 CDT, Weight Pyridostigm 2020-02 Yes 60 mg = 1 M emoria ine [place] 0-14 tab, PO, l 60 MG Oral 20:19: BID, # 60 He rmann Tablet 00 tab, 3 [Mestinon] Refill(s), Pharmacy: [facility], 175.26, cm, 11/24/20 15:02:00 CDT, Height, 127.727, kg, 11/24/20 15:02:00 CDT, Weight Aspirin 81 0 Yes 81mg Take 81 mg K elsey MG oral 9-20 by mouth Seybold Tablet 13:57: daily Delayed 01 Response Melatonin Yes 2{tbl} Take 2 Mer ey 10 MG oral 9-20 tablets by Sey bold Capsule 13:57: mouth 01 every night at bedtime Baclofen 10 Yes [id number] 10mg Take 1 April MG oral 9-20 tablet (10 Seybol d Tablet 00:00: mg total) 00 by mouth 3 times daily Meloxicam Yes [id number] 15mg Take 1 K elsey 15 MG oral 9-20 tablet (15 Sey bold Tablet 00:00: mg total) 00 by mouth daily Pantoprazol Yes [id number] 40mg Take 1 April e Sodium 40 9-20 tablet (40 Se ybold MG oral 00:00: mg total) Tablet 00 by mouth Delayed daily Response Insulin Pen Yes 1{box} 1 box by April Needle (Pen 10-19 does not Seyb old [place]) 00:00: apply 32G X 4 MM 00 route does not daily apply Misc Insulin Yes [id number] 48U Inject 48 K elsey Degludec 10-19 units into Seybo ld (Tresiba 00:00: the [...] 0 Me moria 9-02 Refill(s) l 21:03: [place] 00 Ibuprofen 2020-0 Yes 0 Memoria 9-02 Refill(s) l 21:03: [place] 00 melatonin 2020-0 Yes Bedtime, 0 Me moria 9-02 Refill(s) l 21:03: Melatonin 2020-0 Yes Bedtime, 0 Me moria 9-02 Refill(s) l 21:03: [place] 00 Ibuprofen 2020-0 Yes 0 Memoria 9-02 Refill(s) l 21:03: Jacek 00 Melatonin 0 Yes Bedtime, 0 Me moria 9-02 Refill(s) l 21:03: Jacek 00 Ibuprofen 2020-0 Yes 0 Memoria 9-02 Refill(s) l 21:03: Melatonin 2020-0 Yes Bedtime, 0 Me moria 9-02 Refill(s) l 21:03: Ibuprofen 2020-0 Yes 0 Memoria 9-02 Refill(s) l 21:03: Melatonin 2020-0 Yes Bedtime, 0 Me moria 9-02 Refill(s) l 21:03: Ibuprofen 2020-0 Yes 0 Memoria 9-02 Refill(s) l 21:03: Melatonin 2020-0 Yes Bedtime, 0 Me moria 9-02 Refill(s) l 21:03: Ibuprofen 2020-0 Yes 0 Memoria 9-02 Refill(s) l 21:03: melatonin 2020-0 Yes Bedtime, 0 Me moria 9-02 Refill(s) l 21:03: Jacek 00 3 ML 2020-0 Yes 0 Memoria insulin 9-02 Refill(s) l degludec 20:55: [place] 100 UNT/ML 00 Pen Injector [Tresiba] 3 ML 0 Yes 0 Memoria insulin 9-02 Refill(s) l degludec 20:55: Jacek 100 UNT/ML 00 Pen Injector [Tresiba] 3 ML 2020-0 Yes 0 Memoria insulin 9-02 Refill(s) l degludec 20:55: Jacek 100 UNT/ML 00 Pen Injector [Tresiba] 3 ML Yes 0 Memoria insulin 10-13 Refill(s) l degludec 20:55: [place] 100 UNT/ML 00 Pen Injector [Tresiba] 3 ML Yes 0 Memoria insulin 10-13 Refill(s) l degludec 20:55: Jacek 100 UNT/ML 00 Pen Injector [Tresiba] 3 ML Yes 0 Memoria insulin 10-13 Refill(s) l degludec 20:55: Jacek 100 UNT/ML 00 Pen Injector [Tresiba] gabapentin Yes 200 mg = 2 M [...] tab, PO, l oral 20:54: Daily, # [place] enteric 00 30 tab, 0 coated Refill(s) tablet rosuvastati Yes 40 mg = 1 M emoria n 40 mg 10-13 tab, PO, l oral tablet 20:54: Bedtime, # [place] 00 90 tab, 3 Refill(s) lisinopril Yes 40 mg = 1 Me moria 40 mg oral 10-13 tab, PO, l tablet 20:54: Daily, # [place] 00 30 tab, 0 Refill(s) 3 ML Yes 1.2 mg, Memoria liraglutide 10-13 SUB-Q, l 6 MG/ML 20:54: Daily, # 6 Herm dianne Prefilled 00 mL, 3 Syringe Refill(s) [Victoza] tamsulosin Yes 0.4 mg = 1 M emoria 0.4 mg oral 10-13 cap, PO, l capsule 20:54: Daily, # Endy n 00 30 cap, 0 Refill(s) venlafaxine Yes 75 mg = 1 M emoria 75 mg oral 10-13 cap, PO, l capsule, 20:54: Daily, # Jayshree nn extended 00 30 cap, 0 release Refill(s) tamsulosin Yes 0.4 mg = 1 [...] PO, l oral tablet 20:54: Bedtime, # [place] 00 90 tab, 3 Refill(s) lisinopril Yes [...] PO, l oral tablet 20:54: Bedtime, # [place] 00 90 tab, 3 Refill(s) lisinopril Yes 40 mg = 1 Me moria 40 mg oral 10-13 tab, PO, l tablet 20:54: Daily, # [place] 00 30 tab, 0 Refill(s) venlafaxine Yes [...] tab, PO, l oral 20:54: Daily, # [place] enteric 00 30 tab, 0 coated Refill(s) tablet rosuvastati Yes 40 mg = 1 M emoria n 40 mg 10-13 tab, PO, l oral tablet 20:54: Bedtime, # [place] 00 90 tab, 3 Refill(s) lisinopril Yes 40 mg = 1 Me moria 40 mg oral 10-13 tab, PO, l tablet 20:54: Daily, # [place] 00 30 tab, 0 Refill(s) venlafaxine Yes [...] tab, PO, l oral 20:54: Daily, # [place] enteric 00 30 tab, 0 coated Refill(s) tablet rosuvastati Yes 40 mg = 1 M emoria n 40 mg 10-13 tab, PO, l oral tablet 20:54: Bedtime, # Jacek 00 90 tab, 3 Refill(s) lisinopril Yes 40 mg = 1 Me moria 40 mg oral 10-13 tab, PO, l tablet 20:54: Daily, # [place] 00 30 tab, 0 Refill(s) venlafaxine Yes [...] tab, PO, l oral 20:54: Daily, # [place] enteric 00 30 tab, 0 coated Refill(s) tablet rosuvastati Yes 40 mg = 1 M emoria n 40 mg 10-13 tab, PO, l oral tablet 20:54: Bedtime, # [place] 00 90 tab, 3 Refill(s) lisinopril Yes 40 mg = 1 Me moria 40 mg oral 10-13 tab, PO, l tablet 20:54: Daily, # Jacek 00 30 tab, 0 Refill(s) 3 ML Yes 1.2 mg, Memoria liraglutide 10-13 SUB-Q, l 6 MG/ML 20:54: Daily, # 6 Herm dianne Prefilled 00 mL, 3 Syringe Refill(s) [Victoza] tamsulosin Yes 0.4 mg = 1 M emoria 0.4 mg oral 10-13 cap, PO, l capsule 20:54: Daily, # Endy n 00 30 cap, 0 Refill(s) venlafaxine Yes 75 mg = 1 M emoria 75 mg oral 9-02 cap, PO, l capsule, 20:54: Daily, # Jayshree nn extended 00 30 cap, 0 release Refill(s) Gabapentin Yes [id number] 100mg Take 1 April 100 MG oral [...] Hour mouth Sustained daily Release Liraglutide Yes [id number] 1.8mg Inject 1.8 April (Victoza) 6-17 mg [...] 100 Mcg/0.5ml,IM Tdap- (Boostrix, 2015-12-09 Completed April baiely Adacel) 00:00:00 Vital Signs Vital Name Observation Time Observation Value Comments Source Respiratory rate 2022-01-03 17:25:00 16 /min [facility] Oxygen saturation in 2022-01-03 17:25:00 92 /min [facility] blood by [facility] Pulse oximetry Branch Systolic blood 2022-01-03 17:17:00 97 mm[Hg] Univer sity of [facility] Diastolic blood 2022-01-03 17:17:00 55 mm[Hg] [facility] Heart rate 2022-01-03 17:17:00 88 /min [facility] Body temperature 2022-01-03 17:17:[address] [facility] Body weight 2022-01-03 11:27:00 134.99 kg [facility] BMI 2022-01-03 11:27:00 41.51 kg/m2 [facility] Body height 2022-01-01 05:55:00 180.3 cm [facility] Systolic blood 2020-10-31 18:54:00 148 mm[Hg] April ybold pressure Diastolic blood 2020-10-31 18:54:00 84 mm[Hg] Kelse y Seybold pressure Heart rate 2020-10-31 18:54:00 68 /min April zamorabold Body temperature 2020-10-31 18:54:00 35.56 Filomena Mer ey Seybold Respiratory rate 2020-10-31 18:54:00 14 /min Mer ey Seybold Body height 2020-10-31 18:54:00 180.3 cm April S eybold Body weight 2020-10-31 18:54:00 124.739 kg April S eybold BMI 2020-10-31 18:54:00 38.35 kg/m2 April S eybold Systolic (mm Hg) 2022-04-04 19:56:00 Eliezer yesika Read Diastolic (mm Hg) 2022-04-04 19:56:00 Mem orial Jacek Heart Rate 2022-04-04 19:56:00 [facility] [place] Height 2022-04-04 19:56:00 5 [ft_i] [facility] [place] Weight 2022-04-04 19:56:00 [facility] [place] BMI Calculated 2022-04-04 19:56:00 Memori al Jacek Systolic (mm Hg) 2022-03-07 20:54:00 Eliezer rial Jacek Diastolic (mm Hg) 2022-03-07 20:54:00 [facility] Heart Rate 2022-03-07 20:54:00 [facility] Height 2022-03-07 20:54:00 5 [ft_i] [facility] Weight 2022-03-07 20:54:00 [facility] BMI Calculated 2022-03-07 20:54:00 [facility] Systolic (mm Hg) 2020-11-24 20:02:00 [facility] Diastolic (mm Hg) 2020-11-24 20:02:00 [facility] Heart Rate 2020-11-24 20:02:00 [facility] Respitory Rate 2020-11-24 20:02:00 [facility] Height 2020-11-24 20:02:00 175.26 cm [facility] Weight 2020-11-24 20:02:00 [facility] BMI Calculated 2020-11-24 20:02:00 [facility] Systolic (mm Hg) 2020-10-13 20:32:00 Eliezer rial [facility]ace[facility] Diastolic (mm Hg) 2020-10-13 20:32:00 [facility] Height 2020-10-13 20:32:00 180.34 cm [facility] Weight 2020-10-13 20:32:00 [facility] BMI Calculated 2020-10-13 20:32:00 [facility] Procedures Procedure Date / Time Performing Clinician Source Performed POCT GLUCOSE (AUTOMATED) 2022-01-03 13:18:00 Cristóbal Ochoa [facility] BASIC METABOLIC PANEL 2022-01-03 10:02:00 Cristin Cerda [facility] (NA, K, CL, CO2, GLUCOSE, Medica l Branch BUN, CREATININE, CA) POCT GLUCOSE (AUTOMATED) 2022-01-03 02:47:00 Cristóbal Ochoa [facility] POCT GLUCOSE (AUTOMATED) 2022-01-02 22:54:00 Cristóbal Ochoa [facility] POCT GLUCOSE (AUTOMATED) 2022-01-02 17:53:00 Cristóbal Ochoa [facility] POCT GLUCOSE (AUTOMATED) 2022-01-02 14:06:00 Cristóbal Ochoa [facility] CREATINE KINASE 2022-01-02 09:14:00 [facility] 2022-01-02 09:14:00 Dawood [facility] BASIC METABOLIC PANEL 2022-01-02 09:14:00 Behzad Seay [facility] (NA, K, CL, CO2, GLUCOSE, Medica l Branch BUN, CREATININE, CA) LIPID PANEL (75487)(TOTAL 2022-01-02 09:14:00 Cristóbal Ochoa [facility] TRIGLY[facility]ER[facility], HDL) N-TERMINAL PRO-BNP 2022-01-02 09:14:00 Cristóbal Ochoa [facility] POCT GLUCOSE (AUTOMATED) 2022-01-02 09:12:00 Cristóbal Ochoa [facility] POCT GLUCOSE (AUTOMATED) 2022-01-02 05:24:00 Cristóbal Ochoa [facility] POCT GLUCOSE (AUTOMATED) 2022-01-02 01:54:00 Cristóbal Ochoa [facility] POCT GLUCOSE (AUTOMATED) 2022-01-01 22:48:00 Cristóbal Ochoa [facility] TROPONIN I 2022-01-01 18:04:00 Don [facility] POCT GLUCOSE (AUTOMATED) 2022-01-01 17:58:00 Marino Newman [facility] TRANSTHORACIC ECHO (TTE) 2022-01-01 15:40:00 Behzad Seay [facility] COMPLETE W/ CONTRAST Medical [facility] POCT GLUCOSE (AUTOMATED) 2022-01-01 13:58:00 Marino [facility] PHOS[facility]US 2022-01-01 09:01:00 Behzad Seay [facility] LACTIC ACID WHOLE BLOOD 2022-01-01 09:01:[address] [facility] URINALYSIS 2022-01-01 06:59:00 Marino Newman [facility] XR CHEST 1 VW 2022-01-01 06:19:00 Marino Newman [facility] LACTIC ACID WHOLE BLOOD 2022-01-01 06:12:[address] [facility] BLOOD CULTURE SCREEN 2022-01-01 06:07:00 Marino Newman [facility] CK (CREATINE KINASE) + MB 2022-01-01 06:07:00 Marino Newman [facility] TROPONIN I 2022-01-01 06:07:00 Marino Newman [facility] COMP. METABOLIC PANEL 2022-01-01 06:07:00 Marino Newman [facility] ([id number]) [facility] CBC WITH DIFF 2022-01-01 06:07:00 Marino Newman [facility] GLYCOSYLATED HEMOGLOBIN 2022-01-01 06:07:00 Behzad Seay [facility] (A1C) [facility] RAPID INFLUENZA A/B 2022-01-01 06:07:00 Marino Newman [facility] COVID-19 (ID NOW RAPID 2022-01-01 06:07:00 Marino Newman [facility] TESTING) Medical Branch LAB ONLY COVID 2022-01-01 06:07:00 Marino Newman [facility] HB ECG ROUTINE & RHYTHM 2022-01-01 05:56:35 Marino Newman [facility] Knee arthroplasty [facility] Encounters Start End Encounter Admission Attending Care Care Encounter Source Date/Time Date/Time Type Type Clinicians Facility Department ID 2022-04-12 Outpatient [facility] [id number] [place] 08:56:33 [id number] [facility] 2022-04-11 Outpatient [facility] [id number] [place] 10:39:05 [id number] [facility] 2022-06-05 2022-06-05 Ambulatory [facility] MNA [id number] Memoria 19:00:00 19:00:00 Pre-Reg Neurology 07 l [facility] 2022-06-05 2022-06-05 Ambulatory MHIE MNA [id number] Memoria 19:00:00 19:00:00 Pre-Reg Neurology 07 l [facility] 2022-06-05 2022-06-05 Outpatient MHIE MHIE [id number] Memoria 14:00:00 14:00:00 07 l [facility] 2022-06-05 2022-06-05 Outpatient FILIBERTO Arora MISCHER [id number] 14:00:00 14:00:00 Levar 07 Thomas 2022-04-04 2022-04-05 Outpatient MHIE MNA [id number] Memoria 19:45:00 05:59:59 Neurology 06 l Yell [facility] 2022-04-04 2022-04-05 Outpatient MHIE MNA [id number] Memoria 19:45:00 05:59:59 Neurology 06 l Yell [facility] 2022-04-04 2022-04-04 Outpatient FILIBERTO Arora [id number] 13:45:00 23:59:59 Levar Lian Guzman 2022-04-04 2022-04-04 Outpatient MHIE MHIE [id number] Memoria 13:45:00 13:45:00 06 [facility] 2022-03-29 2022-03-30 Outpatient MHIE [facility] [id number] Memoria 15:59:00 05:59:00 [place] 00 [facility] 2022-03-29 2022-03-30 Outpatient [facility] [id number] Memoria 15:59:00 05:59:00 [facility] 00 [facility] 2022-03-30 2022-03-30 Outpatient APRIL VALDEZ [id number] April 00:00:00 00:00:00 DWAIN france 2022-03-29 2022-03-29 Outpatient Ulysses [facility] [id number] 09:59:00 23:59:00 Levar 00 Thomas 2022-03-29 2022-03-29 Outpatient ULYSSES [facility] [id number] [facility] 09:59:00 23:59:00 LEVAR 2022-03-07 2022-03-08 Outpatient MHIE MNA [id number] Memoria 21:30:00 05:59:59 Neurology 05 l Roger Read 2022-03-07 2022-03-08 Outpatient MHIE MNA [id number] Memoria 21:30:00 05:59:59 Neurology 05 l Roger Read 2022-03-07 2022-03-07 Outpatient Ulysses [facility] [id number] 15:30:00 23:59:59 Levar 05 Thomas 2022-03-07 2022-03-07 Outpatient MHIE IE [id number] Memoria 15:30:00 15:30:00 05 l Jacek 2022-01-25 2022-01-25 Outpatient ANTONINO STEVE [facility] [id number] [place] 09:15:00 09:15:00 [id number] [facility] 2022-01-08 2022-01-08 Transition MIKE Zhou [id number] Univers 00:00:00 00:00:00 of Ly BERNALY 350.1.13.10 [place] [id number] [facility] [address] Branch 2021-12-31 2022-01-03 [facility] Marino Newman [facility] [id number] Univers 23:48:00 13:41:00 Encounter Cristóbal Ochoa 350.1.13.10 [place] [id number] [facility] 0[address] Branch 2021-12-31 2022-01-03 Inpatient X DON MIJOAQUIM JUAN ANTONIO [id number] Univers 23:48:00 13:41:00 CRISTÓBAL reyes [facility] 2021-04-27 2021-04-27 Outpatient APRIL JOHNSON [id number] April 00:00:00 00:00:00 NABEEL Seybol d 2021-01-09 2021-01-09 Outpatient JOSÉ MIGUEL APRIL ROSADO [id number] April 00:00:00 00:00:00 DWAIN Seybol d 2021-01-04 2021-01-04 Outpatient TINA RAMIREZ APRIL ROSADO [id number] April 00:00:00 00:00:00 Seybol d 2021-01-03 2021-01-03 Ambulatory nullFlavo MNA [id number] Memoria 20:15:00 20:15:00 Pre-Reg r Neurology 04 l Yell [facility] 2021-01-03 2021-01-03 Ambulatory nullFlavo MNA [id number] Memoria 20:15:00 20:15:00 Pre-Reg r Neurology 04 l Yellnany Diezann 2021-01-03 2021-01-03 Outpatient MHIE MHIE [id number] Memoria 14:15:00 14:15:00 04 l [facility] 2021-01-03 2021-01-03 Outpatient Ulysses MISCHER MHMISCHER [id number] 14:15:00 14:15:00 Levar 04 Thomas 2020-11-24 2020-11-25 Outpatient nullFlavo MNA [id number] Memoria 19:00:00 04:59:59 r Neurology 03 l Yellnany Diezann 2020-11-24 2020-11-25 Outpatient nullFlavo MNA [id number] Memoria 19:00:00 04:59:59 r Neurology 03 l Yellnany Diezann 2020-11-24 2020-11-24 Outpatient Ulysses MISCHER MHMISCHER [id number] 14:00:00 23:59:59 Elvar 03 Thomas 2020-11-24 2020-11-24 Outpatient MHIE MHIE [id number] Memoria 14:00:00 14:00:00 03 heather DiezNeches 2020 2020-11-22 Outpatient nullFlavo MNA [id number] Memoria 20:00:00 04:59:59 r Neurology 02 l Yell Jacek 2020 2020-11-22 Outpatient nullFlavo MNA [id number] Memoria 20:00:00 04:59:59 r Neurology 02 l Roger Jacek 2020 2020 Outpatient FILIBERTO Arora DAISY [id number] 15:00:00 23:59:59 Levar 02 Thomas 2020 2020 Outpatient MHIE MHIE [id number] Memoria 15:00:00 15:00:00 02 heather Jacek 2020-11-14 2020-11-14 Outpatient APRIL VALDEZ [id number] April 00:00:00 00:00:00 DWAIN Seybol d 2020-11-02 2020-11-02 Outpatient APRIL VALDEZ [id number] April 00:00:00 00:00:00 DWAIN Seybol d 2020-10-31 2020-10-31 Office Feroz Johnson 1.2.840.114 [id number] April 13:47:35 14:17:35 Visit Nabeel Lopez 350.1.13.13 [facility] 1.2.7.2.686 [id number] 2020-10-13 2020-10-14 Outpatient nullFlavo MNA [id number] Memoria 20:30:00 04:59:59 r Neurology 01 l Yell Jacek 2020-10-13 2020-10-14 Outpatient nullFlavo MNA [id number] Memoria 20:30:00 04:59:59 r Neurology 01 l Yell Jacek 2020-10-13 2020-10-13 Outpatient FILIBERTO Arora [facility] [id number] 15:30:00 23:59:59 Levar Thomas 2020-10-13 2020-10-13 Outpatient MHIE MHIE [id number] Memoria 15:30:00 15:30:00 01 heather Jacek 2020-09-15 2020-09-15 Outpatient Ju [facility] [id number] Univers 15:40:00 15:40:00 LEONARDO reyes [facility] Results Test Description Test Time Test Comments Results Result Comments Source RADRPT 2022-03-29 22:33:39 Test Item Value Reference Range Interpretation Comme nts RADT (test code = RADRPT) EXAM: [facility] SPECTDATE: 03/29/2022INDICATION: Tremor, evaluate for Parkinson diseaseCOMPARISON: NoneTECHNIQUE: After intravenous administration of 4.78 mCi of I-123 Ioflupane, delayed SPECT images of the head were obtained at 4 hours post injection. The images were compared with normal brain database from [facility] [place].FINDINGS:There is decreased tracer activity in the bilateral putamen with the right more severe than the left side. Compared to normal brain database, there is mildly decreased tracer activity on both sides of striatae.Z score for left striatum is -0.96, right side -1.15Z score for left putamen is -1.11, right side -1.37.Z score for left caudate is -0.71, right side -0.7.IMPRESSION:Asymmetrically decreased tracer uptake in right striatum when compared to left side. Finding is suspicious for early phase of Parkinson's disease. [id number] 22:33:39 Test Item Value Reference Range Interpretation Comments RADRPT (test code = EXAM: AR Brain [facility] Imaging RADRPT) SPECTDATE: 03/29/2022INDICATION: Tremor, evaluate for Parkinson diseaseCOMPARISON: NoneTECHNIQUE: After intravenous administration of 4.78 mCi of I-123 Ioflupane, delayed SPECT images of the head were obtained at 4 hours post injection. The images were compared with normal brain database from [facility] [place].FINDINGS:There is decreased tracer activity in the bilateral putamen with the right more severe than the left side. Compared to normal brain database, there is mildly decreased tracer activity on both sides of striatae.Z score for left striatum is -0.96, right side -1.15Z score for left putamen is -1.11, right side -1.37.Z score for left caudate is -0.71, right side -0.7.IMPRESSION:Asymmetric ally decreased tracer uptake in right striatum when compared to left side. Finding is suspicious for early phase of Parkinson's disease. [facility] GLUCOSE (AUTOMATED)2022-01-03 13:42:56 Test Item Value Reference Range Interpretation Comments POCT GLU (test code = 2600549975) 114 mg/dL 70-110 H Lab Interpretation (test code = Abnormal 70093-9) [facility] GLUCOSE (AUTOMATED)2022-01-03 03:19:14 Test Item Value Reference Range Interpretation Comments POCT GLU (test code = 6497290707) 140 mg/dL 70-110 H Lab Interpretation (test code = Abnormal 20273-8) [facility] GLUCOSE (AUTOMATED)2022-01-02 23:59:28 Test Item Value Reference Range Interpretation Comments POCT GLU (test code = 5093346783) 155 mg/dL 70-110 H Lab Interpretation (test code = Abnormal 46391-0) [facility] GLUCOSE (AUTOMATED)2022-01-02 18:07:48 Test Item Value Reference Range Interpretation Comments POCT GLU (test code = 7342149118) 142 mg/dL 70-110 H Lab Interpretation (test code = Abnormal 45529-7) [facility] GLUCOSE (AUTOMATED)2022-01-02 14:18:05 Test Item Value Reference Range Interpretation Comments POCT GLU (test code = 3670783672) 104 mg/dL 70-110 Lab Interpretation (test code = Normal 92673-8) [facility] GLUCOSE (AUTOMATED)2022-01-02 14:00:11 Test Item Value Reference Range Interpretation Comments POCT GLU (test code = 9041599668) 96 mg/dL 70-110 Lab Interpretation (test code = Normal 47600-8) [id number] 13:50:45 Test Item Value Reference Range Interpretation Comments CK (test code = 1982780940) 7672 U/L 33-194 H Lab Interpretation (test code = Abnormal 80536-1) [facility] [id number] 11:20:18 Test Item Value Reference Range Interpretation Comments NT-proBNP (test code 482 pg/mL See_Comment H [Autom ated = 8852712534) message] The system which generated this result transmitted reference range : <=125. The reference range was not used to interpret this result as normal/abnormal . ALVARO (test code = ALVARO) Biotin has been reported to cause a negative bias, interpret results relative to patient's use of biotin. Lab Interpretation Abnormal (test code = 80218-9) [facility] (00203)(TOTAL CHOLESTEROL, TRIGLYCERIDES, HDL)2022-01-02 11:16:40 Test Item Value Reference Range Interpretation Comments CHOL (test code = 140 mg/dL 120-200 3215841356) HDL (test code = 39 mg/dL See_Comment L [Automated message] 8039219624) The system [employer] generated this result transmit barbara reference range : >=40. The refer ence range was not u sed to interpret th is result as normal/abnormal . HDLC RATIO (test code = See_Comment [Au tomated message] 7401155443) The system [employer] generated this result transmit barbara reference range : <=5.0. The refe rence range was not u sed to interpret th is result as normal/abnormal . TRIG (test code = 195 mg/dL 30-170 H 7945788403) LDL CHOL (test code = 62 mg/dL See_Comment [Auto mated message] 61086-4) The system [employer] generated this result transmit barbara reference range : <=160. The refe rence range was not u sed to interpret th is result as normal/abnormal . VLDL (test code = 39 mg/dL 5-60 8465258283) Lab Interpretation (test Abnormal code = 59867-5) [facility] HospitalMagnesium [id number] 11:16:20 Test Item Value Reference Range Interpretation Comments MAGNESIUM (test code = 2097865507) 1.7 mg/dL 1.7-2.4 Lab Interpretation (test code = Normal 37107-5) [facility] (NA, K, CL, CO2, GLUCOSE, BUN, CREATININE, CA)2022-01-02 11:16:19 Test Item Value Reference Range Interpretation Comments NA (test code = 137 mmol/L 135-145 7245021528) K (test code = 3.1 mmol/L 3.5-5.0 L 9692058975) CL (test code = 104 mmol/L 98-108 0864544104) CO2 TOTAL (test code = 25 mmol/L 23-31 2798270552) AGAP (test code = 2-16 1818152461) BUN (test code = 16 mg/dL 7-23 9438862638) GLUCOSE (test code = 92 mg/dL 70-110 3173102219) CREATININE (test code = 1.00 mg/dL 0.60-1.25 0648736762) CALCIUM (test code = 8.7 mg/dL 8.6-10.6 1307832786) eGFR (test code = mL/min/1.73m2 4643378782) ALVARO (test code = ALVARO) Association of [...] tests). Lab Interpretation Abnormal (test code = 46384-0) [facility] GLUCOSE (AUTOMATED)2022-01-02 05:29:09 Test Item Value Reference Range Interpretation Comments POCT GLU (test code = 9458283318) 103 mg/dL 70-110 Lab Interpretation (test code = Normal 68866-4) [facility] GLUCOSE (AUTOMATED)2022-01-02 02:17:17 Test Item Value Reference Range Interpretation Comments POCT GLU (test code = 7731877388) 177 mg/dL 70-110 H Lab Interpretation (test code = Abnormal 10195-1) [facility]2022-01-01 22:55:39 Test Item Value Reference Range Interpretation Comments POCT GLU (test code = 1146475435) 134 mg/dL 70-110 H Lab Interpretation (test code = Abnormal 61308-7) [facility]an[facility] echo (TTE)2022-01-01 22:52:33 Test Item Value Reference Range Interpretation Comments Height (test code = in 8305562489) Weight (test code = lbs 2292118098) Systolic BP (test code = mmHg 5766461400) Diastolic BP (test code mmHg = 6528131481) Heart Rate (test code = bpm 0417629623) BSA (test code = 2.46 m2 5020592140) Ao root diam (test code 3.50 cm = 6004220950) Aortic root (test code = 3.5 cm 1422763577) Ao root annulus (test 3.5 cm code = 7004409932) LVOT diameter (test code 1.85 cm = 2044200864) LVOT area (test code = 2.70 cm2 2183693218) LAV(MOD-sp4) (test code 49.30 mL = 7895315135) E wave decelartion time 0.25 s (test code = 7310227399) MV Peak E Thanh (test code 71.0 cm/s = 3519883592) MV stenosis pressure 1/2 76.1 ms time (test code = 9324627414) MV Peak A Thanh (test code 74.4 cm/s = 1779226061) E/A ratio (test code = ratio 2390775642) MV Prop V (test code = 54.30 cm/s 4126302577) MV E/e' septal (test 8.7 cm/s code = 6762195156) Tapse (test code = 2.5 cm 2497885045) LVOT stroke volume (test 74.10 cm3 code = 3684182979) LVOT peak thanh (test code 125.7 cm/s = 6153369009) LVOT mn grad (test code mmHg = 1523126332) AV LVOT peak gradient mmHg (test code = 1780239576) LVOT peak VTI (test code 27.4 cm = 0781367341) LV V1 mean (test code = 101.30 cm/s 1394394672) Aortic valve mean 100.3 cm/s velocity (test code = 5878311431) Ao peak thanh (test code = 132.3 cm/s 6823454067) Ao VTI (test code = 24.7 cm 9024133710) AV area by cont VTI 3.0 cm2 (test code = 1315289442) AV area peak thanh (test 2.6 cm2 code = 0074409464) Ao max PG (test code = 7.00 mm[Hg] 6247716971) AV peak gradient (test mmHg code = 2757928060) AV valve area (test code 3.00 cm2 = 9558634666) AV mean gradient (test mmHg code = 5102901497) LVIDD (test code = 3.80 cm 6511529050) Left Ventricular End 63.0 mL Diastolic Volume by Teichholz Method (test code = 9899063) IVS (test code = 1.56 cm 3247280692) Interventricular Septum 1.56 cm Diastolic Thickness by 2D (test code = 1406908) LVPWD (test code = 1.56 cm 4800771668) PW (test code = 1.56 cm 0.6-1.8 2903919014) EF(Teich) (test code = 55.20 % 4637182810) LVIDS (test code = 2.70 cm 1169237458) Left Ventricular End 28.2 mL Systolic Volume by Teichholz Method (test code = 6949174) FS (test code = 28 % 8287662221) EF - 2D (test code = 55.20 % 17048898) Radiology Study observation (narrative) (test code = 26705-7) ALVARO (test code = ALVARO) ?Left?Ventricle: Left [...] mL of Lumason ultrasound enhancing agent used. [facility] GLUCOSE (AUTOMATED)2022-01-01 18:09:07 Test Item Value Reference Range Interpretation Comments POCT GLU (test code = 6082257340) 153 mg/dL 70-110 H Lab Interpretation (test code = Abnormal 03191-6) [facility] GLUCOSE (AUTOMATED)2022-01-01 14:18:07 Test Item Value Reference Range Interpretation Comments POCT GLU (test code = 1768940714) 199 mg/dL 70-110 H Lab Interpretation (test code = Abnormal 28838-4) [facility] [id number] 10:37:16 Test Item Value Reference Range Interpretation Comments PHOSPHORUS (test code = 6442697895) 2.6 mg/dL 2.5-5.0 Lab Interpretation (test code = Normal 68328-8) [facility] Notes Date/Time Note Provider Source 2022-03-29 10:32:54-00:00 EXAM: NM [facility] SPECT [facility] DATE: 03/29/2022 Center INDICATION: Tremor, evaluate for Parkinson disea se COMPARISON: None TECHNIQUE: After intravenous administration of 4.78 mCi of I-123 Ioflupane, delayed SPECT images of the head were obtained at 4 hours post injection. The images were compared with normal brain database from [facility] [place]. FINDINGS: There is decreased tracer ac tivity in the bilateral putamen with the right more severe than the left side. Compared to normal brain database, there is mildly decreased tracer activity on both sides of striatae. Z score for left striatum is -0.96, right side - 1.15 Z score for left putamen is -1.11, right side -1 .37. Z score for left caudate is -0.71, right side -0 .7. IMPRESSION: Asymmetrically decreased tra cer uptake in right striatum when compared to left side. Finding is suspicious for early phase of Parkinson's disease. 2022-03-29 10:32:54-00:00 EXAM: NM Brain [facility] SPECT [facility] DATE: 03/29/2022 Center INDICATION: Tremor, evaluate for Parkinson disea se COMPARISON: None TECHNIQUE: After intravenous administration of 4.78 mCi of I-123 Ioflupane, delayed SPECT images of the head were obtained at 4 hours post injection. The images were compared with normal brain database from [facility]. FINDINGS: There is decreased tracer ac tivity in the bilateral putamen with the right more severe than the left side. Compared to normal brain database, there is mildly decreased tracer activity on both sides of striatae. Z score for left striatum is -0.96, right side - 1.15 Z score for left putamen is -1.11, right side -1 .37. Z score for left caudate is -0.71, right side -0 .7. IMPRESSION: Asymmetrically decreased tra cer uptake in right striatum when compared to left side. Finding is suspicious for early phase of Parkinson's disease."
[2022-09-19 17:02] LABS: Absolute Lymphocytes (CBC) 2.4 K/uL (0.7-4.9); Hematocrit 31.6 % (39.6-49.0); Lymphocytes % 25.3 % (15.3-44.8); MPV 7.6 fL (7.6-11.3); Platelets 533 thou/uL (152-406); RBC Red Blood Cell Count 3.72 M/uL (4.33-5.43)
[2022-09-19 17:10] LABS: Protime INR 1.01
[2022-09-19 17:32] LABS: Specific Gravity 1.022 (1.005-1.030); Urine Bacteria None Seen /HPF (<20); Urine Bilirubin NEGATIVE (Negative); Urine Blood Negative (Negative); Urine Clarity Clear (Clear); Urine Color Light-Yellow (Yellow); Urine Glucose 4+ (Over) (Negative); Urine Mucus Slight /HPF (None Seen); Urine Protein NEGATIVE (Negative); Urine RBC <5 /HPF (None Seen); Urine Urobilinogen Normal (Normal); Urine pH 5.5 (5.0-7.0)
[2022-09-19 17:33] LABS: Bilirubin Direct 0.1 mg/dL (0-0.2); Bilirubin Indirect, Calculated 0.1 mg/dL (0.2-0.8); Bilirubin Total 0.2 mg/dL (0.2-1.0); Potassium 4.1 mEq/L (3.5-5.1); Protein, Total 8.4 g/dL (6.4-8.2); Troponin High Sensitivity 4.8 pg/mL (<58.9)
[2022-09-19 17:49] LABS: Barbiturates NEGATIVE (NEGATIVE); Benzodiazepines NEGATIVE (NEGATIVE); Cocaine NEGATIVE (NEGATIVE); METHAMPHETAM NEGATIVE (NEGATIVE); Methadone NEGATIVE (NEGATIVE); Opiates NEGATIVE (NEGATIVE); Phencyclidine NEGATIVE (NEGATIVE); THC Cannibis POSITIVE (NEGATIVE)
--- NOTE | 2022-09-19 17:55 | RAD REPORT ---
EXAM DESCRIPTION: CT - Head Brain Wo Cont - 09/19/2022 5:47 pm CLINICAL HISTORY: CONFUSED COMPARISON: Head Brain Wo Cont dated 02/21/2022 TECHNIQUE: All CT scans are performed using dose optimization technique as appropriate and may inclu de automated exposure control or mA/KV adjustment according to patient size. FINDINGS: No intracranial hemorrhage, hydrocephalus or extra-axial fluid collection.No areas of brai n edema or evidence of midline shift. Mild chronic small vessel ischemic changes. The paranasal sinuses and mastoids are clear. The calvarium is intact. IMPRESSION: No acute intracranial abnormality.
--- NOTE | 2022-09-19 18:37 | EDPHYS ---
Physician Documentation [facility] Name: César Vargas Age: 71 yrs Sex: Male : 1950 Arrival Date: 09/19/2022 Time: 14:21 Bed 7 Private MD: Warren Luna ED Physician Srinivas Coles Historical: - Allergies: 09/19 15:07 escitalopram; cm10 15:07 PENICILLINS; cm10 - PMHx: 15:07 Atrial fibrillation; diabetes mellitus; GERD; Hypertensive disorder; Sleep Apnea; cm10 vertigo; Parkinson's Disease; - Immunization history:: Adult Immunizations up to date. - Social history:: Smoking status: Patient denies any tobacco usage or history of. Vital Signs: 15:05 BP 150 / 70; Pulse 79; Resp 18; Temp 98.2(TE); Pulse Ox 97% on R/A; Weight 123.83 kg; cm10 Height 5 ft. 10 in. ; Pain 7/10; 17:00 BP 144 / 83; Pulse 78; Resp 18; Pulse Ox 99% ; ko1 17:15 BP 154 / 76; Pulse 77; Resp 18; Pulse Ox 98% ; ko1 18:00 BP 165 / 81; Pulse 78; Resp 18; Pulse Ox 99% ; ko1 20:01 BP 162 / 72; Pulse 82; Resp 19 S; Pulse Ox 99% on R/A; lg3 15:05 Body Mass Index 39.17 (123.83 kg, 177.8 cm) cm10 15:05 Pain Scale: Adult cm10 MDM: 15:49 Patient medically screened. 3 09/19 16:32 Order name: Basic Metabolic Panel; Complete Time: 17:37 cp3 09/19 16:32 Order name: CBC with Diff; Complete Time: 17:37 cp3 09/19 16:32 Order name: ETOH Level; Complete Time: 17:37 cp3 09/19 16:32 Order name: Hepatic Function; Complete Time: 17:37 cp3 09/19 16:32 Order name: PT-INR; Complete Time: 17:37 cp3 09/19 16:32 Order name: Ptt, Activated; Complete Time: 17:37 cp3 09/19 16:32 Order name: Salicylate; Complete Time: 18:19 cp3 09/19 16:32 Order name: Urine Drug Screen; Complete Time: 18:12 cp3 09/19 16:32 Order name: Troponin High Sensitivity; Complete Time: 17:37 cp3 09/19 16:32 Order name: AMMONIA; Complete Time: 17:37 cp3 09/19 16:32 Order name: Urinalysis W/Microscopic; Complete Time: 17:37 cp3 09/19 18:46 Order name: Glucose, Ancillary Testing; Complete Time: 20:42 EDMS 09/19 17:37 Order name: CT Head Brain wo Cont; Complete Time: 18:12 cp3 09/19 18:38 Order name: Knee Left 3 View XRAY; Complete Time: 20:42 cp3 09/19 16:32 Order name: EKG; Complete Time: 16:32 cp3 09/19 16:32 Order name: EKG - Nurse/Tech; Complete Time: 17:19 cp3 09/19 16:32 Order name: IV Saline Lock; Complete Time: 16:46 cp3 09/19 16:32 Order name: Labs collected and sent; Complete Time: 16:46 cp3 09/19 16:32 Order name: Suicide Screening ([place]ke); Complete Time: 17:19 cp3 09/19 18:37 Order name: Glucose Level; Complete Time: 18:41 cp3 Administered Medications: 19:59 Drug: Insulin Regular Human Sub-Q 5 units {Co-Signature: kd3 (Patsy Gonzalez RN).} lg3 Route: Sub-Q; Site: abdomen; 20:00 Follow up: Response: No adverse reaction lg3 Disposition Summary: 09/19/22 18:36 Hospitalization Ordered Hospitalization Status: Inpatient Admission cp3 Provider: Warren Luna cp3 Location: Telemetry/[facility]Sur (Inpatient) cp3 Condition: Stable cp3 Problem: new cp3 Symptoms: have improved cp3 Bed/Room Type: Standard cp3 Room Assignment: 411(09/19/22 21:46) rv1 Diagnosis - Muscle weakness (generalized) cp3 - Dehydration cp3 - Chronic kidney disease, unspecified cp3 - Hyperglycemia, unspecified cp3 - Altered mental status, unspecified cp3 Forms: - Medication Reconciliation Form cp3 - SBAR form cp3 Signatures: Dispatcher [employer] Srinivas Kahn MD MD cp3 Aisha Hopson RN RN lg3 Maria C Jamison rv1 Alessandra Mahajan RN RN cm10 Patsy Gonzalez RN kd3 Corrections: (The following items were deleted from the chart) 21:46 18:36 cp3 rv1
--- NOTE | 2022-09-19 18:37 | ER ---
Nurse's Notes [facility] Name: César Vargas Age: 71 yrs Sex: Male : 1950 Arrival Date: 09/19/2022 Time: 14:21 Bed 7 Private MD: Warren Luna Diagnosis: Muscle weakness (generalized);Dehydration;Chronic kidney disease, unspecified;Hyperglycemia, unspecified;Altered mental status, unspecified Presentation: 09/19 15:05 Chief complaint: Patient states: left knee pain s/p fall 1 week ago. Pt also reports cm10 left ankle pain. Pt states that he fell getting out of the shower. Pt has a PMHx of vertigo and was recently diagnosed with Parkinsons. Coronavirus screen: Vaccine status: Patient reports receiving the 2nd dose of the covid vaccine. Ebola Screen: Patient denies travel to an Ebola-affected area in the 21 days before illness onset. No symptoms or risks identified at this time. Initial Sepsis Screen: Does the patient meet any 2 criteria? No. Patient's initial sepsis screen is negative. Does the patient have a suspected source of infection? No. Patient's initial sepsis screen is negative. Risk Assessment: Do you want to hurt yourself or someone else? Patient reports no desire to harm self or others. Onset of symptoms was September 19, 2022. 15:05 Method Of Arrival: Wheelchair cm10 15:05 Acuity: JOSELINE 3 cm10 Historical: - Allergies: 15:07 escitalopram; cm10 15:07 PENICILLINS; cm10 - PMHx: 15:07 Atrial fibrillation; diabetes mellitus; GERD; Hypertensive disorder; Sleep Apnea; cm10 vertigo; Parkinson's Disease; - Immunization history:: Adult Immunizations up to date. - Social history:: Smoking status: Patient denies any tobacco usage or history of. Screenin:28 [facility] ED Fall Risk Assessment (Adult) History of falling in the last 3 months, mb9 including since admission No falls in past 3 months (0 pts) Confusion or Disorientation No (0 pts) Intoxicated or Sedated No (0 pts) Impaired Gait No (0 pts) Mobility Assist Device Used No (0 pt) Altered Elimination No (0 pt) Score/Fall Risk Level 0 - 2 = Low Risk Oriented to surroundings, Maintained a safe environment, Educated pt \T\ family on fall prevention, incl call for assistance when getting out of bed. Abuse screen: Denies threats or abuse. Nutritional screening: No deficits noted. Tuberculosis screening: No symptoms or risk factors identified. Assessment: 16:27 General: Appears in no apparent distress. Behavior is calm, cooperative. Pain: mb9 Complains of pain in left foot Quality of pain is described as throbbing. Neuro: Boyd Agitation-Sedation Scale (RASS): 0 - Alert and Calm Level of Consciousness is awake, alert, obeys commands, Oriented to person, place, time, situation, Appropriate for age. Cardiovascular: Patient's skin is warm and dry. Respiratory: Airway is patent Respiratory effort is even, unlabored, Respiratory pattern is regular, symmetrical. GI: No signs and/or symptoms were reported involving the gastrointestinal system. : No signs and/or symptoms were reported regarding the genitourinary system. Derm: Skin is pink, warm \T\ dry. Musculoskeletal: Range of motion: intact in all extremities. 20:01 General: Appears in no apparent distress. comfortable, Behavior is calm, cooperative. lg3 Pain: Complains of pain in left knee Pain currently is 3 out of 10 on a pain scale. Neuro: No deficits noted. Boyd Agitation-Sedation Scale (RASS): 0 - Alert and Calm Level of Consciousness is awake, alert, obeys commands, Oriented to person, place, time, situation. Cardiovascular: No deficits noted. Denies chest pain, shortness of breath, Capillary refill < 3 seconds Clubbing of nail beds is absent JVD is absent Patient's skin is warm and dry. Respiratory: No deficits noted. Airway is patent Respiratory effort is even, unlabored, Respiratory pattern is regular, symmetrical. Derm: No deficits noted. No signs and/or symptoms reported regarding the dermatologic system. Skin is pink, warm \T\ dry. Musculoskeletal: No deficits noted. Circulation, motion, and sensation intact. Range of motion: intact in all extremities. Vital Signs: 15:05 BP 150 / 70; Pulse 79; Resp 18; Temp 98.2(TE); Pulse Ox 97% on R/A; Weight 123.83 kg; cm10 Height 5 ft. 10 in. ; Pain 7/10; 17:00 BP 144 / 83; Pulse 78; Resp 18; Pulse Ox 99% ; ko1 17:15 BP 154 / 76; Pulse 77; Resp 18; Pulse Ox 98% ; ko1 18:00 BP 165 / 81; Pulse 78; Resp 18; Pulse Ox 99% ; ko1 20:01 BP 162 / 72; Pulse 82; Resp 19 S; Pulse Ox 99% on R/A; lg3 15:05 Body Mass Index 39.17 (123.83 kg, 177.8 cm) cm10 15:05 Pain Scale: Adult cm10 ED Course: 14:25 Patient arrived in ED. mr 14:25 Warren Luna MD is Private Physician. mr 15:00 Srinivas Coles MD is Attending Physician. cp3 15:07 Triage completed. cm10 15:08 Arm band placed on Patient placed in waiting room. cm10 16:09 Srinivas Coles MD is Attending Physician. cp3 16:13 Srinivas Coles MD is Attending Physician. cp3 16:27 Placed in gown. Bed in low position. Call light in reach. Side rails up X 1. Client mb9 placed on continuous cardiac and pulse oximetry monitoring. NIBP monitoring applied. 16:28 No provider procedures requiring assistance completed. mb9 16:46 Basic Metabolic Panel Sent. mb9 16:46 CBC with Diff Sent. mb9 16:46 ETOH Level Sent. mb9 16:46 Hepatic Function Sent. mb9 16:46 PT-INR Sent. mb9 16:46 Ptt, Activated Sent. mb9 16:46 Salicylate Sent. mb9 16:46 AMMONIA Sent. mb9 16:46 Troponin High Sensitivity Sent. mb9 16:46 Inserted saline lock: 22 gauge in left antecubital area, using aseptic technique. mb9 16:56 Heather Christensen, RN is Primary Nurse. ko1 16:57 Urinalysis W/Microscopic Sent. mb9 16:57 Urine Drug Screen Sent. mb9 17:48 CT Head Brain wo Cont In Process Unspecified. EDMS 18:00 Provided Education on: NA. ko1 18:33 Warren Luna MD is Hospitalizing Provider. cp3 19:04 Knee Left 3 View XRAY In Process Unspecified. EDMS 22:04 Patient admitted, IV remains in place. No redness/swelling at site. lg3 Administered Medications: 19:59 Drug: Insulin Regular Human Sub-Q 5 units {Co-Signature: kd3 (Patsy Gonzalez RN).} lg3 Route: Sub-Q; Site: abdomen; 20:00 Follow up: Response: No adverse reaction lg3 Medication: 22:04 VIS not applicable for this client. lg3 Outcome: 18:36 Decision to Hospitalize by Provider. cp3 22:03 Admitted to Tele accompanied by tech, via wheelchair, room 411, Report called to [facility] Doni 22:03 Condition: stable 22:03 Instructed on the need for admit, Demonstrated understanding of instructions. 23:01 Patient left the ED. kd3 Signatures: Dispatcher [employer] EDMS Srinivas Coles MD MD cp3 Andrez, Gisele Aisha Hopson, RN RN [email or web address] Patsy Gonzalez, RN RN kd3 Heather Christensen, RN RN modesta1 Martinez, Gisele Rios, RN RN mb9 Alessandra Mahajan, RN RN cm10 Patsy Gonzalez RN kd3
--- NOTE | 2022-09-19 19:36 | RAD REPORT ---
EXAM DESCRIPTION: RAD - Knee Left 3 View - 09/19/2022 7:03 pm CLINICAL HISTORY: pain sp fall COMPARISON: No comparisons FINDINGS/IMPRESSION: No acute fracture. No malalignment. No significant focal degenerative changes.
[2022-09-19] MEDS ORDERED: INSULIN -REGULAR HUMAN 50 UNIT/0.5 ML ML ONE (20:08)
[2022-09-19 23:07] VITALS: BMI 40.7
[2022-09-19] MEDS ORDERED: cloNIDine HCL 0.1 MG TAB PO PRN (23:39)
[2022-09-19] MEDS ORDERED: ACETAMINOPHEN 500 MG TAB PO PRN (23:42)
[2022-09-19] MEDS ORDERED: NA CHLORIDE 0.9% 1,000 ML IV SCH (23:45)
[2022-09-19] MEDS ORDERED: GLUCAGON 1 MG/VIAL IM PRN (23:46)
[2022-09-19] MEDS ORDERED: D50W 25 GM/50 ML SYRINGE IV PRN (23:46)
[2022-09-19] MEDS ORDERED: D10W 125 ML IV PRN (23:53)
[2022-09-20] MEDS: TEMAZEPAM 15 MG CAP PO PRN ×2 (00:41→21:38)
[2022-09-20 06:40] LABS: Absolute Lymphocytes (CBC) 3.1 K/uL (0.7-4.9); Hematocrit 29.4 % (39.6-49.0); Lymphocytes % 31.6 % (15.3-44.8); MCV 84.1 fL (80-100); MPV 7.7 fL (7.6-11.3); Platelets 513 thou/uL (152-406)
[2022-09-20 07:06] LABS: Albumin 2.7 g/dL (3.4-5.0); Bilirubin Total 0.3 mg/dL (0.2-1.0); Potassium 3.9 mEq/L (3.5-5.1); Protein, Total 7.5 g/dL (6.4-8.2)
[2022-09-20] MEDS: INSULIN -REGULAR HUMAN 50 UNIT/0.5 ML ML SQ SCH ×4 (07:30→21:30)
--- NOTE | 2022-09-20 12:47 | RAD REPORT ---
EXAM DESCRIPTION: MRI - Brain W/Wo Cont - 09/20/2022 12:26 pm CLINICAL HISTORY: r/o stroke COMPARISON: 09/19/[address] TECHNIQUE: Multiplanar multisequence MRI of the brain performed before and after intravenous adminis tration of 20 mL MultiHance. FINDINGS: No evidence of acute infarct or other diffusion signal abnormality. No evidence of acute intracranial hemorrhage or abnormal extra-axial fluid collections. Mild diffuse parenchymal volume loss. Ventricular caliber otherwise within normal for age. Midline st ructures are unremarkable. Scattered subcortical and deep white matter T2/FLAIR hyperintensities, nonspecific, but suggestive of chronic small vessel ischemic changes. No mass effect or midline shift. No abnormal enhancement. Major vascular flow voids are preserved. Mastoid air cells and paranasal sinuses are clear. IMPRESSION: No acute intracranial process. No evidence of ventriculomegaly, mass effect, or abnormal enhancement.
[2022-09-20] MEDS: LABETALOL 100 MG TABLET PO SCH (20:00)
[2022-09-20] MEDS ORDERED: ATORVASTATIN 10 MG TAB PO SCH (21:00)
[2022-09-20] MEDS ORDERED: HOME MED 1 EA UNK (Simvastatin [Simvastatin] 20 MG Tablet) PO SCH (21:00)
[2022-09-20 22:21] VITALS: O2SAT 98
[2022-09-21 06:44] LABS: Absolute Lymphocytes (CBC) 3.5 K/uL (0.7-4.9); Hematocrit 30.5 % (39.6-49.0); Lymphocytes % 34.6 % (15.3-44.8); MCV 84.3 fL (80-100); MPV 7.5 fL (7.6-11.3); Platelets 559 thou/uL (152-406); RBC Red Blood Cell Count 3.62 M/uL (4.33-5.43)
[2022-09-21 07:04] LABS: ALT/SGPT 42 U/L (16-61); AST/SGOT 19 U/L (15-37); Albumin 2.7 g/dL (3.4-5.0); Alkaline Phosphatase 90 U/L (45-117); BUN Blood Urea Nitrogen 18 mg/dL (7-18); Bicarbonate 27 mEq/L (21-32); Bilirubin Total 0.2 mg/dL (0.2-1.0); Glomerular Filtration Rate 76 ml/min (=/>90); Glucose Level 146 mg/dL (74-106); Potassium 3.8 mEq/L (3.5-5.1); Protein, Total 7.4 g/dL (6.4-8.2); Sodium Level 138 mEq/L (136-145)
[2022-09-21 07:13] LABS: Bilirubin Direct < 0.1 mg/dL (0-0.2); Bilirubin Indirect, Calculated ND mg/dL (0.2-0.8)
[2022-09-21] MEDS ORDERED: ASPIRIN EC 81 MG TAB PO SCH (09:00)
[2022-09-21] MEDS ORDERED: FUROSEMIDE 20 MG TABLET PO SCH (09:00)
[2022-09-21] MEDS ORDERED: TAMSULOSIN 0.4 MG SR CAP PO SCH (09:00)
[2022-09-21] MEDS ORDERED: PANTOPRAZOLE 40MG TABLET PO SCH (09:00)
[2022-09-21] MEDS: LABETALOL 100 MG TABLET PO SCH (09:00)
[2022-09-21] MEDS: INSULIN -REGULAR HUMAN 50 UNIT/0.5 ML ML SQ SCH (09:49)
[2022-09-21 10:28] VITALS: BP 176/81; TEMP 96
--- NOTE | 2022-09-21 13:51 | PN ---
Date of Progress Note: 09/20/2022 Patient states he feels much better today. He has been off most of his medication and I feel that th is is significant issue, which his general condition. We will consult with Dr. Stoney simpson or his Parkinson's medicines and try and cut back on various medications to see which one was making him confused. There does not seem to be any etiological factor medically for his episode other than possibility of intermittent parkinsonism relapse medication as well. His creatinine is no w back to normal. His functional ability seems back to normal, much more alert according to him and his family. We will monitor overnight and probably discharge in a.m. HR/MODL Voice ID: [id number] Report ID: [id number]
--- NOTE | 2022-09-21 15:36 | PN ---
Date of Progress Note: 09/21/2022 Patient seems back to baseline as far as his mentation and his physical findings are concerned. His sugar did elevate, however, I feel he could be controlled on 20 units rather than the 46 units Tarcev a that he is using at home. The other situation is I spoke to the Neurology and felt that due to the questionable diagnosis and the fact that he had some significant changes both mentally and physicall y in the past week, it would be reasonable to wean him off his antiparkinsonism drugs at present. Hi s renal function is best has been in some time. I think his diet is significantly different here tolu n it is as an outpatient and his blood pressure seems to be controlled as well on labetalol, Lasix on ly with the addition of clonidine on a p.r.n. basis and so he will be discharged to continue his labe talol, Lasix, Flomax, simvastatin, Protonix, and 81 mg of aspirin, clonidine will be used on a p.r.n. basis and given Restoril at bed time and Ativan only if absolutely essential. He is to [facility] his [facility] hiat[facility] in 2 weeks and to follow up with me next week monitoring his blood pressure. The question o f anemia will also be evaluated on an outpatient basis as he has been told he was borderline in the p ast as well. In any event, he was discharged in good condition. I feel most likely etiology was a m edication effect causing the AMS. He will be discharged today. HR/MODL Voice ID: [id number] Report ID: [id number]
--- NOTE | 2022-09-23 15:38 | EKG ---
Test Date: 2022-09-19 Test Time: 17:11:30 Machine Or Machinery Mechanic: PARRIS MEASUREMENT RESULTS: Intervals: Rate: 78 VA: 214 QRSD: 98 QT: 404 QTc: 460 Eure: P: 55 VA: 214 QRS: -15 T: 2 INTERPRETIVE STATEMENTS: Sinus rhythm with 1st degree AV block with premature atrial complexes Voltage criteria for left ventricular hypertrophy Abnormal ECG Compared to ECG 02/21/2022 11:41:11 Atrial premature complex(es) now present First degree AV block now present Electronically Signed On 09-23-22 15:33:41 CDT by Addy Walls
--- NOTE | 2022-09-24 05:57 | CON ---
Date of Consultation: 09/20/2022 Reason For Consultation: Psychiatry was consulted to advise on patient's psychiatric medication. History Of Present Illness: Mr. Vargas was admitted in the ER on 09/19 on account of altered mental s tatus. He does have a psychiatric history remarkable for anxiety and depression. He is noted to hav e comorbid medical conditions such as Parkinson's, vertigo, hyperglycemia, and chronic kidney disease . The patient was admitted on account of acute confusion was noted and presented to and l ab work indicates worsening of renal failure. The patient also was noted to be on multiple medicatio ns, which included his psychiatric medications. He denies significant depressive symptoms on intervi ew, though he mentioned being worried about his medical health. He, however, denies any overall depr essive symptoms. of hallucinations or agitation. He was able to provide history currentl y. The patient denied any significant memory impairment. He says he is compliant with his psychiat antoinette medications and has not seen any benefit, so on admission via the ER was advised to stop all psyc hiatric medications until he follows with his psychiatrist, but the patient said that he will be cont inuing his venlafaxine as he depression and anxiety. No history of alcohol or substance a buse. No history of significant psychosocial stressors. Physical Examination: VITAL SIGNS: Blood pressure 134/83, pulse 78, respiratory rate is 18, O2 sat on room air is 99%. Mental Status Examination: The patient is obese man, lying in his room on the 4 th floor, appropriately dressed in hospital gown, not in any acute respiratory dressed. Alert and or iented x3. Cooperative in interview. Speech is spontaneous, normal rate and rhythm and volume. Psy chomotor activities within normal limits. Mood is fine. Affect is more congruent. Thought process is linear and circumferential. No flight of ideas. Thought content: No delusional thinking. No ru mination. No suicidal or homicidal ideation. evaluation revealed no auditory or visual h allucinations. No tactile hallucinations. Fund of knowledge good. Icelandic good. Insight, impulse control, and judgment fair. Diagnoses: Altered mental status, chronic kidney disease, hyperglycemia, anxiety, major depressive d isorder, unspecified . Recommendations: 1.The patient does not require any inpatient psychiatric admission at this time. His . 2.Continue venlafaxine at home dose. We recommend the patient to follow up with Outpatient Psychiat ry on discharge. Discussed recommendation with treatment team. GAYLA/KYAW Voice ID: [id number] Report ID: [id number]
== END 2022-09-21 13:02 | disposition home or self-care (01) | DRG 948 ==
LOC: ER 14:21 → 4TH 21:09
PROVIDERS: ADMIT Family Medicine; ATTEND Family Medicine
DX: R41.82 Altered mental status, unspecified (principal); G20 Parkinson's disease; I48.91 Unspecified atrial fibrillation; E86.0 Dehydration; N18.9 Chronic kidney disease, unspecified; E11.22 Type 2 diabetes mellitus with diabetic chronic kidney disease; E11.65 Type 2 diabetes mellitus with hyperglycemia; F32.A Depression, unspecified; F41.9 Anxiety disorder, unspecified; K21.9 Gastro-esophageal reflux disease without esophagitis; T50.905A Adverse effect of unspecified drugs, medicaments and biological substances, initial encounter; Z88.0 Allergy status to penicillin
CPT/HCPCS: 36415; 70450; 70553; 80048; 80053; 80076; 80179; 80307; 81001; 82077; 82140; 82947; 83036; 84484; 85025; 85610; 85730; 93005; 96372; 97116; 97161; 99285; A9577; G0103; J1815; J7030

== ENCOUNTER → 2023-03-05 | Emergency (ER) | payer OTHER, BC ==
[~2023-03-05] MED LIST: LIDOCAINE 1% 20 ML MDV ONE; SMZ./TMP. 800/160 MG TABLET ONE; TDAP (DIPHTH,PERTUSS(ACELL),TET VAC) 0.5 ML VIAL IMVAC ONE
--- NOTE | 2023-03-05 20:51 | EDPHYS ---
Physician Documentation [facility] Name: César Vargas Age: 72 yrs Sex: Male : 1950 Arrival Date: 03/05/2023 Time: 19:55 Bed 12 Private MD: ED Physician Wayne Kelly HPI: 03/05 20:50 This 72 yrs old Male presents to ER via Ambulatory with complaints of Laceration To Foot, Pt has H/O Diabetic Neuropathy. 20:50 Pt is a 72 year old male who presents after cutting left second toe on something at home. States he is not sure what caused the laceration because he has neuropathy. Historical: - Allergies: 20:07 escitalopram; jj7 20:07 PENICILLINS; jj7 - PMHx: 20:07 Atrial fibrillation; diabetes mellitus; GERD; Hypertensive disorder; Parkinson's jj7 disease; Sleep Apnea; Vertigo; - PSHx: 20:08 PACEMAKER; jj7 - Immunization history:: Flu vaccine is up to date. - Social history:: Smoking status: Patient denies any tobacco usage or history of. Patient uses alcohol, occasionally. Patient/guardian denies using street drugs. ROS: 20:49 Constitutional: Negative for fever, chills, and weight loss, kb 20:49 Skin: Positive for laceration(s), of the plantar aspect of left second toe, 20:49 All other systems are negative, Exam: 20:49 Constitutional: This is a well developed, well nourished patient who is awake, alert, kb and in no acute distress. Head/Face: Normocephalic, atraumatic. ENT: Moist Mucous membranes Respiratory: Respirations even and unlabored. No increased work of breathing. Talking in full sentences MS/ Extremity: Pulses equal, no cyanosis. Neurovascular intact. Full, normal range of motion. Neuro: Awake and alert, GCS 15, oriented to person, place, time, and situation. Moves all extremities. Normal gait. 20:49 Skin: injury, laceration(s), the wound is approximately 1.5 cm(s), of the plantar aspect of left second toe, that can be described as clean, no foreign body, linear, without bleeding, Vital Signs: 20:04 BP 144 / 86; Pulse 99; Resp 17; Temp 98.7; Pulse Ox 100% ; Weight 124.74 kg; Height 5 jj7 ft. 10 in. ; Pain 0/10; 20:04 Body Mass Index 39.46 (124.74 kg, 177.8 cm) [facility] 20:04 Pain Scale: Adult 7 Laceration: 20:44 Wound Repair of 1.5cm ( 0.6in ) subcutaneous laceration to plantar aspect of left kb second toe. Linear shaped.. Distal neuro/vascular/tendon intact. Anesthesia: Wound infiltrated with 1.5 mls of 1% lidocaine. Wound prep: Extensive cleansing with hibiclenz by me, Wound irrigation with saline by me. Skin closed with 3 5-0 Prolene using simple sutures and sterile technique. Patient tolerated well. MDM: 19:59 Patient medically screened. kb 20:49 Data reviewed: vital signs, nurses notes. kb 20:49 Differential diagnosis: superficial laceration, tendon injury, vascular injury. kb Counseling: I had a detailed discussion with the patient and/or guardian regarding the historical points, exam findings, and any diagnostic results supporting the discharge/admit diagnosis, the need for outpatient follow up, a family practitioner, to return to the emergency department if symptoms worsen or persist or if there are any questions or concerns that arise at home. 03/05 20:14 Order name: Dressing - Wound; Complete Time: 20:36 kb 03/05 20:14 Order name: Gloves, Sterile; Complete Time: 20:36 kb 03/05 20:14 Order name: Prolene, Sutures; Complete Time: 20:36 kb 03/05 20:14 Order name: Setup Suture Tray; Complete Time: 20:36 kb Administered Medications: 20:36 Drug: Lidocaine Infiltration (1 %) 1 vials 5 ml Infiltration once; to bedside {Note: as6 administered by provider .} Volume: 5 ml; Route: Infiltration; 21:02 Follow up: Response: No adverse reaction as6 20:47 Drug: Trimethoprim-Sulfamethoxazole PO (160 mg-800 mg (DS) 1 tablet PO once Route: PO; as6 21:02 Follow up: Response: No adverse reaction as6 20:47 Drug: Boostrix Tdap IM 0.5 ml IM once; as a single dose Route: IM; Site: right deltoid; as6 21:02 Follow up: Response: (VIS) Vaccine information sheet provided today. Questions and/or as6 concerns addressed. VIS edition date: Sep 16, 2020.; No adverse reaction 20:48 Not Given (Product Out of Stock): tetanus-diphtheria toxoidadult 0.5 ml IM once; as6 Provide Vaccine Information Statement (VIS). Disposition Summary: 03/05/23 20:51 Discharge Ordered Condition: Stable kb Diagnosis - Laceration without foreign body of left lesser toe(s) without damage to nail kb Followup: kb - With: Emergency Department - When: As needed - Reason: Worsening of condition Followup: kb - With: Private Physician - When: 2 - 3 days - Reason: Recheck today's complaints, Continuance of care, Re-evaluation by your physician Discharge Instructions: - Discharge Summary Sheet kb - Laceration Care, Adult, [id number] kb Forms: - Medication Reconciliation Form kb - Thank You Letter kb - Antibiotic Education kb - Prescription Opioid Use kb - Patient Portal Instructions kb - Leadership Thank You Letter kb Prescriptions: - Bactrim DS 800-160 mg Oral Tablet - take 1 tablet ORAL route every 12 hours for 10 days; 20 tablet; Refills: 0, kb Product Selection Permitted Signatures: Zoey Lopez, YOUTH SERVICES LIBRARIAN-C YOUTH SERVICES LIBRARIAN-Bernardo Love, RN RN as6 Alan Mason RN RN jj7 Corrections: (The following items were deleted from the chart) 20:09 20:07 PSHx: PACEMAKE (Vertigo); jj7 jj7
--- NOTE | 2023-03-05 20:51 | ER ---
Nurse's Notes [facility] Name: César Vargas Age: 72 yrs Sex: Male : 1950 Arrival Date: 03/05/2023 Time: 19:55 Bed 12 Private MD: Diagnosis: Laceration without foreign body of left lesser toe(s) without damage to nail Presentation: 03/05 20:04 Chief complaint: Patient states: [place] GOT HOME AND jj7 TOOK HIS SHOES OFF. WHEN HE TOOK HIS SOCKS OFF AND WAS WALKING AROUND THE HOUSE NOTICED BLEEDING FROM FOOT. STATES HE HAS DIABETIC NEUROPATHY AND DOESN'T KNOW HOW HE GOT A SMALL CUT BETWEEN HIS TOES. WAS NO BLEED IN HIS SOCKS. Coronavirus screen: At this time, the client does not indicate any symptoms associated with coronavirus-19. Ebola Screen: No symptoms or risks identified at this time. Complicating Factors: There are no complicating factors for this patient. DM. Initial Sepsis Screen: Does the patient meet any 2 criteria? HR > 90 bpm. Yes Does the patient have a suspected source of infection? No. Patient's initial sepsis screen is negative. Risk Assessment: Do you want to hurt yourself or someone else? Patient reports no desire to harm self or others. 20:04 Method Of Arrival: Ambulatory j7 20:04 Acuity: JOSELINE 4 jj7 21:01 Onset of symptoms was March 05, 2023. as6 Triage Assessment: 20:08 General: Appears in no apparent distress. comfortable, Behavior is calm, cooperative, jj7 appropriate for age. Pain: Denies pain. Derm: Skin LAC. Historical: - Allergies: 20:07 escitalopram; jj7 20:07 PENICILLINS; jj7 - PMHx: 20:07 Atrial fibrillation; diabetes mellitus; GERD; Hypertensive disorder; Parkinson's jj7 disease; Sleep Apnea; Vertigo; - PSHx: 20:08 PACEMAKER; jj7 - Immunization history:: Flu vaccine is up to date. - Social history:: Smoking status: Patient denies any tobacco usage or history of. Patient uses alcohol, occasionally. Patient/guardian denies using street drugs. Screenin:11 [facility] ED Fall Risk Assessment (Adult) History of falling in the last 3 months, jj7 including since admission No falls in past 3 months (0 pts) Confusion or Disorientation No (0 pts) Intoxicated or Sedated No (0 pts) Impaired Gait No (0 pts) Mobility Assist Device Used No (0 pt) Altered Elimination No (0 pt) Score/Fall Risk Level 0 - 2 = Low Risk Oriented to surroundings, Maintained a safe environment, Educated pt \T\ family on fall prevention, incl call for assistance when getting out of bed. Abuse screen: Denies threats or abuse. Nutritional screening: No deficits noted. Tuberculosis screening: No symptoms or risk factors identified. Vital Signs: 20:04 BP 144 / 86; Pulse 99; Resp 17; Temp 98.7; Pulse Ox 100% ; Weight 124.74 kg; Height 5 j7 ft. 10 in. ; Pain 0/10; 20:04 Body Mass Index 39.46 (124.74 kg, 177.8 cm) jj7 20:04 Pain Scale: Adult [facility] ED Course: 19:58 Patient arrived in ED. jj6 19:59 Zoey Lopez FNP-C [facility]. kb 19:59 Wayne Kelly MD is Attending Physician. kb 20:07 Triage completed. jj7 20:08 Arm band placed on right wrist. jj7 20:13 Bernardo Guaman, DANGELO is Primary Nurse. as6 21:00 Bed in low position. Call light in reach. Provided Education on: follow up, wound care. as6 21:00 Assist provider with laceration repair on plantar aspect of left second toe that was as6 2.5 cm. or less using sutures. Set up tray. Performed by Zoey WINTERS Dressed with 4X4s, Patient tolerated well. Patient did not have IV access during this emergency room visit. Administered Medications: 20:36 Drug: Lidocaine Infiltration (1 %) 1 vials 5 ml Infiltration once; to bedside {Note: as6 administered by provider .} Volume: 5 ml; Route: Infiltration; 21:02 Follow up: Response: No adverse reaction as6 20:47 Drug: Trimethoprim-Sulfamethoxazole PO (160 mg-800 mg (DS) 1 tablet PO once Route: PO; as6 21:02 Follow up: Response: No adverse reaction as6 20:47 Drug: Boostrix Tdap IM 0.5 ml IM once; as a single dose Route: IM; Site: right deltoid; as6 21:02 Follow up: Response: (VIS) Vaccine information sheet provided today. Questions and/or as6 concerns addressed. VIS edition date: Sep 16, 2020.; No adverse reaction 20:48 Not Given (Product Out of Stock): tetanus-diphtheria toxoidadult 0.5 ml IM once; as6 Provide Vaccine Information Statement (VIS). Medication: 21:01 Vaccine Information Statement (VIS) provided today. Questions and/or concerns as6 addressed. VIS edition date: September 16, 2020. Outcome: 20:51 Discharge ordered by MD. yi 21:01 Discharged to home ambulatory, with significant other, as6 21:01 Condition: stable 21:01 Discharge instructions given to patient, significant other, Instructed on discharge instructions, follow up and referral plans. medication usage, wound care, Demonstrated understanding of instructions, follow-up care, medications, wound care, Prescriptions given X 1, 21:02 Patient left the ED. as6 Signatures: Zoey Lopez, HUNTERC BELEM-Stephanie Rodas jj6 Bernardo Guaman, RN RN as6 Alan Mason RN RN jj7 Corrections: (The following items were deleted from the chart) 20:09 20:07 PSHx: PACEMAKE (Vertigo); jj7 jj7
[2023-03-05 21:33] VITALS: BP 144/86; TEMP 98.7; O2SAT 100
== END ==
LOC: ER 19:55
PROC: 0HQNXZZ Repair Left Foot Skin, External Approach (ICD-10-PCS; principal; 2023-03-05)
DX: S91.115A Laceration without foreign body of left lesser toe(s) without damage to nail, initial encounter (principal); Z95.0 Presence of cardiac pacemaker; Z88.0 Allergy status to penicillin; Z88.8 Allergy status to other drugs, medicaments and biological substances
CPT/HCPCS: 96372; 99284; 12001; J2001